=== PATIENT | male | born 1935 | race Caucasian/White ===

== ENCOUNTER 2020-03-01 11:00 | Inpatient (IN) | payer MEDICARE, OTHER ==
[2020-03-01] MEDS ORDERED: PIPERACILLIN/TAZOBACTAM 3.375 GM VIAL IV ONE (11:42)
[2020-03-01] MEDS ORDERED: OXYCODONE-ACETAMINOPHEN 5-325 MG TABLET PO ONE (11:42)
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
[2020-03-01 12:19] LABS: ABSOLUTE MONOCYTES (AUTO) 0.7 10^3/uL (0.1-1.4); ABSOLUTE NEUT (AUTO) 7.7 10^3/uL (1.7-8.2); BASOPHILS % (AUTO) 0.1 % (0-2); EOSINOPHILS % (AUTO) 0.4 % (0-6); HEMATOCRIT 42.2 % (37.9-51.0); HEMOGLOBIN 14.5 g/dL (13.5-17.0); LYMPHOCYTES % (AUTO) 10.8 % (13-45); MEAN CORPUSCULAR HEMOGLOBIN 32.2 pg (27.0-33.4); MEAN CORPUSCULAR HGB CONC 34.3 g/dL (32.0-36.0); MEAN CORPUSCULAR VOLUME 94 fl (80-97); MONOCYTES % (AUTO) 7.4 % (3-13); PLATELET COUNT 171 10^3/uL (150-450); RED CELL DISTRIBUTION WIDTH 12.5 % (11.5-14.0); SEGMENTED NEUTROPHILS % (AUTO) 81.3 % (42-78); TOTAL CELLS COUNTED % (AUTO) 100 %; WHITE BLOOD COUNT 9.4 10^3/uL (4.0-10.5)
[2020-03-01 12:22] LABS: APPEARANCE,URINE CLEAR; BILIRUBIN,URINE NEGATIVE (NEGATIVE); COLOR,URINE YELLOW; GLUCOSE, URINE >=500 mg/dL (NEGATIVE); KETONES,URINE NEGATIVE (NEGATIVE); PROTEIN,URINE 100 mg/dL (NEGATIVE); URINE SPECIFIC GRAVITY 1.033; UROBILINOGEN,URINE NEGATIVE mg/dL (<2.0)
[2020-03-01 12:42] LABS: BLOOD UREA NITROGEN 12 mg/dL (7-20); CARBON DIOXIDE 33 mmol/L (22-30); CHLORIDE 95 mmol/L (98-107); GLUCOSE 353 mg/dL (75-110); POTASSIUM 3.9 mmol/L (3.6-5.0)
[2020-03-01 12:43] LABS: ALBUMIN 3.6 g/dL (3.5-5.0); ALKALINE PHOSPHATASE 79 U/L (38-126); ANION GAP 7 (5-19); ASPARTATE AMINO TRANSFERASE 14 U/L (17-59); BILIRUBIN,DIRECT 0.1 mg/dL (0.0-0.4); BILIRUBIN,TOTAL 0.7 mg/dL (0.2-1.3); C-REACTIVE PROTEIN 88.8 mg/L (<10.0); TOTAL PROTEIN 6.6 g/dL (6.3-8.2)
[2020-03-01 12:44] LABS: URINE AMPHETAMINES SCREEN NEGATIVE; URINE BARBITURATES SCREEN NEGATIVE; URINE BENZODIAZEPINES SCREEN NEGATIVE; URINE COCAINE SCREEN NEGATIVE; URINE MARIJUANA (THC) SCREEN NEGATIVE; URINE METHADONE SCREEN NEGATIVE; URINE PHENCYCLIDINE SCREEN NEGATIVE
[2020-03-01 12:46] LABS: ALCOHOL < 10 mg/dL (NONE DETECTED)
[2020-03-01 13:02] LABS: ERYTHROCYTE SEDIMENTATION RATE 32 mm/hr (0-20)
--- NOTE | 2020-03-01 13:13 | RADIOLOGY REPORT (SQ) ---
EXAM DESCRIPTION: ANKLE LEFT COMPLETE IMAGES COMPLETED DATE/TIME: 03/01/2020 1:04 pm REASON FOR STUDY: ulcer COMPARISON: None. NUMBER OF VIEWS: Three views. TECHNIQUE: AP, lateral, and oblique without weight bearing radiographic images acquired of the left ankle. LIMITATIONS: None. FINDINGS: MINERALIZATION: Normal. BONES: No acute fracture or dislocation. No worrisome bone lesions. No significant osteophytes. JOINTS: No effusions. SOFT TISSUES: Soft tissue ulcer overlying the lateral malleolus. No conventional radiographic eviden ce of osteomyelitis. OTHER: No other significant finding. IMPRESSION: Soft tissue ulcer. No conventional radiographic evidence of osteomyelitis. TECHNICAL DOCUMENTATION: JOB ID: [id number] 2010 [employer]- All Rights Reserved Reading location - IP/workstation name: [email or web address]
--- NOTE | 2020-03-01 13:14 | RADIOLOGY REPORT (SQ) ---
EXAM DESCRIPTION: CHEST 2 VIEWS IMAGES COMPLETED DATE/TIME: 03/01/2020 1:04 pm REASON FOR STUDY: copd COMPARISON: 05/04/2011 EXAM PARAMETERS: NUMBER OF VIEWS: two views TECHNIQUE: Digital Frontal and Lateral radiographic views of the chest acquired. RADIATION DOSE: NA LIMITATIONS: none FINDINGS: LUNGS AND PLEURA: No opacities, masses or pneumothorax. No pleural effusion. MEDIASTINUM AND HILAR STRUCTURES: No masses or contour abnormalities. HEART AND VASCULAR STRUCTURES: Heart normal size. No evidence for failure. BONES: Focal right upper posterior rib deformity is unchanged. HARDWARE: None in the chest. OTHER: No other significant finding. IMPRESSION: NO ACUTE RADIOGRAPHIC FINDING IN THE CHEST. TECHNICAL DOCUMENTATION: JOB ID: [id number] 2010 [employer]- All Rights Reserved Reading location - IP/workstation name: [email or web address]
[2020-03-01] MEDS ORDERED: ACETAMINOPHEN 325 MG TABLET PO PRN (16:17)
[2020-03-01] MEDS ORDERED: PROMETHAZINE HCL 25 MG TABLET PO PRN (16:17)
[2020-03-01] MEDS ORDERED: MAG HYDROX/AL HYDROX/SIMETH SUSP 30 ML UDCUP PO PRN (16:17)
[2020-03-01] MEDS ORDERED: MAGNESIUM HYDROXIDE SUSP 30 ML UDCUP PO PRN (16:17)
[2020-03-01] MEDS ORDERED: DEXTROSE 50%-WATER 25 GM/50 ML DISP.SYRIN IV PRN ×2 (16:30)
[2020-03-01] MEDS ORDERED: DEXTROSE 40% GEL 15 GM TUBE PO PRN ×2 (16:30)
[2020-03-01] MEDS ORDERED: GLUCAGON,HUMAN RECOMB 1 MG INJ IM PRN (16:30)
[2020-03-01] MEDS ORDERED: LORAZEPAM INJ 2 MG/1 ML VIAL IV PRN (17:05)
[2020-03-01] MEDS ORDERED: NICOTINE 21 MG/24 HR PATCH.TD24 TD PRN (17:05)
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
--- NOTE | 2020-03-01 17:12 | ADVANCED CARE ---
- Diagnosis (1) Diabetic ulcer of ankle Diagnosis Current: Yes (2) Cellulitis of left ankle Diagnosis Current: Yes (3) Hyperglycemia due to type 2 diabetes mellitus Diagnosis Current: Yes (4) Hypertension Diagnosis Current: Yes (5) Ankle pain Diagnosis Current: Yes (6) Hyponatremia Diagnosis Current: Yes (7) Tobacco dependence due to cigarettes Diagnosis Current: Yes (8) Alcohol dependence Diagnosis Current: Yes (9) Malnutrition of mild degree Diagnosis Current: Yes (10) Noncompliance Diagnosis Current: Yes Attendance: Discussion was held at bedside with patient Resuscitation Status: Do Not Resuscitate Discussion: We did discuss the CODE STATUS decision. I reassured the patient that every avenue of treatment will be pursue even if he chooses DNR. That decision only comes into play if there were a catastrophic event with cardiac arrest or respiratory failure. He has no relatives at this time. He is restraining from his children. He cannot in fact name a decision maker. Evaluated realistic outcomes. I explained to him that this hospitalization could result in nursing home placement or at least home health. He did mention that he would not want to be a long-term resident of the penitentiary. He will be DO NOT RESUSCITATE at this time. He certainly is free to change his mind. Hopefully he will consider someone to make decisions if he is not able. Care Planning Goals: Consider a decision maker for consider completing the living well during this hospitalization Document(s) Completed: None Time Spent: 20 minutes
[2020-03-01] MEDS: PIPERACILLIN SODIUM/TAZOBACTAM 3.375 GM in NORMAL SALINE 100 ML IV SCH (18:46)
[2020-03-01] MEDS: DOCUSATE SODIUM 100 MG CAPSULE PO SCH (18:48)
[2020-03-01] MEDS ORDERED: LIDOCAINE 1% INJ-PF (10 MG/ML) 30 ML SDV ONE (19:57)
[2020-03-01] MEDS ORDERED: LIDOCAINE 1% INJ-PF (10 MG/ML) 30 ML SDV IM ONE (21:00)
--- NOTE | 2020-03-01 21:29 | PDOC CONSULTATION ---
Consultation Consult Date: 03/01/20 Attending physician:: DONTE HERNANDEZ Provider Consulted: TAYLOR BAIG Consult reason:: left malleolar ulcer History of Present Illness Admission Date/PCP: 03/01/20 15:42 History of Present Illness: JOHANA BOND is a 84 year old male who presents with a large left lateral malleolus ulcer. Patient has not had significant medical care in the last 15 years. Denies fever chills. Consult was made for debridement of the left lateral malleolus ulcer. Past Medical History Cardiac Medical History: Reports: Myocardial Infarction, Hypertension Pulmonary Medical History: Reports: Chronic Obstructive Pulmonary Disease (COPD) Neurological Medical History: Denies: Hemorrhagic CVA, Ischemic CVA Endocrine Medical History: Reports: Diabetes Mellitus Type 2 Denies: Hypothyroidism Renal/ Medical History: Denies: Chronic Kidney Disease, Nephrolithiasis Malignancy Medical History: Reports: Lung Cancer Musculoskeltal Medical History: Reports: Arthritis Psychiatric Medical History: Reports: Alcohol Dependency, Tobacco Dependency Denies: Depression Hematology: Denies: Anemia, Bleeding Tendencies Infectious Medical History: Reports: None Past Surgical History Past Surgical History: Reports: Other - He reports an operation on his throat but does not know what it was Social History Lives with: Alone, Other - He is from his Heaven estranged from his children Smoking Status: Current Every Day Smoker Cigarettes Packs Per Day: 1 Electronic Cigarette use?: No Last Time Smoked: prior to ED visit 03/01/20 Frequency of Alcohol Use: Heavy Hx Recreational Drug Use: No Drugs: None Hx Prescription Drug Abuse: No - Advance Directive Resuscitation Status: Do Not Resuscitate Family History Family History: DM, Malignancy, Other - Kidney failure Parental Family History Reviewed: No Children Family History Reviewed: NA Sibling(s) Family History Reviewed.: NA Medication/Allergy Home Medications: Acetaminophen [Acetaminophen Extra Strength] 500 mg PO DAILYP PRN 03/01/20 Allergies/Adverse Reactions: No Known Allergies Allergy (Unverified 06/21/14 06:12) Review of Systems Constitutional: PRESENT: fatigue, weakness Eyes: ABSENT: as per HPI, visual disturbances, other Ears: ABSENT: as per HPI, hearing changes, other Nose, Mouth, and Throat: ABSENT: as per HPI, headache(s), mouth pain, sore throat, vertigo, other Breasts: ABSENT: as per HPI, other Cardiovascular: ABSENT: as per HPI, chest pain, dyspnea on exertion, edema, orthropnea, palpitations, other Respiratory: ABSENT: as per HPI, cough, dyspnea, hemoptysis, sputum, other Gastrointestinal: ABSENT: as per HPI, abdominal pain, bloating, coffee ground emesis, constipation, diarrhea, dysphagia, heartburn, hematemesis, hematochezia, melena, nausea, vomiting, other Musculoskeletal: ABSENT: as per HPI, back pain, deformity, joint swelling, muscle weakness, other Integumentary: PRESENT: lesions Neurological: PRESENT: lack of coordination, numbness, weakness Psychiatric: ABSENT: as per HPI, anxiety, depression, hallucinations, homidical ideation, suicidal ideation, other Endocrine: ABSENT: as per HPI, cold intolerance, flushing, heat intolerance, menstrual abnormalities, polydipsia, polyphagia, polyuria, other Hematologic/Lymphatic: ABSENT: as per HPI, easy bleeding, easy bruising, lymphadenopathy, other Allergic/Immunologic: ABSENT: as per HPI, seasonal rhinorrhea, other Physical Exam Vital Signs: Temp Pulse Resp BP Pulse Ox 98.0 F 98 16 159/83 H 93 03/01/20 18:14 03/01/20 19:55 03/01/20 19:55 03/01/20 18:14 03/01/20 19:55 Intake & Output 02/29/20 03/01/20 03/02/20 06:59 06:59 06:59 Intake Total 100 Balance 100 Weight 56.9 kg General appearance: PRESENT: cooperative, disheveled Head exam: PRESENT: normocephalic Eye exam: PRESENT: EOMI Ear exam: PRESENT: normal external ear exam Mouth exam: PRESENT: moist Teeth exam: PRESENT: poor dentation Neck exam: PRESENT: full ROM Respiratory exam: PRESENT: clear to auscultation sameer Cardiovascular exam: PRESENT: RRR Pulses: PRESENT: normal femoral pulses Breast: PRESENT: Normal GI/Abdominal exam: PRESENT: soft Rectal exam: PRESENT: deferred Extremities exam: PRESENT: +1 edema - There is 1+ pitting edema in the left lower extremity there is a proximately 4 cm diameter round malleolus ulcer with a necrotic base., other Psychiatric exam: PRESENT: appropriate affect Skin exam: PRESENT: dry Results Laboratory Results: 03/01/20 11:46 03/01/20 11:46 03/01/20 03/01/20 03/01/20 11:46 11:46 11:46 WBC 9.4 RBC 4.50 Hgb 14.5 Hct 42.2 MCV 94 MCH 32.2 MCHC 34.3 RDW 12.5 Plt Count 171 Seg Neutrophils % 81.3 H Sodium 135.2 L Potassium 3.9 Chloride 95 L Carbon Dioxide 33 H Anion Gap 7 BUN 12 Creatinine 0.59 Est GFR ( Amer) > 60 Glucose 353 H Lactic Acid 1.3 Calcium 9.0 Magnesium 1.6 Total Bilirubin 0.7 AST 14 L Alkaline Phosphatase 79 C-Reactive Protein 88.8 H Total Protein 6.6 Albumin 3.6 Urine Color Urine Appearance Urine pH Ur Specific [place] Urine Protein Urine Glucose (UA) Urine Ketones Urine Blood Urine RBC (Auto) 03/01/20 11:46 WBC RBC Hgb Hct MCV MCH MCHC RDW Plt Count Seg Neutrophils % Sodium Potassium Chloride Carbon Dioxide Anion Gap BUN Creatinine Est GFR ( Amer) Glucose Lactic Acid Calcium Magnesium Total Bilirubin AST Alkaline Phosphatase C-Reactive Protein Total Protein Albumin Urine Color YELLOW Urine Appearance CLEAR Urine pH 6.0 Ur Specific [place] 1.033 Urine Protein 100 H Urine Glucose (UA) >=500 H Urine Ketones NEGATIVE Urine Blood NEGATIVE Urine RBC (Auto) 0 Impressions: Chest X-Ray 03/01/20 11:39 IMPRESSION: NO ACUTE RADIOGRAPHIC FINDING IN THE CHEST. Ankle X-Ray 03/01/20 11:41 IMPRESSION: Soft tissue ulcer. No conventional radiographic evidence of osteomyelitis. Assessment & Plan - Plan Summary Plan Summary: Pression lateral malleolus ulcer left leg most most probably pressure induced We will plan on bedside debridement.
--- NOTE | 2020-03-01 21:32 | Operative Report ---
Nonrecallable Operative Report DATE OF SURGERY: 03/01/20 PREOPERATIVE DIAGNOSIS: Left lateral malleolar ulcer POSTOPERATIVE DIAGNOSIS: Left lateral malleolar ulcer OPERATION: Debridement of left lateral malleolar ulcer SURGEON: TAYLOR BAIG ANESTHESIA: Local TISSUE REMOVED OR ALTERED: Necrotic tissue from left lateral malleolus COMPLICATIONS: None ESTIMATED BLOOD LOSS: 5 cc INTRAOPERATIVE FINDINGS: See note PROCEDURE: Procedure note; after appropriate timeout and site verification the procedure commenced. The left lateral foot was prepped and draped with Betadine prep. After appropriate timeout and site verification procedure commenced. Using a 11 blade and sterile scissors the 4 cm ulcer was debrided of the necrotic tissue at its base to clean bleeding tissue. However at the base of the wound there was obvious bone involvement. This was debrided with abrasive debriding using Kerlix gauze. The bone edges bled. The wound was admitted back to fairly normal-appearing granulation tissue underneath the eschar. The patient tolerated the procedure well a sterile dressing was applied. We will begin wet-to-dry dressings.
[2020-03-01] MEDS: ASPIRIN 81 MG TABLET, ENT COATED PO SCH (22:25)
[2020-03-01] MEDS: INSULIN REG, HUMAN 100 UNIT/ML 3 ML VIAL (PYX) SUBCUT SCH (22:25)
[2020-03-01] MEDS: HEPARIN SOD (PORCINE) 5,000 UNIT/ML 1 ML VIAL SUBCUT SCH (22:26)
[2020-03-01] MEDS: OXYCODONE-ACETAMINOPHEN 5-325 MG TABLET PO PRN (22:27)
[2020-03-01] MEDS: ATORVASTATIN CALCIUM 20 MG TABLET PO SCH (22:28)
[2020-03-01] MEDS: FAMOTIDINE 20 MG TABLET PO SCH (22:28)
[2020-03-02] MEDS: PIPERACILLIN SODIUM/TAZOBACTAM 3.375 GM in NORMAL SALINE 100 ML IV SCH ×4 (00:58→17:01)
[2020-03-02] MEDS: HEPARIN SOD (PORCINE) 5,000 UNIT/ML 1 ML VIAL SUBCUT SCH ×3 (06:12→21:22)
[2020-03-02 06:34] LABS: ABSOLUTE LYMPHOCYTES (AUTO) 1.2 10^3/uL (0.5-4.7); ABSOLUTE NEUT (AUTO) 6.9 10^3/uL (1.7-8.2); BASOPHILS % (AUTO) 0.2 % (0-2); EOSINOPHILS % (AUTO) 0.5 % (0-6); LYMPHOCYTES % (AUTO) 13.1 % (13-45); MEAN CORPUSCULAR HEMOGLOBIN 32.3 pg (27.0-33.4); MEAN CORPUSCULAR HGB CONC 35.1 g/dL (32.0-36.0); MEAN CORPUSCULAR VOLUME 92 fl (80-97); MONOCYTES % (AUTO) 10.7 % (3-13); PLATELET COUNT 162 10^3/uL (150-450); RED BLOOD COUNT 4.02 10^6/uL (4.35-5.55); RED CELL DISTRIBUTION WIDTH 12.5 % (11.5-14.0); SEGMENTED NEUTROPHILS % (AUTO) 75.5 % (42-78); TOTAL CELLS COUNTED % (AUTO) 100 %; WHITE BLOOD COUNT 9.1 10^3/uL (4.0-10.5)
[2020-03-02 06:53] LABS: ANION GAP 6 (5-19); BLOOD UREA NITROGEN 17 mg/dL (7-20); CALCIUM 8.4 mg/dL (8.4-10.2); CARBON DIOXIDE 31 mmol/L (22-30); CHLORIDE 98 mmol/L (98-107); GLUCOSE 119 mg/dL (75-110); POTASSIUM 3.4 mmol/L (3.6-5.0)
[2020-03-02 07:01] LABS: PREALBUMIN 7.3 mg/dL (17.6-36.0)
[2020-03-02] MEDS: INSULIN REG, HUMAN 100 UNIT/ML 3 ML VIAL (PYX) SUBCUT SCH ×4 (07:28→22:48)
--- NOTE | 2020-03-02 08:17 | RADIOLOGY REPORT (SQ) ---
EXAM DESCRIPTION: ARTERIAL LOWER EXTREM BILAT IMAGES COMPLETED DATE/TIME: 03/01/2020 5:59 pm REASON FOR STUDY: Large malleolus ulcer with poor circulation COMPARISON: Left ankle films 03/01/2020 TECHNIQUE: Dynamic and static washburn scale and color images acquired of the lower extremity arteries. Additional selected spectral images recorded. ABIs were not recorded. LIMITATIONS: None. FINDINGS: RIGHT LEG: ABIS: Not recorded INFLOW ARTERIES: Normal, no obstruction evident. FEMORAL ARTERIES:Multiphasic waveforms. Normal, no velocity elevation to suggest focal stenosis. Norm al color Doppler evaluation. No aneurysm. POPLITEAL ARTERY:Multiphasic waveforms. Normal, no velocity elevation to suggest focal stenosis. Norm al color Doppler evaluation. No aneurysm. PATENT TIBIOPERONEAL TRUNK AND 3 VESSEL RUNOFF: Proximal posterior tibial artery is occluded. Proxim al peroneal artery is occluded. Anterior tibial artery is patent throughout the calf with monophasic flow to the dorsalis pedis. TBI: Not performed. OTHER: No other significant finding. LEFT LEG: ABIS: Not recorded INFLOW ARTERIES: Normal, no obstruction evident. FEMORAL ARTERIES:Multiphasic waveforms. Normal, no velocity elevation to suggest focal stenosis. Norm al color Doppler evaluation. No aneurysm. POPLITEAL ARTERY:Monophasic waveforms. Normal, no velocity elevation to suggest focal stenosis. Michelle l color Doppler evaluation. No aneurysm. PATENT TIBIOPERONEAL TRUNK AND 3 VESSEL RUNOFF: Occluded posterior tibial artery proximally. Monopha sic flow seen at the ankle distally. Monophasic flow in the peroneal artery, and throughout the ante rior tibial, and dorsalis pedis artery. TBI: Not performed. OTHER: No other significant finding. IMPRESSION: Bilateral infrapopliteal disease COMMENT: [facility] NORMAL: Greater than 1.0 MINIMAL DISEASE: 0.9 to 1.0 CLAUDICATION: 0.5 to 0.9 SEVERE ARTERIAL DISEASE: Less than 0.5 [facility] NORMAL: Greater than 1.0 (1.2 If Heavy Calcifications) NORMAL TO MILD ISCHEMIA: 0.8 to 1.0 MODERATE ISCHEMIA: 0.4 to 0.8 SEVERE ISCHEMIA: Less than 0.4 TECHNICAL DOCUMENTATION: JOB ID: [id number] 2010 [employer]- All Rights Reserved Reading location - IP/workstation name: [id number]
--- NOTE | 2020-03-02 09:53 | PDOC PROGRESS REPORT ---
Subjective Progress Note for:: 03/02/20 Subjective:: Patient sleepy this morning. Still with some short-term recall. Biggest complaint is pain in the left ankle. Reason For Visit: INFECTED LEFT LATERAL MALLEOLUS ULCE, UNCONTROLLED Physical Exam Vital Signs: Temp Pulse Resp BP Pulse Ox 98.2 F 76 16 131/82 H 96 03/02/20 07:57 03/02/20 07:57 03/02/20 07:57 03/02/20 07:57 03/02/20 07:57 Intake & Output 03/01/20 03/02/20 03/03/20 06:59 06:59 06:59 Intake Total 1000 100 Output Total 1025 Balance -25 100 Weight 70 kg General appearance: PRESENT: cooperative, mild distress, thin Head exam: PRESENT: atraumatic, normocephalic Eye exam: PRESENT: conjunctiva pink. ABSENT: scleral icterus Ear exam: PRESENT: normal external ear exam. ABSENT: bleeding, drainage Mouth exam: PRESENT: dry mucosa, tongue midline Teeth exam: PRESENT: poor dentation Respiratory exam: PRESENT: clear to auscultation sameer, symmetrical, unlabored. ABSENT: rales, rhonchi, tachypnea, wheezes Cardiovascular exam: PRESENT: RRR, +S1, +S2. ABSENT: diastolic murmur, irregular rhythm, systolic murmur GI/Abdominal exam: PRESENT: normal bowel sounds, soft, other - Palpable aneurysm noted today. ABSENT: distended, guarding, tenderness Rectal exam: PRESENT: deferred Gentrourinary exam: ABSENT: indwelling catheter Extremities exam: PRESENT: +1 edema - Left leg Neurological exam: PRESENT: alert, awake, oriented to person, oriented to place, oriented to situation. ABSENT: altered Psychiatric exam: PRESENT: flat affect. ABSENT: agitated, anxious Focused psych exam: ABSENT: delusional, paranoid, restlessness Skin exam: PRESENT: dry, warm. ABSENT: rash Results Laboratory Results: 03/02/20 05:37 03/02/20 05:37 03/01/20 03/01/20 03/01/20 11:46 11:46 11:46 WBC 9.4 RBC 4.50 Hgb 14.5 Hct 42.2 MCV 94 MCH 32.2 MCHC 34.3 RDW 12.5 Plt Count 171 Seg Neutrophils % 81.3 H Sodium 135.2 L Potassium 3.9 Chloride 95 L Carbon Dioxide 33 H Anion Gap 7 BUN 12 Creatinine 0.59 Est GFR ( Amer) > 60 Glucose 353 H Lactic Acid 1.3 Calcium 9.0 Magnesium 1.6 Total Bilirubin 0.7 AST 14 L Alkaline Phosphatase 79 C-Reactive Protein 88.8 H Total Protein 6.6 Albumin 3.6 Prealbumin Urine Color Urine Appearance Urine pH Ur Specific [place] Urine Protein Urine Glucose (UA) Urine Ketones Urine Blood Urine RBC (Auto) 03/01/20 03/02/20 03/02/20 11:46 05:37 05:37 WBC 9.1 RBC 4.02 L Hgb 13.0 L Hct 37.0 L MCV 92 MCH 32.3 MCHC 35.1 RDW 12.5 Plt Count 162 Seg Neutrophils % 75.5 Sodium 134.7 L Potassium 3.4 L Chloride 98 Carbon Dioxide 31 H Anion Gap 6 BUN 17 Creatinine 0.47 L Est GFR ( Amer) > 60 Glucose 119 H Lactic Acid Calcium 8.4 Magnesium 1.5 L Total Bilirubin AST Alkaline Phosphatase C-Reactive Protein Total Protein Albumin Prealbumin 7.3 L Urine Color YELLOW Urine Appearance CLEAR Urine pH 6.0 Ur Specific [place] 1.033 Urine Protein 100 H Urine Glucose (UA) >=500 H Urine Ketones NEGATIVE Urine Blood NEGATIVE Urine RBC (Auto) 0 Impressions: Chest X-Ray 03/01/20 11:39 IMPRESSION: NO ACUTE RADIOGRAPHIC FINDING IN THE CHEST. Ankle X-Ray 03/01/20 11:41 IMPRESSION: Soft tissue ulcer. No conventional radiographic evidence of osteomyelitis. Lower Extremity Ultrasound 03/01/20 17:00 IMPRESSION: Bilateral infrapopliteal disease Assessment and Plan - Diagnosis (1) Diabetic ulcer of ankle Is this a current diagnosis for this admission?: Yes Plan: 03/01/2020 Patient on his diabetes was not seen a physician in 15 years per his report. He has a very foul-smelling ulcer on the left lateral malleolus. X-rays were taken and there were no gross changes in the cortex. His sed rate and CRP are elevated. Is it makes a difference in the treatment plan, especially length of treatment with antibiotics, we may need to obtain an MRI. His toes are cold and there could be an arterial component to this and so I have ordered Doppler studies of his arterial circulation in his legs. For now we will do saline wet-to-dry dressings until the patient is evaluated by surgery. 03/02/[address] Barksdale intervention with debridement. Report states that there was granulation tissue under the eschar. We will continue aggressive wound care and consider referral to the wound care center as an outpatient. Arterial Doppler studies of the legs show significant disease below the popliteal artery bilaterally. There is likely an arterial component to the ulcer as well. (2) Cellulitis of left ankle Is this a current diagnosis for this admission?: Yes Plan: 03/01/2020 Day specimen was sent to the microbiology lab. Zosyn was initiated due to its broad-spectrum coverage. We will continue to monitor. The patient's white blood cell count was not elevated and this ulcer has most likely been there for many months. 03/02/2020 The wound culture is growing group B beta-hemolytic strep. This is usually sensitive to penicillin class antibiotics. He did have one blood culture bottle that was positive for coagulase-negative staph. This is likely a contaminant. If there are no other new culture results tomorrow I will change his antibiotic therapy to a penicillin-based agent. (3) Hyperglycemia due to type 2 diabetes mellitus Qualifiers: Diabetes mellitus assisted insulin use: without rodent exterminator use Qualified Code(s): E11.65 - Type 2 diabetes mellitus with hyperglycemia Is this a current diagnosis for this admission?: Yes Plan: 03/02/2020 The patient is not seeing any physicians. He states that he stopped all his medications many years ago. Because of reports in the news about adverse effects of different medications he wants to try and treat things without the use of prescription drugs. His glucose on admission was 353. I have ordered a hemoglobin A1c for the morning. I have started him on metformin as well as sliding scale coverage with meals time and bedtime Accu-Cheks. 03/02/2020 The sugars are responding to metformin and insulin sliding scale. I will try and construct a regimen of oral agents as I do not believe he will be able to manage insulin therapy at home. (4) Hypertension Qualifiers: Hypertension type: essential hypertension Qualified Code(s): I10 - Essential (primary) hypertension Is this a current diagnosis for this admission?: Yes Plan: 03/01/2020 I have started low-dose lisinopril considering his blood pressure with his underlying diabetes. Continue to monitor vital signs. 03/02/2020 Blood pressure is improved. I will give the lisinopril more time before adding additional agents or changing the dose. (5) Ankle pain Qualifiers: Chronicity: chronic Is this a current diagnosis for this admission?: Yes Plan: 03/01/2020 He states that the pain is been there for some time. This is consistent with having the ulcer and infection. He states that he will get an achy shooting pain that resolves within minutes. This is sporadic. Pain has affected his ability to walk. Nonnarcotic and narcotic analgesia has been ordered. 03/02/2020 Still having pain today but he did have surgical debridement. Based on his presentation tomorrow I will initiate physical therapy. (6) Hyponatremia Is this a current diagnosis for this admission?: Yes Plan: 03/01/2020 Serum sodium is just below the lower limit normal. Will monitor at this time. This is clinically insignificant currently. 03/02/2020 Still with mildly decreased serum sodium. We will continue to monitor. (7) Tobacco dependence due to cigarettes Is this a current diagnosis for this admission?: Yes Plan: 03/01/2020 The patient still smokes up to 1 pack of cigarettes daily. A nicotine patch will be made available. 03/02/2020 No evidence of nicotine withdrawal (8) Alcohol dependence Qualifiers: Substance use status: uncomplicated Qualified Code(s): F10.20 - Alcohol dependence, uncomplicated Is this a current diagnosis for this admission?: Yes Plan: 03/01/2020 He has a history of severe alcoholism drinking as much as 1/5 of alcohol a day. Currently he states that he does not drink every day but on some days he will drink up to one half a pint of spirits. His toxicology screen was negative for alcohol at the time of this admission. 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 We will continue to interact with the patient's family introduced a Mini-Mental status exam to see how he performs. (9) Malnutrition of mild degree Is this a current diagnosis for this admission?: Yes Plan: 03/01/2020 It is difficult to assess the timeframe due to his poor memory. He states that before last Tome[place] he was over 250 pounds. His BMI is down to 18 he admits very poor appetite. He exhibits obvious decreased muscle mass and reports weakness and fatigue. I have asked for a dietitian consult 03/02/2020 Please see the registered dietitian note. The patient actually qualifies for moderate degree malnutrition based on the dietitians deeper investigation. Multiple supplements have been added for wound healing and with regard to his alcoholism. In addition protein supplements have been added to his meal trays. Continue daily weights. (10) Noncompliance Is this a current diagnosis for this admission?: Yes Plan: 03/01/2020 Long history of not seeing any physicians. He stopped taking his medications in the past. He asked if there is a way that he could see the doctor and then just keep getting his medications from the drugstore. He also wants to try and treat all of his comorbidities without prescriptions. I told him that this is not going to be possible. 03/02/2020 I had a long discussion with his designated contact who is his cousin Cheryle. She is in [place]. It is too early but we did discuss possibilities of dischar ge planning. The patient would likely benefit from half-way especially with his wound care. He has been a unable to take care of himself at home. His medication regimen will likely be difficult for him to manage especially with his history of noncompliance. We will need to construct a regimen that is straightforward and consisting of oral medications. Whether or not he will take them this is different story. (11) Abdominal aortic aneurysm Qualifiers: Presence of rupture: without rupture Qualified Code(s): I71.4 - Abdominal aortic aneurysm, without rupture Is this a current diagnosis for this admission?: Yes Plan: 03/02/2020 The patient's unruptured infrarenal abdominal aortic aneurysm has grown to 6 x 6 cm. This is up from 5 x 5 cm in 2010. Will control with aspirin, statin and antihypertensive therapy. Ideally imaging studies to monitor would be appropriate however the patient's noncompliant issues will make this difficult. 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 Slightly bigger than in 2010. Treatment plan as above. - Time Time Spent with patient: 35 or more minutes Smoking Cessation Education: 3 to 10 minutes Medications reviewed and adjusted accordingly: Yes Disposition: I did speak with the patient's cousin Cheryle who is listed in the patient's demographics as the next of kin and patient contact. She states that the patient does have a niece that he is fond of but they have not been in touch regularly. He is otherwise estranged from any other family. She was unaware that he was in the hospital. We had a long discussion about his comorbidities as well as his noncompliance. She feels that 1 of the reasons for his noncompliance is transportation. We also discussed the memory loss issue which could be cerebrovascular disease (he does have peripheral artery disease and 3 aneurysms) or changes from chronic alcoholism. She had asked if the next of kin/decision-maker responsibilities could be transferred to the niece. I will discuss this with the patient. I will try and keep her informed of his progress.
[2020-03-02] MEDS: FAMOTIDINE 20 MG TABLET PO SCH ×2 (10:49→21:25)
[2020-03-02] MEDS: LISINOPRIL 5 MG TABLET PO SCH (10:50)
[2020-03-02] MEDS: DOCUSATE SODIUM 100 MG CAPSULE PO SCH ×2 (10:50→17:01)
--- NOTE | 2020-03-02 12:48 | RADIOLOGY REPORT (SQ) ---
EXAM DESCRIPTION: CT ABD/PELVIS WITH IV ONLY IMAGES COMPLETED DATE/TIME: 03/02/2020 11:23 am REASON FOR STUDY: Assess abdominal aortic aneurysm COMPARISON: CT abdomen pelvis 03/27/2010 TECHNIQUE: CT scan of the abdomen and pelvis performed using helical scanning technique with dynamic intravenous contrast injection. No oral contrast. Images reviewed with lung, soft tissue, and bone windows. Reconstructed coronal and sagittal MPR images reviewed. Delayed images for evaluation of the urinary system also acquired. All images stored on PACS. All CT scanners at this facility use dose modulation, iterative reconstruction, and/or weight based d osing when appropriate to reduce radiation dose to as low as reasonably achievable (ALARA). [facility]: Dose Right [facility]: CareDose [facility]: Dose Right [facility]: Teradose 4D [facility]: Viss CONTRAST TYPE AND DOSE: contrast/concentration: Isovue 350.00 mg/ml; Total Contrast Delivered: 79.0 ml; Total Saline Delivered: 65.0 ml RENAL FUNCTION: Creatinine 0.5 RADIATION DOSE: CT Rad equipment meets quality standard of care and radiation dose reduction techniq ues were employed. CTDIvol: 5.5 - 7.1 mGy. DLP: 679 mGy-cm.. LIMITATIONS: None. FINDINGS: Unruptured infrarenal abdominal aortic aneurysm is present measuring 6.2 x 6.1 cm in great est diameter (was 5 x 5 cm size on 03/27/2010). There is a rind of increased density in the mural thr ombus with questionable contrast enhancement. Aortic lumen within the aneurysm is 2.6 cm diameter. Patent origins of the celiac artery, superior mesenteric artery, duplicated right renal artery, singl e left renal artery. There is enhancement of the inferior mesenteric artery likely from collateral f low. 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 Unruptured 2 cm proximal left common iliac artery aneurysm (was 1.7 cm diameter 03/27/2010). LOWER CHEST: Calcified aortic valve. No nodules or infiltrates. LIVER: Normal size. No masses. No dilated ducts. SPLEEN: Normal size. No focal lesions. PANCREAS: No masses. No significant calcifications. No adjacent inflammation or peripancreatic fluid collections. Pancreatic duct not dilated. GALLBLADDER: Gallstones. No inflammatory changes to suggest cholecystitis. ADRENAL GLANDS: No significant masses or asymmetry. RIGHT KIDNEY AND URETER: No solid masses. 1 cm right midpole renal cortical cyst. No significant ca lcifications. No hydronephrosis or hydroureter. LEFT KIDNEY AND URETER: No solid masses. 4 cm left midpole renal cortical cyst. No significant calc ifications. No hydronephrosis or hydroureter. AORTA AND VESSELS: No aneurysm. No dissection. Renal arteries, SMA, celiac without stenosis. RETROPERITONEUM: No retroperitoneal adenopathy, hemorrhage or masses. BOWEL AND PERITONEAL CAVITY: No masses or inflammatory changes. No free fluid or peritoneal masses. Diffuse colon diverticuli without CT signs of acute diverticulitis APPENDIX: Normal. PELVIS: No mass. No free fluid. Normal bladder. ABDOMINAL WALL: No masses. No hernias. BONES: No significant or acute findings. OTHER: No other significant finding. IMPRESSION: Unruptured 6.2 x 6.1 cm infrarenal abdominal aortic aneurysm with questionable enhanceme nt of mural thrombus. TECHNICAL DOCUMENTATION: JOB ID: [id number] Quality ID # [id number]: Final reports with documentation of one or more dose reduction techniques (e.g., Au tomated exposure control, adjustment of the mA and/or kV according to patient size, use of iterative reconstruction technique) 2010 [employer]- All Rights Reserved Reading location - IP/workstation name: [id number]
[2020-03-02] MEDS: NORMAL SALINE 1000 ML 1,000 ML IV PRN (13:44)
[2020-03-02] MEDS ORDERED: MAGNESIUM SULFATE/D5W 1 GM/100 ML RTUPB IV ONE (18:00)
[2020-03-02] MEDS: MAGNESIUM OXIDE 400 MG TABLET PO SCH (18:03)
[2020-03-02] MEDS: ZINC SULFATE 220 MG CAPSULE PO SCH (18:03)
[2020-03-02] MEDS: THIAMINE HCL 100 MG TABLET PO SCH (18:03)
[2020-03-02] MEDS: OXYCODONE-ACETAMINOPHEN 5-325 MG TABLET PO PRN (21:22)
[2020-03-02] MEDS: ASPIRIN 81 MG TABLET, ENT COATED PO SCH (21:22)
[2020-03-02] MEDS: ATORVASTATIN CALCIUM 20 MG TABLET PO SCH (21:24)
[2020-03-03] MEDS: PIPERACILLIN SODIUM/TAZOBACTAM 3.375 GM in NORMAL SALINE 100 ML IV SCH ×4 (00:30→17:11)
[2020-03-03] MEDS ORDERED: CEFAZOLIN 1 GM/D5W RTU 1 GM/50 ML RTUPB IV ONE ×2 (03:00→20:00)
[2020-03-03] MEDS: HEPARIN SOD (PORCINE) 5,000 UNIT/ML 1 ML VIAL SUBCUT SCH ×3 (05:48→21:43)
[2020-03-03] MEDS: OXYCODONE-ACETAMINOPHEN 5-325 MG TABLET PO PRN (05:48)
[2020-03-03] MEDS: NORMAL SALINE 1000 ML 1,000 ML IV PRN ×2 (05:49→12:14)
[2020-03-03 06:17] LABS: ABSOLUTE EOSINOPHILS # (AUTO) 0.1 10^3/uL (0.0-0.6); ABSOLUTE MONOCYTES (AUTO) 0.8 10^3/uL (0.1-1.4); ABSOLUTE NEUT (AUTO) 5.7 10^3/uL (1.7-8.2); BASOPHILS % (AUTO) 0.4 % (0-2); HEMATOCRIT 36.7 % (37.9-51.0); HEMOGLOBIN 12.8 g/dL (13.5-17.0); LYMPHOCYTES % (AUTO) 13.2 % (13-45); MEAN CORPUSCULAR HEMOGLOBIN 32.2 pg (27.0-33.4); MEAN CORPUSCULAR VOLUME 92 fl (80-97); MONOCYTES % (AUTO) 10.5 % (3-13); PLATELET COUNT 155 10^3/uL (150-450); RED BLOOD COUNT 3.98 10^6/uL (4.35-5.55); RED CELL DISTRIBUTION WIDTH 12.4 % (11.5-14.0); SEGMENTED NEUTROPHILS % (AUTO) 74.9 % (42-78); TOTAL CELLS COUNTED % (AUTO) 100 %; WHITE BLOOD COUNT 7.6 10^3/uL (4.0-10.5)
[2020-03-03 06:32] LABS: ANION GAP 6 (5-19); BLOOD UREA NITROGEN 12 mg/dL (7-20); CARBON DIOXIDE 29 mmol/L (22-30); CHLORIDE 100 mmol/L (98-107); GLUCOSE 130 mg/dL (75-110); PHOSPHORUS 2.7 mg/dL (2.5-4.5); POTASSIUM 3.1 mmol/L (3.6-5.0)
[2020-03-03] MEDS: INSULIN REG, HUMAN 100 UNIT/ML 3 ML VIAL (PYX) SUBCUT SCH ×4 (07:49→21:50)
[2020-03-03] MEDS: MULTIVITAMINS W-IRON TABLET, CHEWABLE PO SCH (09:38)
[2020-03-03] MEDS: FOLIC ACID 1 MG TABLET PO SCH (09:38)
[2020-03-03] MEDS: LISINOPRIL 5 MG TABLET PO SCH (09:38)
[2020-03-03] MEDS: FAMOTIDINE 20 MG TABLET PO SCH ×2 (09:38→21:43)
[2020-03-03] MEDS: MAGNESIUM OXIDE 400 MG TABLET PO SCH ×2 (09:38→17:11)
[2020-03-03] MEDS: DOCUSATE SODIUM 100 MG CAPSULE PO SCH ×2 (09:38→17:11)
--- NOTE | 2020-03-03 14:04 | PDOC PROGRESS REPORT ---
Subjective Progress Note for:: 03/03/20 Subjective:: Patient is resting comfortably in bed. His only complaint is that the pain in his ankles seems to be more proximal. Reason For Visit: INFECTED LEFT LATERAL MALLEOLUS ULCE, UNCONTROLLED Physical Exam Vital Signs: Temp Pulse Resp BP Pulse Ox 97.8 F 80 15 127/54 H 91 L 03/03/20 08:00 03/03/20 09:35 03/03/20 09:35 03/03/20 08:00 03/03/20 09:35 Intake & Output 03/02/20 03/03/20 03/04/20 06:59 06:59 06:59 Intake Total 1000 2490 802 Output Total 1025 500 Balance -1989 80 Weight 70 kg 68.9 kg General appearance: PRESENT: no acute distress, cooperative, thin, well- developed Head exam: PRESENT: atraumatic, normocephalic Mouth exam: PRESENT: moist, tongue midline Respiratory exam: PRESENT: clear to auscultation sameer, symmetrical, unlabored. ABSENT: prolonged expiratory phas, rales, rhonchi, tachypnea, wheezes Cardiovascular exam: PRESENT: RRR, +S1, +S2. ABSENT: diastolic murmur, irregular rhythm, systolic murmur GI/Abdominal exam: PRESENT: normal bowel sounds, soft. ABSENT: distended, guarding, tenderness Rectal exam: PRESENT: deferred Gentrourinary exam: ABSENT: indwelling catheter Extremities exam: ABSENT: pedal edema Neurological exam: PRESENT: alert, awake, oriented to person, oriented to place, oriented to situation, CN II-XII grossly intact. ABSENT: altered Psychiatric exam: PRESENT: appropriate affect. ABSENT: agitated, anxious Results Laboratory Results: 03/03/20 05:32 03/03/20 05:32 03/03/20 03/03/20 05:32 05:32 WBC 7.6 RBC 3.98 L Hgb 12.8 L Hct 36.7 L MCV 92 MCH 32.2 MCHC 35.0 RDW 12.4 Plt Count 155 Seg Neutrophils % 74.9 Sodium 134.7 L Potassium 3.1 L Chloride 100 Carbon Dioxide 29 Anion Gap 6 BUN 12 Creatinine 0.50 L Est GFR ( Amer) > 60 Glucose 130 H Calcium 8.0 L Phosphorus 2.7 Magnesium 1.6 03/01/20 11:46 Blood Blood Culture (PCR) - Final Staphylococcus Species Impressions: Chest X-Ray 03/01/20 11:39 IMPRESSION: NO ACUTE RADIOGRAPHIC FINDING IN THE CHEST. Ankle X-Ray 03/01/20 11:41 IMPRESSION: Soft tissue ulcer. No conventional radiographic evidence of osteomyelitis. Lower Extremity Ultrasound 03/01/20 17:00 IMPRESSION: Bilateral infrapopliteal disease Abdomen/Pelvis CT 03/02/20 00:00 IMPRESSION: Unruptured 6.2 x 6.1 cm infrarenal abdominal aortic aneurysm with questionable enhancement of mural thrombus. Assessment and Plan - Diagnosis (1) Diabetic ulcer of ankle Is this a current diagnosis for this admission?: Yes Plan: 03/01/2020 Patient on his diabetes was not seen a physician in 15 years per his report. He has a very foul-smelling ulcer on the left lateral malleolus. X-rays were taken and there were no gross changes in the cortex. His sed rate and CRP are elevated. Is it makes a difference in the treatment plan, especially length of treatment with antibiotics, we may need to obtain an MRI. His toes are cold and there could be an arterial component to this and so I have ordered Doppler studies of his arterial circulation in his legs. For now we will do saline wet-to-dry dressings until the patient is evaluated by surgery. 03/02/[address] Barksdale intervention with debridement. Report states that there was granulation tissue under the eschar. We will continue aggressive wound care and consider referral to the wound care center as an outpatient. Arterial Doppler studies of the legs show significant disease below the popliteal artery bilaterally. There is likely an arterial component to the ulcer as well. 03/03/2020 Continue current treatment plan. We will arrange for outpatient treatment at the wound care center. (2) Cellulitis of left ankle Is this a current diagnosis for this admission?: Yes Plan: 03/01/2020 Day specimen was sent to the microbiology lab. Zosyn was initiated due to its broad-spectrum coverage. We will continue to monitor. The patient's white blood cell count was not elevated and this ulcer has most likely been there for many months. 03/02/2020 The wound culture is growing group B beta-hemolytic strep. This is usually sensitive to penicillin class antibiotics. He did have one blood culture bottle that was positive for coagulase-negative staph. This is likely a contaminant. If there are no other new culture results tomorrow I will change his antibiotic therapy to a penicillin-based agent. 03/03/2020 DC Stephanie. Start Ancef (3) Hyperglycemia due to type 2 diabetes mellitus Qualifiers: Diabetes mellitus half-way insulin use: without predatory animal exterminator use Qualified C ode(s): E11.65 - Type 2 diabetes mellitus with hyperglycemia Is this a current diagnosis for this admission?: Yes Plan: 03/02/2020 The patient is not seeing any physicians. He states that he stopped all his medications many years ago. Because of reports in the news about adverse effects of different medications he wants to try and treat things without the use of prescription drugs. His glucose on admission was 353. I have ordered a hemoglobin A1c for the morning. I have started him on metformin as well as sliding scale coverage with meals time and bedtime Accu-Cheks. 03/02/2020 The sugars are responding to metformin and insulin sliding scale. I will try and construct a regimen of oral agents as I do not believe he will be able to manage insulin therapy at home. 03/03/2020 Continue current treatment plan (4) Hypertension Qualifiers: Hypertension type: essential hypertension Qualified Code(s): I10 - Essential (primary) hypertension Is this a current diagnosis for this admission?: Yes Plan: 03/01/2020 I have started low-dose lisinopril considering his blood pressure with his underlying diabetes. Continue to monitor vital signs. 03/02/2020 Blood pressure is improved. I will give the lisinopril more time before adding additional agents or changing the dose. 03/03/2020 No changes today. Continue to monitor. (5) Ankle pain Qualifiers: Chronicity: chronic Is this a current diagnosis for this admission?: Yes Plan: 03/01/2020 He states that the pain is been there for some time. This is consistent with having the ulcer and infection. He states that he will get an achy shooting pain that resolves within minutes. This is sporadic. Pain has affected his ability to walk. Nonnarcotic and narcotic analgesia has been ordered. 03/02/2020 Still having pain today but he did have surgical debridement. Based on his presentation tomorrow I will initiate physical therapy. 03/03/2020 Still present. I have ordered physical therapy for tomorrow. (6) Hyponatremia Is this a current diagnosis for this admission?: Yes Plan: 03/01/2020 Serum sodium is just below the lower limit normal. Will monitor at this time. This is clinically insignificant currently. 03/02/2020 Still with mildly decreased serum sodium. We will continue to monitor. 03/03/2020 Likely related to alcoholism as well as recent hyperglycemia. Sodium is stable. No change in plans. (7) Tobacco dependence due to cigarettes Is this a current diagnosis for this admission?: Yes Plan: 03/01/2020 The patient still smokes up to 1 pack of cigarettes daily. A nicotine patch will be made available. 03/02/2020 No evidence of nicotine withdrawal (8) Alcohol dependence Qualifiers: Substance use status: uncomplicated Qualified Code(s): F10.20 - Alcohol dependence, uncomplicated Is this a current diagnosis for this admission?: Yes Plan: 03/01/2020 He has a history of severe alcoholism drinking as much as 1/5 of alcohol a day. Currently he states that he does not drink every day but on some days he will drink up to one half a pint of spirits. His toxicology screen was negative for alcohol at the time of this admission. 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 We will continue to interact with the patient's family introduced a Mini-Mental status exam to see how he performs. 03/03/2020 Continue current regimen. No evidence of withdrawal at this time (9) Malnutrition of mild degree Is this a current diagnosis for this admission?: Yes Plan: 03/01/2020 It is difficult to assess the timeframe due to his poor memory. He states that before last Tomeka he was over 250 pounds. His BMI is down to 18 he admits very poor appetite. He exhibits obvious decreased muscle mass and reports weakness and fatigue. I have asked for a dietitian consult 03/02/2020 Please see the registered dietitian note. The patient actually qualifies for moderate degree malnutrition based on the dietitians deeper investigation. Multiple supplements have been added for wound healing and with regard to his alcoholism. In addition protein supplements have been added to his meal trays. Continue daily weights. 03/03/2020 Continue new regimen (10) Noncompliance Is this a current diagnosis for this admission?: Yes Plan: 03/01/2020 Long history of not seeing any physicians. He stopped taking his medications in the past. He asked if there is a way that he could see the doctor and then just keep getting his medications from the drugstore. He also wants to try and treat all of his comorbidities without prescriptions. I told him that this is not going to be possible. 03/02/2020 I had a long discussion with his designated contact who is his cousin Cheryle. She is in [place]. It is too early but we did discuss possibilities of discharge planning. The patient would likely benefit from [facility] especially with his wound care. He has been a unable to take care of himself at home. His medication regimen will likely be difficult for him to manage e specially with his history of noncompliance. We will need to construct a regimen that is straightforward and consisting of oral medications. Whether or not he will take them this is different story. (11) Abdominal aortic aneurysm Qualifiers: Presence of rupture: without rupture Qualified Code(s): I71.4 - Abdominal aortic aneurysm, without rupture Is this a current diagnosis for this admission?: Yes Plan: 03/02/2020 The patient's unruptured infrarenal abdominal aortic aneurysm has grown to 6 x 6 cm. This is up from 5 x 5 cm in 2010. Will control with aspirin, statin and antihypertensive therapy. Ideally imaging studies to monitor would be appropriate however the patient's noncompliant issues will make this difficult. 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 Slightly bigger than in 2010. Treatment plan as above. - Time Time Spent with patient: 15-24 minutes Medications reviewed and adjusted accordingly: Yes
[2020-03-03] MEDS: POTASSI CL 20 MEQ/50 ML RIDER 20 MEQ/50 ML RTUPB IV SCH ×2 (14:42→18:25)
[2020-03-03] MEDS: ZINC SULFATE 220 MG CAPSULE PO SCH (17:11)
[2020-03-03] MEDS: THIAMINE HCL 100 MG TABLET PO SCH (17:11)
[2020-03-03] MEDS ORDERED: CEFAZOLIN 1 GM/D5W RTU 1 GM/50 ML RTUPB IV SCH (21:00)
[2020-03-03] MEDS: ASPIRIN 81 MG TABLET, ENT COATED PO SCH (21:43)
[2020-03-03] MEDS: ATORVASTATIN CALCIUM 20 MG TABLET PO SCH (21:43)
[2020-03-03] MEDS: CEFAZOLIN 1 GM/D5W RTU 1 GM/50 ML RTUPB IV SCH (23:27)
[2020-03-04] MEDS: IPRATROPIUM/ALBUTEROL 0.5-2.5 MG/3 ML AMPUL NEB PRN ×2 (01:54→22:58)
[2020-03-04] MEDS ORDERED: MORPHINE SULFATE 10 MG/ML INJ IV ONE (02:00)
[2020-03-04] MEDS ORDERED: METOPROLOL TARTRATE PF/INJ 5 MG/5 ML SDV IV ONE (02:30)
[2020-03-04 02:42] LABS: ARTERIAL BLOOD BASE EXCESS -1.4 mmol/L; ARTERIAL BLOOD H2CO3 1.62 mmol/L (1.05-1.35); ARTERIAL BLOOD HCO3 25.9 mmol/L (20-24); ARTERIAL BLOOD O2 SATURATION 95.5 % (94-98); ARTERIAL BLOOD PCO2 53.8 mmHg (35-45); ARTERIAL BLOOD PO2 86.3 mmHg (80-100); ARTERIAL BLOOD TOTAL CO2 27.5 mmol/L (23-27)
[2020-03-04 02:43] LABS: ARTERIAL BLOOD FIO2 32%
--- NOTE | 2020-03-04 03:15 | Progress Note ---
Provider Note Provider Note: Critical Care Note: 03/04/2020 Critical Care Start: 01:58 Critical care issue: Chest Pain, dyspnea, hypertension, tachycardia, hypoxia I was called by the patient's nurse due to his development of acute chest pain with associated acute dyspnea. On evaluation he was discovered to have hypertension, tachycardia and hypoxia. An stat EKG was obtained showing sinus tachycardia and LVH with strain. He was given morphine sulfate 4mg IV X 1 with marked improvement in his symptoms and in his evaluation. He subsequently was given metoprolol 5 mg IV X1 for additional blood pressure reduction and heart rate control. His improvement continued on further observations. Critical Care End: 03:14 Total critical care time: 26 minutes
[2020-03-04] MEDS ORDERED: MORPHINE SULFATE 10 MG/ML INJ IV PRN ×3 (03:18)
[2020-03-04] MEDS ORDERED: METOPROLOL TARTRATE PF/INJ 5 MG/5 ML SDV IV PRN (03:20)
[2020-03-04 03:49] LABS: ABSOLUTE RETICS # 0.039 10^6/uL (0.028-0.122); HEMATOCRIT 38.7 % (37.9-51.0); HEMOGLOBIN 13.4 g/dL (13.5-17.0); MEAN CORPUSCULAR HEMOGLOBIN 32.2 pg (27.0-33.4); MEAN CORPUSCULAR HGB CONC 34.5 g/dL (32.0-36.0); MEAN CORPUSCULAR VOLUME 94 fl (80-97); PLATELET COUNT 179 10^3/uL (150-450); RED BLOOD COUNT 4.14 10^6/uL (4.35-5.55); RED CELL DISTRIBUTION WIDTH 12.8 % (11.5-14.0); RETICULOCYTE COUNT (AUTO) 0.94 % (0.66-2.85); WHITE BLOOD COUNT 9.3 10^3/uL (4.0-10.5)
[2020-03-04 04:07] LABS: ABSOLUTE LYMPHOCYTES# (MANUAL) 0.9 10^3/uL (0.5-4.7); ABSOLUTE MONOCYTES # (MANUAL) 0.4 10^3/uL (0.1-1.4); BASOPHILS % (MANUAL) 0 % (0-2); EOSINOPHILS % (MANUAL) 0 % (0-6); LYMPHOCYTES % (MANUAL) 10 % (13-45); MONOCYTES % (MANUAL) 4 % (3-13); SEGMENTED NEUTROPHILS % (MAN) 86 % (42-78); TOTAL CELLS COUNTED 100
[2020-03-04 04:08] LABS: OVALOCYTES SLIGHT; PLATELET COMMENT ADEQUATE; POIKILOCYTOSIS SLIGHT; SCHISTOCYTES SLIGHT; TOXIC GRANULATION SLIGHT
[2020-03-04 04:17] LABS: ANION GAP 9 (5-19); BLOOD UREA NITROGEN 16 mg/dL (7-20); CALCIUM 8.5 mg/dL (8.4-10.2); CARBON DIOXIDE 29 mmol/L (22-30); CHLORIDE 98 mmol/L (98-107); GLUCOSE 300 mg/dL (75-110)
[2020-03-04 04:28] LABS: CREATINE KINASE MB 1.74 ng/mL (<4.55); TROPONIN I 0.055 ng/mL
[2020-03-04 04:39] LABS: POTASSIUM 4.5 mmol/L (3.6-5.0)
[2020-03-04] MEDS: HEPARIN SOD (PORCINE) 5,000 UNIT/ML 1 ML VIAL SUBCUT SCH ×2 (05:51→14:00)
[2020-03-04] MEDS: CEFAZOLIN 1 GM/D5W RTU 1 GM/50 ML RTUPB IV SCH ×4 (05:51→23:44)
--- NOTE | 2020-03-04 07:05 | EKG REPORT ---
SEVERITY:- ABNORMAL ECG - SINUS TACHYCARDIA LEFT AXIS DEVIATION PROBABLE ANTEROSEPTAL INFARCT, OLD REPOL ABNRM SUGGESTS ISCHEMIA, DIFFUSE LEADS LVH : Confirmed by: John Ruiz 04-Mar-2020 07:04:13
[2020-03-04] MEDS: INSULIN REG, HUMAN 100 UNIT/ML 3 ML VIAL (PYX) SUBCUT SCH ×4 (08:20→21:55)
[2020-03-04] MEDS: OXYCODONE-ACETAMINOPHEN 5-325 MG TABLET PO PRN (08:24)
[2020-03-04] MEDS: POTASSIUM CHLORIDE 10 MEQ TABLET.ER PO SCH (10:11)
[2020-03-04] MEDS: MULTIVITAMINS W-IRON TABLET, CHEWABLE PO SCH (10:11)
[2020-03-04] MEDS: FOLIC ACID 1 MG TABLET PO SCH (10:11)
[2020-03-04] MEDS: MAGNESIUM OXIDE 400 MG TABLET PO SCH ×2 (10:12→17:48)
[2020-03-04] MEDS: METFORMIN HCL 500 MG TABLET PO SCH ×2 (10:12→16:47)
[2020-03-04] MEDS: LISINOPRIL 5 MG TABLET PO SCH (10:12)
[2020-03-04] MEDS: DOCUSATE SODIUM 100 MG CAPSULE PO SCH ×2 (10:12→17:48)
[2020-03-04] MEDS: FAMOTIDINE 20 MG TABLET PO SCH ×2 (10:12→21:55)
--- NOTE | 2020-03-04 11:23 | PDOC PROGRESS REPORT ---
Subjective Progress Note for:: 03/04/20 Subjective:: Patient is actually up ambulating with physical therapy. Still complaining of left ankle pain. He did have an episode of chest pain last night/early this morning. EKG and serial troponins ordered. He reports being pain-free currently. Reason For Visit: INFECTED LEFT LATERAL MALLEOLUS ULCE, UNCONTROLLED Physical Exam Vital Signs: Temp Pulse Resp BP Pulse Ox 98.2 F 86 17 147/76 H 98 03/04/20 07:43 03/04/20 07:43 03/04/20 07:43 03/04/20 07:43 03/04/20 07:43 Intake & Output 03/03/20 03/04/20 03/05/20 06:59 06:59 06:59 Intake Total 2490 2372 50 Output Total 500 Balance 1989 2372 50 Weight 68.9 kg 70.1 kg General appearance: PRESENT: cooperative, mild distress, thin Head exam: PRESENT: atraumatic, normocephalic Eye exam: PRESENT: conjunctiva pale. ABSENT: scleral icterus Ear exam: PRESENT: normal external ear exam. ABSENT: bleeding, drainage Respiratory exam: PRESENT: clear to auscultation sameer, symmetrical, unlabored. ABSENT: rales, rhonchi, tachypnea, wheezes Cardiovascular exam: PRESENT: RRR, +S1, +S2. ABSENT: diastolic murmur, irregular rhythm, systolic murmur GI/Abdominal exam: PRESENT: normal bowel sounds, soft, other - Pulsatile mass. ABSENT: distended, guarding, tenderness Rectal exam: PRESENT: deferred Extremities exam: PRESENT: pedal edema - Especially left foot Musculoskeletal exam: PRESENT: ambulatory, tenderness - Left ankle Neurological exam: PRESENT: alert, awake, oriented to person, oriented to place, oriented to situation Psychiatric exam: PRESENT: flat affect. ABSENT: agitated, anxious Focused psych exam: ABSENT: delusional, paranoid, restlessness Skin exam: PRESENT: dry, pallor, warm, other - Dressing on left ankle. ABSENT: rash Results Laboratory Results: 03/04/20 03:35 03/04/20 03:35 03/04/20 03/04/20 03/04/20 02:08 03:35 03:35 WBC 9.3 RBC 4.14 L Hgb 13.4 L Hct 38.7 MCV 94 MCH 32.2 MCHC 34.5 RDW 12.8 Plt Count 179 Seg Neutrophils % Not Reportable Retic Count (auto) 0.94 Carbonic Acid 1.62 H HCO3/H2CO3 Ratio 15:1 ABG pH 7.30 L ABG pCO2 53.8 H ABG pO2 86.3 ABG HCO3 25.9 H ABG O2 Saturation 95.5 ABG Base Excess -1.4 FiO2 32% Sodium 135.9 L Potassium 4.5 D Chloride 98 Carbon Dioxide 29 Anion Gap 9 BUN 16 Creatinine 0.70 Est GFR ( Amer) > 60 Glucose 300 H Calcium 8.5 Magnesium 1.6 Iron 29.0 L TIBC 210 L % Saturation 14 Transferrin Ferritin 204.00 Vitamin B12 482.0 Folate 14.50 03/04/20 03:35 WBC RBC Hgb Hct MCV MCH MCHC RDW Plt Count Seg Neutrophils % Retic Count (auto) Carbonic Acid HCO3/H2CO3 Ratio ABG pH ABG pCO2 ABG pO2 ABG HCO3 ABG O2 Saturation ABG Base Excess FiO2 Sodium Potassium Chloride Carbon Dioxide Anion Gap BUN Creatinine Est GFR ( Amer) Glucose Calcium Magnesium Iron TIBC % Saturation Transferrin 141.26 L Ferritin Vitamin B12 Folate 03/01/20 11:46 Blood Blood Culture (PCR) - Final Staphylococcus Species 03/01/20 11:46 Blood Blood Culture - Final Staphylococcus Hominis 03/01/20 11:46 Ankle - Diabetic Ulcer Gram Stain - Final 03/04/20 03/04/20 03:35 03:35 Creatine Kinase 32 L CK-MB (CK-2) 1.74 Troponin I 0.055 Impressions: Chest X-Ray 03/01/20 11:39 IMPRESSION: NO ACUTE RADIOGRAPHIC FINDING IN THE CHEST. Ankle X-Ray 03/01/20 11:41 IMPRESSION: Soft tissue ulcer. No conventional radiographic evidence of osteomyelitis. Lower Extremity Ultrasound 03/01/20 17:00 IMPRESSION: Bilateral infrapopliteal disease Abdomen/Pelvis CT 03/02/20 00:00 IMPRESSION: Unruptured 6.2 x 6.1 cm infrarenal abdominal aortic aneurysm with questionable enhancement of mural thrombus. Assessment and Plan - Diagnosis (1) NSTEMI (non-ST elevated myocardial infarction) Is this a current diagnosis for this admission?: Yes Plan: 03/04/2020 Patient had chest pain earlier this morning. The bunch maker obtain an EKG and ordered serial labs. His first troponin was positive. Cardiology is seen the patient. His troponin peaked at 0.156 and is now trending downward at 0.931. No further troponins will be ordered. Will be having an echocardiogram as part of the evaluation by cardiology. He has known diffuse severe systemic atherosclerosis and would be extremely poor candidate for any surgical intervention. He will be placed on therapeutic Lovenox in addition to his other medications. (2) Diabetic ulcer of ankle Is this a current diagnosis for this admission?: Yes Plan: 03/01/2020 Patient on his diabetes was not seen a physician in 15 years per his report. He has a very foul-smelling ulcer on the left lateral malleolus. X-rays were taken and there were no gross changes in the cortex. His sed rate and CRP are elevated. Is it makes a difference in the treatment plan, especially length of treatment with antibiotics, we may need to obtain an MRI. His toes are cold and there could be an arterial component to this and so I have ordered Doppler studies of his arterial circulation in his legs. For now we will do saline wet-to-dry dressings until the patient is evaluated by surgery. 03/02/[address] Barksdale intervention with debridement. Report states that there was granulation tissue under the eschar. We will continue aggressive wound care and consider referral to the wound care center as an outpatient. Arterial Doppler studies of the legs show significant disease below the popliteal artery bilaterally. There is likely an arterial component to the ulcer as well. 03/03/2020 Continue current treatment plan. We will arrange for outpatient treatment at the wound care center. 03/04/2020 Continue antibiotics and dressing changes (3) Cellulitis of left ankle Is this a current diagnosis for this admission?: Yes Plan: 03/01/2020 Day specimen was sent to the microbiology lab. Zosyn was initiated due to its broad-spectrum coverage. We will continue to monitor. The patient's white blood cell count was not elevated and this ulcer has most likely been there for many months. 03/02/2020 The wound culture is growing group B beta-hemolytic strep. This is usually sensitive to penicillin class antibiotics. He did have one blood culture bottle that was positive for coagulase-negative staph. This is likely a contaminant. If there are no other new culture results tomorrow I will change his antibiotic therapy to a penicillin-based agent. 03/03/2020 DC Zosyn. 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 He states that he stopped all his medications many years ago. Because of reports in the news about adverse effects of different medications he wants to try and treat things without the use of prescription drugs. His glucose on admission was 353. I have ordered a hemoglobin A1c for the morning. I have started him on metformin as well as sliding scale coverage with meals time and bedtime Accu-Cheks. 03/02/2020 The sugars are responding to metformin and insulin sliding scale. I will try and construct a regimen of oral agents as I do not believe he will be able to manage insulin therapy at home. 03/03/2020 Continue current treatment plan 03/04/2020 Was trying to construct a treatment plan for his diabetes that would involve only oral medications. That is very difficult and therefore I am starting him on Lantus as well as his sliding scale. I have started him on metformin as well. If possible I would like to work him back to oral medications only. (5) Hypertension Qualifiers: Hypertension type: essential hypertension Qualified Code(s): I10 - Essential (primary) hypertension Is this a current diagnosis for this admission?: Yes Plan: 03/01/2020 I have started low-dose lisinopril considering his blood pressure with his underlying diabetes. Continue to monitor vital signs. 03/02/2020 Blood pressure is improved. I will give the lisinopril more time before adding additional agents or changing the dose. 03/03/2020 No changes today. Continue to monitor. 03/04/2020 Excellent blood pressure control continue current regimen (6) Ankle pain Qualifiers: Chronicity: chronic Is this a current diagnosis for this admission?: Yes Plan: 03/01/2020 He states that the pain is been there for some time. This is consistent with having the ulcer and infection. He states that he will get an achy shooting pain that resolves within minutes. This is sporadic. Pain has affected his ability to walk. Nonnarcotic and narcotic analgesia has been ordered. 03/02/2020 Still having pain today but he did have surgical debridement. Based on his presentation tomorrow I will initiate physical therapy. 03/03/2020 Still present. I have ordered physical therapy for tomorrow. 03/04/2020 PRN medications available. Patient is now working with physical therapy. Movement may help some of the discomfort. (7) Hyponatremia Is this a current diagnosis for this admission?: Yes Plan: 03/01/2020 Serum sodium is just below the lower limit normal. Will monitor at this time. This is clinically insignificant currently. 03/02/2020 Still with mildly decreased serum sodium. We will continue to monitor. 03/03/2020 Likely related to alcoholism as well as recent hyperglycemia. Sodium is stable. No change in plans. (8) Tobacco dependence due to cigarettes Is this a current diagnosis for this admission?: Yes Plan: 03/01/2020 The patient still smokes up to 1 pack of cigarettes daily. A nicotine patch will be made available. 03/02/2020 No evidence of nicotine withdrawal (9) Alcohol dependence Qualifiers: Substance use status: uncomplicated Qualified Code(s): F10.20 - Alcohol dependence, uncomplicated Is this a current diagnosis for this admission?: Yes Plan: 03/01/2020 He has a history of severe alcoholism drinking as much as 1/5 of alcohol a day. Currently he states that he does not drink every day but on some days he will drink up to one half a pint of spirits. His toxicology screen was negative for alcohol at the time of this admission. 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 We will continue to interact with the patient's family introduced a Mini-Mental status exam to see how he performs. 03/03/2020 Continue current regimen. No evidence of withdrawal at this time 03/04/2020 Evidently patient is a little anxious. This settled with benzodiazepines. (10) Malnutrition of mild degree Is this a current diagnosis for this admission?: Yes Plan: 03/01/2020 It is difficult to assess the timeframe due to his poor memory. He states that before last [place] he was over 250 pounds. His BMI is down to 18 he admits very poor appetite. He exhibits obvious decreased muscle mass and reports weakness and fatigue. I have asked for a dietitian consult 03/02/2020 Please see the registered dietitian note. The patient actually qualifies for moderate degree malnutrition based on the dietitians deeper investigation. Multiple supplements have been added for wound healing and with regard to his alcoholism. In addition protein supplements have been added to his meal trays. Continue daily weights. 03/03/2020 Continue new regimen (11) Noncompliance Is this a current diagnosis for this admission?: Yes Plan: 03/01/2020 Long history of not seeing any physicians. He stopped taking his medications in the past. He asked if there is a way that he could see the doctor and then just keep getting his medications from the drugstore. He also wants to try and treat all of his comorbidities without prescriptions. I told him that this is not going to be possible. 03/02/2020 I had a long discussion with his designated contact who is his cousin Cheryle. She is in [place]. It is too early but we did discuss possibilities of discharge planning. The patient would likely benefit from penitentiary especially with his wound care. He has been a unable to take care of himself at home. His medication regimen will likely be difficult for him to manage especially with his history of noncompliance. We will need to construct a regimen that is straightforward and consisting of oral medications. Whether or not he will take them this is different story. (12) Abdominal aortic aneurysm Qualifiers: Presence of rupture: without rupture Qualified Code(s): I71.4 - Abdominal aortic aneurysm, without rupture Is this a current diagnosis for this admission?: Yes Plan: 03/02/2020 The patient's unruptured infrarenal abdominal aortic aneurysm has grown to 6 x 6 cm. This is up from 5 x 5 cm in 2010. Will control with aspirin, statin and antihypertensive therapy. Ideally imaging studies to monitor would be appropriate however the patient's noncompliant issues will make this difficult. 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 Slightly bigger than in 2010. Treatment plan as above.
[2020-03-04 12:57] LABS: CREATINE KINASE MB 2.4 ng/mL (<4.55)
[2020-03-04 13:03] LABS: TROPONIN I 0.156 ng/mL
[2020-03-04] MEDS ORDERED: NITROGLYCERIN 0.4 MG/TAB 25 TAB/BOTTLE SL PRN (13:27)
[2020-03-04] MEDS ORDERED: ATORVASTATIN CALCIUM 80 MG TABLET PO ONE (14:00)
[2020-03-04 15:19] LABS: CREATINE KINASE MB 2.48 ng/mL (<4.55)
[2020-03-04 15:26] LABS: TROPONIN I 0.131 ng/mL
[2020-03-04] MEDS: NORMAL SALINE 1000 ML 1,000 ML IV PRN (17:05)
[2020-03-04] MEDS: ZINC SULFATE 220 MG CAPSULE PO SCH (17:47)
[2020-03-04] MEDS: THIAMINE HCL 100 MG TABLET PO SCH (17:48)
[2020-03-04] MEDS ORDERED: LORAZEPAM INJ 2 MG/1 ML VIAL IV PRN (18:40)
--- NOTE | 2020-03-04 20:32 | PDOC CONSULTATION ---
Consultation Consult Date: 03/04/20 Attending physician:: DONTE HERNANDEZ Provider Consulted: MORGAN OLSON Consult reason:: Chest pain History of Present Illness Admission Date/PCP: 03/01/20 15:42 History of Present Illness: JOHANA BOND is a 84 year old male with history of alcoholism, tobacco abuse of 1 to 2 packs/day for over 30 years, hypertension, AAA, diabetes, hyperlipidemia who has not been evaluated by a medical provider in 15 years or more and who is consulted to our service for further evaluation of chest pain. He was admitted to the hospital because of a large and infected ulcer on the left lateral malleolus which was debrided by surgery, the patient was begun on antibiotics. The patient tells me that he has been having episodes of chest pain several months. He describes it as a tightness across his chest, associated with shortness of breath, lasting anywhere from 15 to 20 minutes, with spontaneous resolution, recurs at random, without known triggers and usually happens when he is at rest. Of note, the patient is sedentary for the most part. He denied associated palpitations, diaphoresis, syncope, presyncope, dizziness or lightheadedness. His last episode of chest tightness occurred early this morning at around 0300 and has not recurred. His first troponin was indeterminate but his second troponin is mildly elevated. Physical exam on 03/04/2020: GENERAL: Pleasant and conversational. Oriented x3 with normal mood. Not in a cute distress. Disheveled. HEENT: Normocephalic, atraumatic. Pupils equal. Sclerae anicteric. Oropharynx moist. NECK: No JVD. No carotid bruits. LUNGS: Clear to auscultation bilaterally. Normal respiratory effort without the use of accessory muscles or intercostal retractions. CARDIOVASCULAR: Regular rate and rhythm, normal S1 and S2 without murmurs, rubs, or gallops. PMI not displaced. EXTREMITIES: No edema, no cyanosis, no clubbing. Difficult to palpate pulses. MUSCULOSKELETAL: No chest tenderness to palpation. NEUROLOGIC: Nonfocal. No gross sensory or motor deficits bilateral upper or lower extremities. Past Medical History Cardiac Medical History: Reports: Myocardial Infarction, Hypertension Pulmonary Medical History: Reports: Chronic Obstructive Pulmonary Disease (COPD) Neurological Medical History: Denies: Hemorrhagic CVA, Ischemic CVA Endocrine Medical History: Reports: Diabetes Mellitus Type 2 Denies: Hypothyroidism Renal/ Medical History: Denies: Chronic Kidney Disease, Nephrolithiasis Malignancy Medical History: Reports: Lung Cancer Musculoskeltal Medical History: Reports: Arthritis Psychiatric Medical History: Reports: Alcohol Dependency, Tobacco Dependency Denies: Depression Hematology: Denies: Anemia, Bleeding Tendencies Infectious Medical History: Reports: None Past Surgical History Past Surgical History: Reports: Other - He reports an operation on his throat but does not know what it was Social History Lives with: Alone, Other - He is from his [place] estranged from his children Smoking Status: Current Every Day Smoker Cigarettes Packs Per Day: 1 Electronic Cigarette use?: No Last Time Smoked: prior to ED visit 03/01/20 Frequency of Alcohol Use: Heavy Hx Recreational Drug Use: No Drugs: None Hx Prescription Drug Abuse: No - Advance Directive Resuscitation Status: Do Not Resuscitate Family History Family History: DM, Malignancy, Other - Kidney failure Parental Family History Reviewed: Yes Children Family History Reviewed: Yes Sibling(s) Family History Reviewed.: Yes Medication/Allergy Home Medications: Acetaminophen [Acetaminophen Extra Strength] 500 mg PO DAILYP PRN 03/01/20 Allergies/Adverse Reactions: No Known Allergies Allergy (Unverified 06/21/14 06:12) Physical Exam Vital Signs: Temp Pulse Resp BP Pulse Ox 98.2 F 86 17 147/76 H 98 03/04/20 07:43 03/04/20 07:43 03/04/20 07:43 03/04/20 07:43 03/04/20 07:43 Intake & Output 03/03/20 03/04/20 03/05/20 06:59 06:59 06:59 Intake Total 2490 2372 100 Output Total 500 Balance 1989 2372 100 Weight 68.9 kg 70.1 kg Results Laboratory Results: 03/04/20 03:35 03/04/20 03:35 03/04/20 03/04/20 03/04/20 02:08 03:35 03:35 WBC 9.3 RBC 4.14 L Hgb 13.4 L Hct 38.7 MCV 94 MCH 32.2 MCHC 34.5 RDW 12.8 Plt Count 179 Seg Neutrophils % Not Reportable Retic Count (auto) 0.94 Carbonic Acid 1.62 H HCO3/H2CO3 Ratio 15:1 ABG pH 7.30 L ABG pCO2 53.8 H ABG pO2 86.3 ABG HCO3 25.9 H ABG O2 Saturation 95.5 ABG Base Excess -1.4 FiO2 32% Sodium 135.9 L Potassium 4.5 D Chloride 98 Carbon Dioxide 29 Anion Gap 9 BUN 16 Creatinine 0.70 Est GFR ( Amer) > 60 Glucose 300 H Calcium 8.5 Magnesium 1.6 Iron 29.0 L TIBC 210 L % Saturation 14 Transferrin Ferritin 204.00 Vitamin B12 482.0 Folate 14.50 03/04/20 03:35 WBC RBC Hgb Hct MCV MCH MCHC RDW Plt Count Seg Neutrophils % Retic Count (auto) Carbonic Acid HCO3/H2CO3 Ratio ABG pH ABG pCO2 ABG pO2 ABG HCO3 ABG O2 Saturation ABG Base Excess FiO2 Sodium Potassium Chloride Carbon Dioxide Anion Gap BUN Creatinine Est GFR ( Amer) Glucose Calcium Magnesium Iron TIBC % Saturation Transferrin 141.26 L Ferritin Vitamin B12 Folate 03/01/20 11:46 Ankle - Diabetic Ulcer Gram Stain - Final 03/01/20 11:46 Ankle - Diabetic Ulcer Wound Culture - Final Enterococcus Faecalis(Group D) Group B Beta Streptococcus Anaerococcus (Peptostrep) Sp. Prevotella Species 03/01/20 11:46 Blood Blood Culture (PCR) - Final Staphylococcus Species 03/01/20 11:46 Blood Blood Culture - Final Staphylococcus Hominis 03/04/20 03/04/20 03/04/20 03:35 03:35 10:50 Creatine Kinase 32 L 32 L CK-MB (CK-2) 1.74 Troponin I 0.055 03/04/20 10:50 Creatine Kinase CK-MB (CK-2) 2.40 Troponin I 0.156 Impressions: Chest X-Ray 03/01/20 11:39 IMPRESSION: NO ACUTE RADIOGRAPHIC FINDING IN THE CHEST. Ankle X-Ray 03/01/20 11:41 IMPRESSION: Soft tissue ulcer. No conventional radiographic evidence of osteomyelitis. Lower Extremity Ultrasound 03/01/20 17:00 IMPRESSION: Bilateral infrapopliteal disease Abdomen/Pelvis CT 03/02/20 00:00 IMPRESSION: Unruptured 6.2 x 6.1 cm infrarenal abdominal aortic aneurysm with questionable enhancement of mural thrombus. 03/04/20 03:35 03/04/20 03:35 MCV 94 fl (80-97) 03/04/20 03:35 MCH 32.2 pg (27.0-33.4) 03/04/20 03:35 MCHC 34.5 g/dL (32.0-36.0) 03/04/20 03:35 RDW 12.8 % (11.5-14.0) 03/04/20 03:35 Seg Neutrophils % Not Reportable 03/04/20 03:35 Retic Count (auto) 0.94 % (0.66-2.85) 03/04/20 03:35 Carbonic Acid 1.62 mmol/L (1.05-1.35) H 03/04/20 02:08 HCO3/H2CO3 Ratio 15:1 03/04/20 02:08 ABG pH 7.30 (7.35-7.45) L 03/04/20 02:08 ABG pCO2 53.8 mmHg (35-45) H 03/04/20 02:08 ABG pO2 86.3 mmHg (80-100) 03/04/20 02:08 ABG HCO3 25.9 mmol/L (20-24) H 03/04/20 02:08 ABG O2 Saturation 95.5 % (94-98) 03/04/20 02:08 ABG Base Excess -1.4 mmol/L 03/04/20 02:08 FiO2 32% 03/04/20 02:08 Chloride 98 mmol/L (98-107) 03/04/20 03:35 Carbon Dioxide 29 mmol/L (22-30) 03/04/20 03:35 Anion Gap 9 (5-19) 03/04/20 03:35 Est GFR ( Amer) > 60 (>60) 03/04/20 03:35 Glucose 300 mg/dL (75-110) H 03/04/20 03:35 Lactic Acid 1.3 mmol/L (0.7-2.1) 03/01/20 11:46 Calcium 8.5 mg/dL (8.4-10.2) 03/04/20 03:35 Phosphorus 2.7 mg/dL (2.5-4.5) 03/03/20 05:32 Magnesium 1.6 mg/dL (1.6-2.3) 03/04/20 03:35 Iron 29.0 ug/dL (49-181) L 03/04/20 03:35 TIBC 210 ug/dL (250-450) L 03/04/20 03:35 % Saturation 14 % 03/04/20 03:35 Transferrin 141.26 mg/dL (206.00-381.00) L 03/04/20 03:35 Ferritin 204.00 ng/mL (17.9-464.0) 03/04/20 03:35 Total Bilirubin 0.7 mg/dL (0.2-1.3) 03/01/20 11:46 AST 14 U/L (17-59) L 03/01/20 11:46 Alkaline Phosphatase 79 U/L (38-126) 03/01/20 11:46 C-Reactive Protein 88.8 mg/L (<10.0) H 03/01/20 11:46 Total Protein 6.6 g/dL (6.3-8.2) 03/01/20 11:46 Albumin 3.6 g/dL (3.5-5.0) 03/01/20 11:46 Prealbumin 7.3 mg/dL (17.6-36.0) L 03/02/20 05:37 Vitamin B12 482.0 pg/mL (239-931) 03/04/20 03:35 Folate 14.50 ng/mL (>2.76) 03/04/20 03:35 Urine Color YELLOW 03/01/20 11:46 Urine Appearance CLEAR 03/01/20 11:46 Urine pH 6.0 (5.0-9.0) 03/01/20 11:46 Ur Specific [place] 1.033 03/01/20 11:46 Urine Protein 100 mg/dL (NEGATIVE) H 03/01/20 11:46 Urine Glucose (UA) >=500 mg/dL (NEGATIVE) H 03/01/20 11:46 Urine Ketones NEGATIVE mg/dL (NEGATIVE) 03/01/20 11:46 Urine Blood NEGATIVE (NEGATIVE) 03/01/20 11:46 Urine RBC (Auto) 0 /HPF 03/01/20 11:46 03/01/20 11:46 Ankle - Diabetic Ulcer Gram Stain - Final 03/01/20 11:46 Ankle - Diabetic Ulcer Wound Culture - Final Enterococcus Faecalis(Group D) Group B Beta Streptococcus Anaerococcus (Peptostrep) Sp. Prevotella Species 03/01/20 11:46 Blood Blood Culture (PCR) - Final Staphylococcus Species 03/01/20 11:46 Blood Blood Culture - Final Staphylococcus Hominis 03/04/20 03/04/20 03/04/20 03:35 03:35 10:50 Creatine Kinase 32 L 32 L CK-MB (CK-2) 1.74 Troponin I 0.055 03/04/20 10:50 Creatine Kinase CK-MB (CK-2) 2.40 Troponin I 0.156 Current Medication List Generic Name Dose Route Start Last Admin Trade Name Freq PRN Reason Stop Dose Admin Acetaminophen 325 mg 03/01/20 16:17 Tylenol 325 Mg Tablet PO 03/31/20 16:16 Q4HP PRN FOR PAIN OR TEMP Al Hydrox/Mg Hydrox/Simethicone 30 ml 03/01/20 16:17 Maalox Plus Susp 30 Udcup PO 03/31/20 16:16 Q6HP PRN HEARTBURN Albuterol/Ipratropium 3 ml 03/01/20 16:17 03/04/20 01:54 Duoneb 3 Ml Ampul NEB 03/31/20 16:16 3 ml RTQ4HP PRN Administration SHORTNESS OF BREATH Aspirin 81 mg 03/01/20 22:00 03/03/20 21:43 Ecotrin 81 Mg Ec Tablet PO 03/31/20 21:59 81 mg QHS TEA Administration Atorvastatin Calcium 20 mg 03/01/20 22:00 03/03/20 21:43 Lipitor 20 Mg Tablet PO 03/31/20 21:59 20 mg QHS TEA Administration Dextrose 12.5 gm 03/01/20 16:30 Dextrose Inj 50% Syringe (25 Gm/50 Ml) IV 03/31/20 16:29 PRN PRN FOR BG 50-69 IN ALERT PATIENT Protocol Dextrose 25 gm 03/01/20 16:30 Dextrose Inj 50% Syringe (25 Gm/50 Ml) IV 03/31/20 16:29 PRN PRN PER PROTOCOL Protocol Docusate Sodium 100 mg 03/01/20 18:00 03/04/20 10:12 Colace 100 Mg Capsule PO 03/31/20 17:59 100 mg BID TEA Administration Famotidine 20 mg 03/01/20 22:00 03/04/20 10:12 Pepcid 20 Mg Tablet PO 03/31/20 21:59 20 mg Q12 TEA Administration Folic Acid 1 mg 03/03/20 10:00 03/04/20 10:11 Folvite 1 Mg Tablet PO 04/02/20 09:59 1 mg DAILY TEA Administration Glucagon 1 mg 03/01/20 16:30 Glucagen Inj 1 Mg Vial IM 03/31/20 16:29 PRN PRN Evaluate for BG < 70 Protocol Glucose 15 gm 03/01/20 16:30 Glutose 40% Gel 15 Gm Tube PO 03/31/20 16:29 PRN PRN FOR BG 50-69 IN ALERT PATIENT Protocol Glucose 30 gm 03/01/20 16:30 Glutose 40% Gel 15 Gm Tube PO 03/31/20 16:29 PRN PRN FOR BG < 50 IN ALERT PATIENT Protocol Heparin Sodium (Porcine) 5,000 unit 03/01/20 22:00 03/04/20 05:51 Heparin Inj 5,000 Units/Ml 1 Ml Vial SUBCUT 03/31/20 21:59 5,000 unit Q8 TEA Administration Sodium Chloride 1,000 mls @ 125 mls/hr 03/01/20 16:17 03/03/20 12:14 Nacl 0.9% 1000 Ml Iv Soln IV 03/31/20 16:16 125 mls/hr CONTINUOUS PRN Administration THIS MED IS NOT "PRN" Cefazolin Sodium/Dextrose 1 gm in 50 mls @ 100 mls/hr 03/04/20 00:00 03/04/20 12:19 Ancef Rtu 1 Gm/D5w 50 Ml Premix Bag IV 03/11/20 00:00 Infused Q6 TEA Infusion Insulin Human Regular 0 - 12 unit 03/01/20 22:00 03/04/20 11:48 Humulin R (Pyxis) Insulin 100 Unit/Ml 3ml SUBCUT 03/31/20 21:59 8 unit ACHS TEA Administration Protocol Lisinopril 5 mg 03/02/20 10:00 03/04/20 10:12 Prinivil 5 Mg Tablet PO 04/01/20 09:59 5 mg DAILY TEA Administration Lorazepam 1 mg 03/01/20 17:05 03/02/20 03:09 Ativan Inj 2 Mg/1 Ml Vial IV 03/08/20 17:04 1 mg Q4HP PRN Administration ANXIETY/AGITATION Magnesium Hydroxide 30 ml 03/01/20 16:17 Milk Of Magnesia 30 Ml Udcup PO 03/31/20 16:16 HSP PRN FOR CONSTIPATION Magnesium Oxide 400 mg 03/02/20 18:00 03/04/20 10:12 Mag-Ox 400 Mg Tablet PO 04/01/20 17:59 400 mg BID TEA Administration Metformin HCl 500 mg 03/04/20 09:00 03/04/20 10:12 Glucophage 500 Mg Tablet PO 04/03/20 08:59 500 mg BIDACBS TEA Administration Metoprolol Tartrate 5 mg 03/04/20 03:20 Lopressor Inj/Pf 5 Mg/5 Ml Sdv IV 04/03/20 03:19 Q4HP PRN Give For Sbp > 160 / Dbp > 100 Morphine Sulfate 2 mg 03/04/20 03:18 Morphine 10 Mg/Ml Inj IV 03/11/20 03:17 Q2HP PRN FOR PAIN SCALE 1-2 Morphine Sulfate 3 mg 03/04/20 03:18 Morphine 10 Mg/Ml Inj IV 03/11/20 03:17 Q2HP PRN FOR PAIN SCALE 3-4 Morphine Sulfate 4 mg 03/04/20 03:18 Morphine 10 Mg/Ml Inj IV 03/11/20 03:17 Q2HP PRN PAIN SCALE OF 5 Multivitamins/Iron 2 tab 03/03/20 10:00 03/04/20 10:11 Flintstones Chewable Multivit W/Fe Tab PO 04/02/20 09:59 2 tab DAILY TEA Administration Nicotine 1 each 03/01/20 17:05 Nicoderm 21 Mg/24 Hr Transderm Patch TD 03/31/20 17:04 DAILYP PRN WITHDRAWAL SYMPTOMS Oxycodone/Acetaminophen 1 tab 03/01/20 16:17 03/04/20 08:24 Percocet 5-325 Mg Tablet PO 03/08/20 16:16 1 tab Q6HP PRN Administration FOR PAIN SCALE 3-5 Potassium Chloride 20 meq 03/04/20 10:00 03/04/20 10:11 Klor-Con 10 Meq Tablet Er PO 04/03/20 09:59 20 meq DAILY TEA Administration Promethazine HCl 12.5 mg 03/01/20 16:17 Phenergan 25 Mg Tablet PO 03/31/20 16:16 Q4HP PRN FOR NAUSEA/VOMITING Sodium Chloride 2.5 ml 03/01/20 22:00 03/04/20 05:45 Saline Flush 2.5 Ml Monoject Prefil Syrin IV 03/31/20 21:59 Not Given Q8 TEA Thiamine HCl 100 mg 03/02/20 18:00 03/03/20 17:11 Thiamine 100 Mg Tablet PO 04/01/20 17:59 100 mg QPM TEA Administration Zinc Sulfate 220 mg 03/02/20 18:00 03/03/20 17:11 Zinc-220 Capsule PO 04/01/20 17:59 220 mg QPM TEA Administration Discontinued Medications Generic Name Dose Route Start Last Admin Trade Name Tacoq PRN Reason Stop Dose Admin Piperacillin Sod/Tazobactam 100 mls @ 200 mls/hr 03/01/20 18:00 03/03/20 18:28 Sod 3.375 gm/ Sodium Chloride IV 03/08/20 17:59 Infused Q6 TEA Infusion Magnesium Sulfate/Dextrose 1 gm in 100 mls @ 100 mls/hr 03/02/20 18:00 03/02/20 19:25 Magnesium Sulfate Rtu-D5w 1 Gm/100 Ml Premix IV 03/02/20 18:59 Infused NOW ONE Infusion Potassium Chloride/Water 20 meq in 50 mls @ 25 mls/hr 03/03/20 15:00 03/03/20 18:25 Potassium Chloride Mike 20 Meq/50 Ml IV 03/03/20 18:59 25 mls/hr Q2H TEA 25 mls/hr Administration Cefazolin Sodium/Dextrose 1 gm in 50 mls @ 100 mls/hr 03/03/20 21:00 03/04/20 08:36 Ancef Rtu 1 Gm/D5w 50 Ml Premix Bag IV 03/10/20 20:59 Infused Q6A TEA Infusion Cefazolin Sodium/Dextrose 1 gm in 50 mls @ 100 mls/hr 03/03/20 20:00 03/03/20 23:22 Ancef Rtu 1 Gm/D5w 50 Ml Premix Bag IV 03/03/20 20:29 Not Given NOW ONE Lidocaine HCl Confirm 03/01/20 19:57 03/01/20 22:27 Xylocaine 1% Inj-Pf (10 Mg/Ml) 30 Ml Sdv Administered 03/01/20 19:58 Not Given Dose 30 ml .ROUTE .STK-MED ONE Lidocaine HCl 30 ml 03/01/20 21:00 03/01/20 19:45 Xylocaine 1% Inj-Pf (10 Mg/Ml) 30 Ml Sdv IM 03/01/20 21:01 30 ml NOW ONE Administration Metoprolol Tartrate 5 mg 03/04/20 02:30 03/04/20 02:24 Lopressor Inj/Pf 5 Mg/5 Ml Sdv IV 03/04/20 02:31 5 mg NOW ONE Administration Morphine Sulfate 4 mg 03/04/20 02:00 03/04/20 01:47 Morphine 10 Mg/Ml Inj IV 03/04/20 02:01 4 mg NOW ONE Administration Oxycodone/Acetaminophen 1 tab 03/01/20 11:42 03/01/20 12:37 Percocet 5-325 Mg Tablet PO 03/01/20 11:43 1 tab NOW ONE Administration Piperacillin Sod/Tazobactam Sod 3.375 gm 03/01/20 11:42 03/01/20 12:00 Zosyn Inj 3.375 Gm Vial IV 03/01/20 11:43 3.375 gm IVBAG (ED) ONE Administration Assessment & Plan - Diagnosis (1) NSTEMI (non-ST elevated myocardial infarction) Plan: 84-year-old male with multiple cardiac risk factors and symptoms very suggestive of unstable angina who now has a mildly positive troponin consistent with a non- STEMI. Unfortunately the patient is being treated with antibiotics for a large, infected ulcer which precludes invasive assessment. Luckily enough he has remained asymptomatic since approximately 0300 today. His blood pressure is stable and he has remained asymptomatic so far during the day today. At this point we have no choice but to treat the patient medically until his infected ulcer is treated and there is no evidence of infection. So far, there is no class I indication for urgent LHC but we will keep a close eye on the patient so that if he develops hemodynamic or electrical instability he will be transferred for LHC. Recommendations: -Continue with baby aspirin and lisinopril. -Add Toprol 25 mg daily. -Start Imdur 30 mg, 0.5 tablet daily. -Sublingual nitroglycerin as needed. -Continuous cardiac telemetry to assess for electrical instability. -Increase atorvastatin to 80 mg daily. -Echocardiogram today. -Full anticoagulation with heparin infusion or Lovenox 1 mg/kg twice daily. -Continue to trend cardiac enzymes. (2) Hypertension Qualifiers: Hypertension type: essential hypertension Qualified Code(s): I10 - Essential (primary) hypertension Plan: His blood pressure is slightly above goal. Recommendations: -Uptitrate lisinopril to achieve goal blood pressure 130/80 or below. (3) AAA (abdominal aortic aneurysm) without rupture Plan: The patient has a large AAA, 6.2 cm x 6.1 cm infrarenal aneurysm with questionable mural thrombus. He meets criteria for intervention therefore he should be evaluated by vascular surgery. Recommendations: -Vascular surgery consult by primary team. (4) Hyperlipidemia associated with type 2 diabetes mellitus Plan: The patient should be on high intensity statin therapy. Recommendations: -Increase Lipitor to 80 mg daily. -Fasting LFTs and lipid panel with direct LDL. -Repeat fasting LFTs and lipid panel in 6 weeks. (5) Tobacco dependence due to cigarettes Plan: I discussed with the patient the importance of quitting smoking however he is now ready to quit yet.
[2020-03-04 21:12] LABS: CREATINE KINASE MB 2.18 ng/mL (<4.55); TROPONIN I 0.098 ng/mL
[2020-03-04] MEDS: ENOXAPARIN SODIUM INJ 80 MG/0.8 ML DISP.SYRIN SUBCUT SCH (21:55)
[2020-03-04] MEDS: ASPIRIN 81 MG TABLET, ENT COATED PO SCH (21:55)
[2020-03-04] MEDS ORDERED: INSULIN GLARGINE,HUM.REC.ANLOG 1,000 UNIT/10 ML VIAL SUBCUT SCH (22:00)
[2020-03-04 23:14] LABS: APPEARANCE,URINE CLEAR; BILIRUBIN,URINE NEGATIVE (NEGATIVE); COLOR,URINE YELLOW; GLUCOSE, URINE >=500 mg/dL (NEGATIVE); KETONES,URINE NEGATIVE (NEGATIVE); LEUKOCYTE ESTERASE,URINE NEGATIVE (NEGATIVE); NITRITE,URINE NEGATIVE (NEGATIVE); PROTEIN,URINE 30 mg/dL (NEGATIVE); URINE SPECIFIC GRAVITY 1.021; UROBILINOGEN,URINE NEGATIVE mg/dL (<2.0)
[2020-03-05 02:28] LABS: TROPONIN I 0.129 ng/mL
[2020-03-05] MEDS: NORMAL SALINE 1000 ML 1,000 ML IV PRN (04:05)
[2020-03-05] MEDS: CEFAZOLIN 1 GM/D5W RTU 1 GM/50 ML RTUPB IV SCH ×2 (05:21→11:40)
[2020-03-05] MEDS: OXYCODONE-ACETAMINOPHEN 5-325 MG TABLET PO PRN (05:37)
[2020-03-05 06:59] LABS: ABSOLUTE EOSINOPHILS # (AUTO) 0.1 10^3/uL (0.0-0.6); ABSOLUTE LYMPHOCYTES (AUTO) 1.5 10^3/uL (0.5-4.7); ABSOLUTE MONOCYTES (AUTO) 0.7 10^3/uL (0.1-1.4); ABSOLUTE NEUT (AUTO) 4.3 10^3/uL (1.7-8.2); BASOPHILS % (AUTO) 0.2 % (0-2); EOSINOPHILS % (AUTO) 1.3 % (0-6); HEMATOCRIT 33.8 % (37.9-51.0); HEMOGLOBIN 11.8 g/dL (13.5-17.0); LYMPHOCYTES % (AUTO) 22.2 % (13-45); MEAN CORPUSCULAR HEMOGLOBIN 32.2 pg (27.0-33.4); MEAN CORPUSCULAR HGB CONC 34.8 g/dL (32.0-36.0); MEAN CORPUSCULAR VOLUME 93 fl (80-97); MONOCYTES % (AUTO) 10.8 % (3-13); PLATELET COUNT 151 10^3/uL (150-450); RED BLOOD COUNT 3.66 10^6/uL (4.35-5.55); RED CELL DISTRIBUTION WIDTH 12.8 % (11.5-14.0); SEGMENTED NEUTROPHILS % (AUTO) 65.5 % (42-78); TOTAL CELLS COUNTED % (AUTO) 100 %; WHITE BLOOD COUNT 6.6 10^3/uL (4.0-10.5)
[2020-03-05 07:21] LABS: BLOOD UREA NITROGEN 16 mg/dL (7-20); CALCIUM 8.2 mg/dL (8.4-10.2); GLUCOSE 265 mg/dL (75-110)
[2020-03-05] MEDS: INSULIN REG, HUMAN 100 UNIT/ML 3 ML VIAL (PYX) SUBCUT SCH ×3 (07:25→16:16)
[2020-03-05 07:27] LABS: CARBON DIOXIDE 35 mmol/L (22-30); CHLORIDE 97 mmol/L (98-107)
[2020-03-05 07:29] LABS: ANION GAP 3 (5-19)
[2020-03-05] MEDS: METFORMIN HCL 500 MG TABLET PO SCH ×2 (08:05→15:53)
--- NOTE | 2020-03-05 08:07 | XCELERA REPORT ---
[address] [address] Transthoracic Echocardiogram Report Name: JOHANA BOND Age: 84 yrs Gender: Male : 1935 Patient Status: Inpatient Patient Location: [address] [place], [place] [id number] Study Date: 03/04/2020 06:21 PM Height: 68 in Weight: 154 lb BSA: 1.8 m2 Procedure: A complete two-dimensional transthoracic echocardiogram was performed (2D, M-mode, spectral and color flow Doppler). The study was technically adequate with some images being suboptimal in quality. Reason For Study: chest pain, elevated troponin Ordering Physician: DONTE HERNANDEZ Performed By: Gilda Carmona Interpretation Summary The left ventricle is grossly normal size. Left ventricular systolic function is severely reduced. The Ejection Fraction estimate is 30-35%. Doppler measurements suggest normal left ventricular diastolic function. There is moderate global hypokinesis of the left ventricle. There is no thrombus. Trace MR, trace TR. Mildly dilated root at 4.1 cm. No prior studies for comparison. MMode/2D Measurements & Calculations RVDd: 2.9 cm LVIDd: 4.9 cm FS: 14.0 % Ao root diam: 4.1 cm IVSd: 1.1 cm LVIDs: 4.2 cm EDV(Teich): Ao root area: 112.1 ml LVPWd: 1.0 cm 13.0 cm2 ESV(Teich): LA dimension: 3.4 cm 78.6 ml EF(Teich): 29.8 % LVLd ap4: 7.2 cm SV(MOD-sp4): EDV(MOD-sp4): 15.0 ml 46.0 ml LVLs ap4: 7.4 cm ESV(MOD-sp4): 31.0 ml EF(MOD-sp4): 32.6 % Doppler Measurements & Calculations MV E max raine: MV P1/2t max raine: Ao V2 max: LV V1 max P.0 cm/sec 99.5 cm/sec 109.5 cm/sec 2.1 mmHg MV A max raine: MV P1/2t: 71.5 msec Ao max PG: LV V1 max: 77.1 cm/sec 4.8 mmHg 73.0 cm/sec MVA(P1/2t): 3.1 cm2 MV E/A: 1.2 MV dec slope: 407.6 cm/sec2 MV dec time: 0.22 sec PA V2 max: MV P1/2t-pr_phl: 67.5 cm/sec 71.5 msec PA max P.8 mmHg Left Ventricle The left ventricle is grossly normal size. Left ventricular systolic function is severely reduced. The Ejection Fraction estimate is 30-35%. Doppler measurements suggest normal left ventricular diastolic function. There is moderate global hypokinesis of the left ventricle. There is no thrombus. Right Ventricle The right ventricle is normal in size, thickness and function. The right ventricular systolic function is normal. Atria The right atrium is normal in size. The left atrial size is normal. The interatrial septum is intact with no evidence for an atrial septal defect. Mitral Valve There is mild to moderate mitral leaflet calcification. There is no evidence of mitral valve prolapse. There is no mitral valve stenosis. There is a trace amount of mitral regurgitation. Aortic Valve The aortic valve is moderately calcified. There is no aortic valve stenosis. No aortic regurgitation is present. Tricuspid Valve The tricuspid valve is not well visualized, but is grossly normal. There is no tricuspid valve prolapse. There is no tricuspid stenosis. There is a trace amount of tricuspid regurgitation. Pulmonic Valve The pulmonic valve is not well seen, but is grossly normal. There is no vegetation on the pulmonic valve. There is no pulmonic valvular stenosis. There is no pulmonic valvular regurgitation. Great Vessels The aortic root is mildly dilated. Effusions There is no pericardial effusion. : DONTE HERNANDEZ Antonio
--- NOTE | 2020-03-05 08:13 | EKG REPORT ---
SEVERITY:- ABNORMAL ECG - SINUS RHYTHM LEFT AXIS DEVIATION ANTERIOR INFARCT, AGE INDETERMINATE BORDERLINE T ABNORMALITIES, INFERIOR LEADS BORDERLINE PROLONGED QT INTERVAL : Confirmed by: Merari Streeter MD 05-Mar-2020 08:12:40
[2020-03-05] MEDS: FOLIC ACID 1 MG TABLET PO SCH (09:16)
[2020-03-05] MEDS: MAGNESIUM OXIDE 400 MG TABLET PO SCH (09:16)
[2020-03-05] MEDS: MULTIVITAMINS W-IRON TABLET, CHEWABLE PO SCH (09:17)
[2020-03-05] MEDS: LISINOPRIL 5 MG TABLET PO SCH (09:17)
[2020-03-05] MEDS: ENOXAPARIN SODIUM INJ 80 MG/0.8 ML DISP.SYRIN SUBCUT SCH (09:17)
[2020-03-05] MEDS: POTASSIUM CHLORIDE 10 MEQ TABLET.ER PO SCH (09:17)
[2020-03-05] MEDS: FAMOTIDINE 20 MG TABLET PO SCH (09:17)
[2020-03-05] MEDS: DOCUSATE SODIUM 100 MG CAPSULE PO SCH (09:17)
[2020-03-05] MEDS ORDERED: FUROSEMIDE INJ/PF 40 MG/4 ML SDV IV SCH (10:00)
--- NOTE | 2020-03-05 10:28 | PDOC PROGRESS REPORT ---
Subjective Progress Note for:: 03/05/20 Subjective:: JOHANA BOND is a 84 year old male with history of alcoholism, tobacco abuse of 1 to 2 packs/day for over 30 years, hypertension, AAA, diabetes, hyperlipidemia who has not been evaluated by a medical provider in 15 years or more and who is consulted to our service for further evaluation of chest pain. He was admitted to the hospital because of a large and infected ulcer on the left lateral malleolus which was debrided by surgery, the patient was begun on antibiotics. The patient tells me that he has been having episodes of chest pain several months. He describes it as a tightness across his chest, associated with shortness of breath, lasting anywhere from 15 to 20 minutes, with spontaneous resolution, recurs at random, without known triggers and usually happens when he is at rest. Of note, the patient is sedentary for the most part. He denied associated palpitations, diaphoresis, syncope, presyncope, dizziness or lightheadedness. His last episode of chest tightness occurred early this morning at around 0300 and has not recurred. His first troponin was indeterminate but his second troponin is mildly elevated. 03/05/2020: The patient had an uneventful night. He does complain of shortness of breath and dyspnea on exertion this morning but denies recurrence of chest pain. Of note, his fluid balance is +7.4 L. His telemetry shows normal sinus rhythm with PVCs along with artifact. Physical exam on 03/05/2020: GENERAL: Pleasant and conversational. Oriented x3 with normal mood. Not in acute distress however he is noted to be mildly short of breath. Disheveled. HEENT: Normocephalic, atraumatic. Pupils equal. Sclerae anicteric. Oropharynx moist. NECK: No JVD. LUNGS: Faint crackles at both bases. Normal respiratory effort without the use of accessory muscles or intercostal retractions. CARDIOVASCULAR: Regular rate and rhythm, normal S1 and S2 without murmurs, rubs, or gallops. PMI not displaced. EXTREMITIES: No edema, no cyanosis, no clubbing. Difficult to palpate pulses. MUSCULOSKELETAL: No chest tenderness to palpation. NEUROLOGIC: Nonfocal. No gross sensory or motor deficits bilateral upper or lower extremities. Reason For Visit: INFECTED LEFT LATERAL MALLEOLUS ULCE, UNCONTROLLED Physical Exam Vital Signs: Temp Pulse Resp BP Pulse Ox 98.0 F 82 16 112/82 100 03/04/20 23:54 03/05/20 02:00 03/04/20 23:54 03/04/20 23:54 03/05/20 04:28 Intake & Output 03/04/20 03/05/20 03/06/20 06:59 06:59 06:59 Intake Total 3372 2486 Output Total 450 Balance 3372 2036 Weight 70.1 kg 70 kg Results Laboratory Results: 03/05/20 06:36 03/05/20 06:36 03/04/20 03/05/20 03/05/20 22:50 06:36 06:36 WBC 6.6 RBC 3.66 L Hgb 11.8 L Hct 33.8 L MCV 93 MCH 32.2 MCHC 34.8 RDW 12.8 Plt Count 151 Seg Neutrophils % 65.5 Sodium 135.1 L Potassium 4.0 Chloride 97 L Carbon Dioxide 35 H Anion Gap 3 L BUN 16 Creatinine 0.68 Est GFR ( Amer) > 60 Glucose 265 H Calcium 8.2 L Magnesium 1.5 L Urine Color YELLOW Urine Appearance CLEAR Urine pH 6.0 Ur Specific Gifford 1.021 Urine Protein 30 H Urine Glucose (UA) >=500 H Urine Ketones NEGATIVE Urine Blood NEGATIVE Urine Nitrite NEGATIVE Ur Leukocyte Esterase NEGATIVE Urine WBC (Auto) 0 03/01/20 11:46 Ankle - Diabetic Ulcer Gram Stain - Final 03/01/20 11:46 Ankle - Diabetic Ulcer Wound Culture - Final Enterococcus Faecalis(Group D) Group B Beta Streptococcus Anaerococcus (Peptostrep) Sp. Prevotella Species 03/01/20 11:46 Blood Blood Culture (PCR) - Final Staphylococcus Species 03/01/20 11:46 Blood Blood Culture - Final Staphylococcus Hominis 03/04/20 03/04/20 03/04/20 03:35 03:35 10:50 Creatine Kinase 32 L 32 L CK-MB (CK-2) 1.74 Troponin I 0.055 03/04/20 03/04/20 03/04/20 10:50 14:35 14:35 Creatine Kinase 30 L CK-MB (CK-2) 2.40 2.48 Troponin I 0.156 0.131 03/04/20 03/04/20 03/05/20 20:09 20:09 01:46 Creatine Kinase 32 L 30 L CK-MB (CK-2) 2.18 Troponin I 0.098 03/05/20 01:46 Creatine Kinase CK-MB (CK-2) 2.00 Troponin I 0.129 Impressions: Chest X-Ray 03/01/20 11:39 IMPRESSION: NO ACUTE RADIOGRAPHIC FINDING IN THE CHEST. Ankle X-Ray 03/01/20 11:41 IMPRESSION: Soft tissue ulcer. No conventional radiographic evidence of osteomyelitis. Lower Extremity Ultrasound 03/01/20 17:00 IMPRESSION: Bilateral infrapopliteal disease Abdomen/Pelvis CT 03/02/20 00:00 IMPRESSION: Unruptured 6.2 x 6.1 cm infrarenal abdominal aortic aneurysm with questionable enhancement of mural thrombus. 03/05/20 06:36 03/05/20 06:36 MCV 93 fl (80-97) 03/05/20 06:36 MCH 32.2 pg (27.0-33.4) 03/05/20 06:36 MCHC 34.8 g/dL (32.0-36.0) 03/05/20 06:36 RDW 12.8 % (11.5-14.0) 03/05/20 06:36 Seg Neutrophils % 65.5 % (42-78) 03/05/20 06:36 Retic Count (auto) 0.94 % (0.66-2.85) 03/04/20 03:35 Carbonic Acid 1.62 mmol/L (1.05-1.35) H 03/04/20 02:08 HCO3/H2CO3 Ratio 15:1 03/04/20 02:08 ABG pH 7.30 (7.35-7.45) L 03/04/20 02:08 ABG pCO2 53.8 mmHg (35-45) H 03/04/20 02:08 ABG pO2 86.3 mmHg (80-100) 03/04/20 02:08 ABG HCO3 25.9 mmol/L (20-24) H 03/04/20 02:08 ABG O2 Saturation 95.5 % (94-98) 03/04/20 02:08 ABG Base Excess -1.4 mmol/L 03/04/20 02:08 FiO2 32% 03/04/20 02:08 Chloride 97 mmol/L (98-107) L 03/05/20 06:36 Carbon Dioxide 35 mmol/L (22-30) H 03/05/20 06:36 Anion Gap 3 (5-19) L 03/05/20 06:36 Est GFR ( Amer) > 60 (>60) 03/05/20 06:36 Glucose 265 mg/dL (75-110) H 03/05/20 06:36 Lactic Acid 1.3 mmol/L (0.7-2.1) 03/01/20 11:46 Calcium 8.2 mg/dL (8.4-10.2) L 03/05/20 06:36 Phosphorus 2.7 mg/dL (2.5-4.5) 03/03/20 05:32 Magnesium 1.5 mg/dL (1.6-2.3) L 03/05/20 06:36 Iron 29.0 ug/dL (49-181) L 03/04/20 03:35 TIBC 210 ug/dL (250-450) L 03/04/20 03:35 % Saturation 14 % 03/04/20 03:35 Transferrin 141.26 mg/dL (206.00-381.00) L 03/04/20 03:35 Ferritin 204.00 ng/mL (17.9-464.0) 03/04/20 03:35 Total Bilirubin 0.7 mg/dL (0.2-1.3) 03/01/20 11:46 AST 14 U/L (17-59) L 03/01/20 11:46 Alkaline Phosphatase 79 U/L (38-126) 03/01/20 11:46 C-Reactive Protein 88.8 mg/L (<10.0) H 03/01/20 11:46 Total Protein 6.6 g/dL (6.3-8.2) 03/01/20 11:46 Albumin 3.6 g/dL (3.5-5.0) 03/01/20 11:46 Prealbumin 7.3 mg/dL (17.6-36.0) L 03/02/20 05:37 Vitamin B12 482.0 pg/mL (239-931) 03/04/20 03:35 Folate 14.50 ng/mL (>2.76) 03/04/20 03:35 Urine Color YELLOW 03/04/20 22:50 Urine Appearance CLEAR 03/04/20 22:50 Urine pH 6.0 (5.0-9.0) 03/04/20 22:50 Ur Specific Gifford 1.021 03/04/20 22:50 Urine Protein 30 mg/dL (NEGATIVE) H 03/04/20 22:50 Urine Glucose (UA) >=500 mg/dL (NEGATIVE) H 03/04/20 22:50 Urine Ketones NEGATIVE mg/dL (NEGATIVE) 03/04/20 22:50 Urine Blood NEGATIVE (NEGATIVE) 03/04/20 22:50 Urine Nitrite NEGATIVE (NEGATIVE) 03/04/20 22:50 Ur Leukocyte Esterase NEGATIVE (NEGATIVE) 03/04/20 22:50 Urine WBC (Auto) 0 /HPF 03/04/20 22:50 Urine RBC (Auto) 0 /HPF 03/01/20 11:46 03/01/20 11:46 Ankle - Diabetic Ulcer Gram Stain - Final 03/01/20 11:46 Ankle - Diabetic Ulcer Wound Culture - Final Enterococcus Faecalis(Group D) Group B Beta Streptococcus Anaerococcus (Peptostrep) Sp. Prevotella Species 03/01/20 11:46 Blood Blood Culture (PCR) - Final Staphylococcus Species 03/01/20 11:46 Blood Blood Culture - Final Staphylococcus Hominis 03/04/20 03/04/20 03/04/20 03:35 03:35 10:50 Creatine Kinase 32 L 32 L CK-MB (CK-2) 1.74 Troponin I 0.055 03/04/20 03/04/20 03/04/20 10:50 14:35 14:35 Creatine Kinase 30 L CK-MB (CK-2) 2.40 2.48 Troponin I 0.156 0.131 03/04/20 03/04/20 03/05/20 20:09 20:09 01:46 Creatine Kinase 32 L 30 L CK-MB (CK-2) 2.18 Troponin I 0.098 03/05/20 01:46 Creatine Kinase CK-MB (CK-2) 2.00 Troponin I 0.129 Current Medication List Generic Name Dose Route Start Last Admin Trade Name Freq PRN Reason Stop Dose Admin Acetaminophen 325 mg 03/01/20 16:17 Tylenol 325 Mg Tablet PO 03/31/20 16:16 Q4HP PRN FOR PAIN OR TEMP Al Hydrox/Mg Hydrox/Simethicone 30 ml 03/01/20 16:17 Maalox Plus Susp 30 Udcup PO 03/31/20 16:16 Q6HP PRN HEARTBURN Albuterol/Ipratropium 3 ml 03/01/20 16:17 03/04/20 22:58 Duoneb 3 Ml Ampul NEB 03/31/20 16:16 3 ml RTQ4HP PRN Administration SHORTNESS OF BREATH Aspirin 81 mg 03/01/20 22:00 03/04/20 21:55 Ecotrin 81 Mg Ec Tablet PO 03/31/20 21:59 81 mg QHS TEA Administration Atorvastatin Calcium 80 mg 03/05/20 22:00 Lipitor 80 Mg Tablet PO 04/04/20 21:59 QHS TEA Dextrose 12.5 gm 03/01/20 16:30 Dextrose Inj 50% Syringe (25 Gm/50 Ml) IV 03/31/20 16:29 PRN PRN FOR BG 50-69 IN ALERT PATIENT Protocol Dextrose 25 gm 03/01/20 16:30 Dextrose Inj 50% Syringe (25 Gm/50 Ml) IV 03/31/20 16:29 PRN PRN PER PROTOCOL Protocol Docusate Sodium 100 mg 03/01/20 18:00 03/04/20 17:48 Colace 100 Mg Capsule PO 03/31/20 17:59 100 mg BID TEA Administration Enoxaparin Sodium 70 mg 03/04/20 22:00 03/04/20 21:55 Lovenox Inj 80 Mg/0.8 Ml Disp.Syrin SUBCUT 04/03/20 21:59 70 mg Q12 TEA Administration Famotidine 20 mg 03/01/20 22:00 03/04/20 21:55 Pepcid 20 Mg Tablet PO 03/31/20 21:59 20 mg Q12 TEA Administration Folic Acid 1 mg 03/03/20 10:00 03/04/20 10:11 Folvite 1 Mg Tablet PO 04/02/20 09:59 1 mg DAILY TEA Administration Glucagon 1 mg 03/01/20 16:30 Glucagen Inj 1 Mg Vial IM 03/31/20 16:29 PRN PRN Evaluate for BG < 70 Protocol Glucose 15 gm 03/01/20 16:30 Glutose 40% Gel 15 Gm Tube PO 03/31/20 16:29 PRN PRN FOR BG 50-69 IN ALERT PATIENT Protocol Glucose 30 gm 03/01/20 16:30 Glutose 40% Gel 15 Gm Tube PO 03/31/20 16:29 PRN PRN FOR BG < 50 IN ALERT PATIENT Protocol Sodium Chloride 1,000 mls @ 125 mls/hr 03/01/20 16:17 03/05/20 04:05 Nacl 0.9% 1000 Ml Iv Soln IV 03/31/20 16:16 125 mls/hr CONTINUOUS PRN Administration THIS MED IS NOT "PRN" Cefazolin Sodium/Dextrose 1 gm in 50 mls @ 100 mls/hr 03/04/20 00:00 03/05/20 05:51 Ancef Rtu 1 Gm/D5w 50 Ml Premix Bag IV 03/11/20 00:00 Infused Q6 TEA Infusion Insulin Glargine 6 unit 03/04/20 22:00 03/04/20 21:56 Lantus Insulin 100 Unit/1 Ml 10 Ml SUBCUT 04/03/20 21:59 6 unit QHS TEA Administration Insulin Human Regular 0 - 12 unit 03/01/20 22:00 03/05/20 07:25 Humulin R (Pyxis) Insulin 100 Unit/Ml 3ml SUBCUT 03/31/20 21:59 6 unit ACHS TEA Administration Protocol Lisinopril 5 mg 03/02/20 10:00 03/04/20 10:12 Prinivil 5 Mg Tablet PO 04/01/20 09:59 5 mg DAILY TEA Administration Lorazepam 2 mg 03/04/20 18:40 Ativan Inj 2 Mg/1 Ml Vial IV 03/08/20 17:04 Q4HP PRN ANXIETY/AGITATION Magnesium Hydroxide 30 ml 03/01/20 16:17 Milk Of Magnesia 30 Ml Udcup PO 03/31/20 16:16 HSP PRN FOR CONSTIPATION Magnesium Oxide 400 mg 03/02/20 18:00 03/04/20 17:48 Mag-Ox 400 Mg Tablet PO 04/01/20 17:59 400 mg BID TEA Administration Metformin HCl 500 mg 03/04/20 09:00 03/05/20 08:05 Glucophage 500 Mg Tablet PO 04/03/20 08:59 500 mg BIDACBS TEA Administration Metoprolol Tartrate 5 mg 03/04/20 03:20 Lopressor Inj/Pf 5 Mg/5 Ml Sdv IV 04/03/20 03:19 Q4HP PRN Give For Sbp > 160 / Dbp > 100 Morphine Sulfate 2 mg 03/04/20 03:18 Morphine 10 Mg/Ml Inj IV 03/11/20 03:17 Q2HP PRN FOR PAIN SCALE 1-2 Morphine Sulfate 3 mg 03/04/20 03:18 Morphine 10 Mg/Ml Inj IV 03/11/20 03:17 Q2HP PRN FOR PAIN SCALE 3-4 Morphine Sulfate 4 mg 03/04/20 03:18 03/05/20 06:54 Morphine 10 Mg/Ml Inj IV 03/11/20 03:17 4 mg Q2HP PRN Administration PAIN SCALE OF 5 Multivitamins/Iron 2 tab 03/03/20 10:00 03/04/20 10:11 Flintstones Chewable Multivit W/Fe Tab PO 04/02/20 09:59 2 tab DAILY TEA Administration Nicotine 1 each 03/01/20 17:05 Nicoderm 21 Mg/24 Hr Transderm Patch TD 03/31/20 17:04 DAILYP PRN WITHDRAWAL SYMPTOMS Nitroglycerin 1 tab 03/04/20 13:27 Nitrostat 0.4 Mg (1/150 Gr) Tabs 25/Bottle SL 04/03/20 13:26 Q5MP PRN FOR CHEST PAIN Oxycodone/Acetaminophen 1 tab 03/01/20 16:17 03/05/20 05:37 Percocet 5-325 Mg Tablet PO 03/08/20 16:16 1 tab Q6HP PRN Administration FOR PAIN SCALE 3-5 Potassium Chloride 20 meq 03/04/20 10:00 03/04/20 10:11 Klor-Con 10 Meq Tablet Er PO 04/03/20 09:59 20 meq DAILY TEA Administration Promethazine HCl 12.5 mg 03/01/20 16:17 Phenergan 25 Mg Tablet PO 03/31/20 16:16 Q4HP PRN FOR NAUSEA/VOMITING Sodium Chloride 2.5 ml 03/01/20 22:00 03/05/20 05:21 Saline Flush 2.5 Ml Monoject Prefil Syrin IV 03/31/20 21:59 Not Given Q8 TEA Thiamine HCl 100 mg 03/02/20 18:00 03/04/20 17:48 Thiamine 100 Mg Tablet PO 04/01/20 17:59 100 mg QPM TEA Administration Zinc Sulfate 220 mg 05/16/20 18:00 03/04/20 17:47 Zinc-220 Capsule PO 04/01/20 17:59 220 mg QPM TEA Administration Discontinued Medications Generic Name Dose Route Start Last Admin Trade Name Heidy PRN Reason Stop Dose Admin Atorvastatin Calcium 20 mg 03/01/20 22:00 03/03/20 21:43 Lipitor 20 Mg Tablet PO 03/31/20 21:59 20 mg QHS TEA Administration Atorvastatin Calcium 80 mg 03/04/20 14:00 03/04/20 14:07 Lipitor 80 Mg Tablet PO 03/04/20 14:01 80 mg NOW ONE Administration Heparin Sodium (Porcine) 5,000 unit 03/01/20 22:00 03/04/20 14:00 Heparin Inj 5,000 Units/Ml 1 Ml Vial SUBCUT 03/31/20 21:59 5,000 unit Q8 TEA Administration Piperacillin Sod/Tazobactam 100 mls @ 200 mls/hr 03/01/20 18:00 03/03/20 18:28 Sod 3.375 gm/ Sodium Chloride IV 03/08/20 17:59 Infused Q6 TEA Infusion Magnesium Sulfate/Dextrose 1 gm in 100 mls @ 100 mls/hr 03/02/20 18:00 03/02/20 19:25 Magnesium Sulfate Rtu-D5w 1 Gm/100 Ml Premix IV 03/02/20 18:59 Infused NOW ONE Infusion Potassium Chloride/Water 20 meq in 50 mls @ 25 mls/hr 03/03/20 15:00 03/03/20 18:25 Potassium Chloride Mike 20 Meq/50 Ml IV 03/03/20 18:59 25 mls/hr Q2H TEA 25 mls/hr Administration Cefazolin Sodium/Dextrose 1 gm in 50 mls @ 100 mls/hr 03/03/20 21:00 03/04/20 08:36 Ancef Rtu 1 Gm/D5w 50 Ml Premix Bag IV 03/10/20 20:59 Infused Q6A TEA Infusion Cefazolin Sodium/Dextrose 1 gm in 50 mls @ 100 mls/hr 03/03/20 20:00 03/03/20 23:22 Ancef Rtu 1 Gm/D5w 50 Ml Premix Bag IV 03/03/20 20:29 Not Given NOW ONE Lidocaine HCl Confirm 03/01/20 19:57 03/01/20 22:27 Xylocaine 1% Inj-Pf (10 Mg/Ml) 30 Ml Sdv Administered 03/01/20 19:58 Not Given Dose 30 ml .ROUTE .STK-MED ONE Lidocaine HCl 30 ml 03/01/20 21:00 03/01/20 19:45 Xylocaine 1% Inj-Pf (10 Mg/Ml) 30 Ml Sdv IM 03/01/20 21:01 30 ml NOW ONE Administration Lorazepam 1 mg 03/01/20 17:05 03/02/20 03:09 Ativan Inj 2 Mg/1 Ml Vial IV 03/08/20 17:04 1 mg Q4HP PRN Administration ANXIETY/AGITATION Metoprolol Tartrate 5 mg 03/04/20 02:30 03/04/20 02:24 Lopressor Inj/Pf 5 Mg/5 Ml Sdv IV 03/04/20 02:31 5 mg NOW ONE Administration Morphine Sulfate 4 mg 03/04/20 02:00 03/04/20 01:47 Morphine 10 Mg/Ml Inj IV 03/04/20 02:01 4 mg NOW ONE Administration Oxycodone/Acetaminophen 1 tab 03/01/20 11:42 03/01/20 12:37 Percocet 5-325 Mg Tablet PO 03/01/20 11:43 1 tab NOW ONE Administration Piperacillin Sod/Tazobactam Sod 3.375 gm 03/01/20 11:42 03/01/20 12:00 Zosyn Inj 3.375 Gm Vial IV 03/01/20 11:43 3.375 gm IVBAG (ED) ONE Administration Assessment & Plan - Diagnosis (1) NSTEMI (non-ST elevated myocardial infarction) Is this a current diagnosis for this admission?: Yes Plan: The patient is electrically stable however he is fluid overloaded. His echocardiogram yesterday demonstrated an ejection fraction between 30 and 35%. Unfortunately he did not receive his Toprol or isosorbide as recommended yesterday. As of today he is at least 7.37 L positive in his fluid balance with evidence of heart failure. Given his mildly elevated troponins, cardiomyopathy and cardiac risk factors as well as chest pain we will transfer the patient to [facility] for C. I discussed the case with Dr. Griffith in the catheterization lab given that the patient has what appears to be a pressure ulcer. Dr. Griffith graciously agreed to evaluate the patient and eventually proceed with LHC. The risks, benefits and alternatives to LHC were discussed with the patient. His questions were answered and he verbalized his desire to proceed. Recommendations: -Continue with baby aspirin and lisinopril. -Furosemide 40 mg IV twice daily, first dose now. -Replace electrolytes as needed. -Add Toprol 25 mg daily. -Start Imdur 30 mg, 0.5 tablet daily. -Sublingual nitroglycerin as needed. -Continuous cardiac telemetry. -Continue with atorvastatin to 80 mg daily. -Continue with full anticoagulation with heparin infusion or Lovenox 1 mg/kg twice daily. -Transfer to [facility]. (2) Hypertension Qualifiers: Hypertension type: essential hypertension Qualified Code(s): I10 - Essential (primary) hypertension Is this a current diagnosis for this admission?: Yes Plan: His blood pressure is essentially at goal. Recommendations: -Continue with current medical management. (3) AAA (abdominal aortic aneurysm) without rupture Plan: The patient has a large AAA, 6.2 cm x 6.1 cm infrarenal aneurysm with questionable mural thrombus. I discussed the patient yesterday with Dr. Broussard, vascular surgeon at [facility], who graciously agreed to see the patient when we transfer him. Recommendations: -Vascular surgery consult with Dr. Broussard at [facility]. (4) Hyperlipidemia associated with type 2 diabetes mellitus Plan: The patient should be on high intensity statin therapy. Recommendations: -Increase Lipitor to 80 mg daily. -Fasting LFTs and lipid panel with direct LDL. -Repeat fasting LFTs and lipid panel in 6 weeks. (5) Tobacco dependence due to cigarettes Is this a current diagnosis for this admission?: Yes Plan: I discussed with the patient the importance of quitting smoking however he is now ready to quit yet. (6) Heart failure with reduced ejection fraction Plan: Likely secondary to ischemic cardiomyopathy. He is fluid overloaded with a positive fluid balance of 7.37 L. Please see above for recommendations.
[2020-03-05] MEDS ORDERED: HEPARIN SODIUM,PORCINE/D5W 25,000 UNIT/250 ML RTUINJ IV PRN (12:36)
--- NOTE | 2020-03-05 13:18 | PDOC TRANSFER SUMMARY ---
General Admission Date/PCP: 03/01/20 15:42 Admission Date: 03/05/20 Accepting Facility: [facility] Resuscitation Status: Do Not Resuscitate - Transfer Diagnosis (1) NSTEMI (non-ST elevated myocardial infarction) Is this a current diagnosis for this admission?: Yes (2) Diabetic ulcer of ankle Is this a current diagnosis for this admission?: Yes (3) Cellulitis of left ankle Is this a current diagnosis for this admission?: Yes (4) Hyperglycemia due to type 2 diabetes mellitus Is this a current diagnosis for this admission?: Yes (5) Hypertension Is this a current diagnosis for this admission?: Yes (6) Ankle pain Is this a current diagnosis for this admission?: Yes (7) Hyponatremia Is this a current diagnosis for this admission?: Yes (8) Tobacco dependence due to cigarettes Is this a current diagnosis for this admission?: Yes (9) Alcohol dependence Is this a current diagnosis for this admission?: Yes (10) Malnutrition of mild degree Is this a current diagnosis for this admission?: Yes (11) Noncompliance Is this a current diagnosis for this admission?: Yes (12) Abdominal aortic aneurysm Is this a current diagnosis for this admission?: Yes (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 The estimated ejection fraction is only 30 to 35% with normal diastolic function. Moderate global hypokinesis of the left ventricle. - Transfer Medications Home Medications: Acetaminophen [Acetaminophen Extra Strength] 500 mg PO DAILYP PRN 03/01/20 Transfer Medications: Current Medications Acetaminophen (Tylenol 325 Mg Tablet) 325 mg PO Q4HP PRN PRN Reason: FOR PAIN OR TEMP Stop: 03/31/20 16:16 Al Hydrox/Mg Hydrox/Simethicone (Maalox Plus Susp 30 Udcup) 30 ml PO Q6HP PRN PRN Reason: HEARTBURN Stop: 03/31/20 16:16 Albuterol/Ipratropium (Duoneb 3 Ml Ampul) 3 ml NEB RTQ4HP PRN PRN Reason: SHORTNESS OF BREATH Stop: 03/31/20 16:16 Last Admin: 03/04/20 22:58 Dose: 3 ml Documented by: Aspirin (Ecotrin 81 Mg Ec Tablet) 81 mg PO QHS TEA Stop: 03/31/20 21:59 Last Admin: 03/04/20 21:55 Dose: 81 mg Documented by: Atorvastatin Calcium (Lipitor 80 Mg Tablet) 80 mg PO QHS [facility] Stop: 04/04/20 21:59 Dextrose (Dextrose Inj 50% Syringe (25 Gm/50 Ml)) 12.5 gm IV PRN PRN; Protocol PRN Reason: FOR BG 50-69 IN ALERT PATIENT Stop: 03/31/20 16:29 Dextrose (Dextrose Inj 50% Syringe (25 Gm/50 Ml)) 25 gm IV PRN PRN; Protocol PRN Reason: PER PROTOCOL Stop: 03/31/20 16:29 Docusate Sodium (Colace 100 Mg Capsule) 100 mg PO BID [facility] Stop: 03/31/20 17:59 Last Admin: 03/05/20 09:17 Dose: 100 mg Documented by: Famotidine (Pepcid 20 Mg Tablet) 20 mg PO Q12 TEA Stop: 03/31/20 21:59 Last Admin: 03/05/20 09:17 Dose: 20 mg Documented by: Folic Acid (Folvite 1 Mg Tablet) 1 mg PO DAILY [facility] Stop: 04/02/20 09:59 Last Admin: 03/05/20 09:16 Dose: 1 mg Documented by: Furosemide (Lasix Inj/Pf 40 Mg/4 Ml Sdv) 40 mg IV Q12 [facility] Stop: 04/04/20 09:59 Last Admin: 03/05/20 10:01 Dose: 40 mg Documented by: Glucagon (Glucagen Inj 1 Mg Vial) 1 mg IM PRN PRN; Protocol PRN Reason: Evaluate for BG < 70 Stop: 03/31/20 16:29 Glucose (Glutose 40% Gel 15 Gm Tube) 15 gm PO PRN PRN; Protocol PRN Reason: FOR BG 50-69 IN ALERT PATIENT Stop: 03/31/20 16:29 Glucose (Glutose 40% Gel 15 Gm Tube) 30 gm PO PRN PRN; Protocol PRN Reason: FOR BG < 50 IN ALERT PATIENT Stop: 03/31/20 16:29 Heparin Sodium (Porcine) (Heparin Inj 1,000 Unit/Ml 10 Ml Vial) 0 - 12,000 unit IV .BOLUS PER PROTOCOL PRN; Protocol PRN Reason: RESPOND TO aPTT VALUE Stop: 04/04/20 15:36 Sodium Chloride (Nacl 0.9% 1000 Ml Iv Soln) 1,000 mls @ 125 mls/hr IV CONTINUOUS PRN PRN Reason: THIS MED IS NOT "PRN" Stop: 03/31/20 16:16 Last Admin: 03/05/20 04:05 Dose: 125 mls/hr Documented by: Cefazolin Sodium/Dextrose (Ancef Rtu 1 Gm/D5w 50 Ml Premix Bag) 1 gm in 50 mls @ 100 mls/hr IV Q6 [facility] Stop: 03/11/20 00:00 Last Infusion: 03/05/20 12:10 Dose: Infused Documented by: Heparin Sodium/Dextrose (Heparin Rtu 25,000 Unit/250 Ml D5w Premix) 25,000 unit in 250 mls @ 0 mls/hr IV CONTINUOUS PRN; Protocol PRN Reason: THIS MED IS NOT "PRN" Stop: 04/04/20 12:35 Magnesium Sulfate/Dextrose (Magnesium Sulfate Rtu-D5w 1 Gm/100 Ml Premix) 1 gm in 100 mls @ 100 mls/hr IV NOW ONE Stop: 03/05/20 14:29 Insulin Glargine (Lantus Insulin 100 Unit/1 Ml 10 Ml) 6 unit SUBCUT QHS [facility] Stop: 04/03/20 21:59 Last Admin: 03/04/20 21:56 Dose: 6 unit Documented by: Insulin Human Regular (Humulin R (Pyxis) Insulin 100 Unit/Ml 3ml) 0 - 12 unit SUBCUT ACHS [facility]; Protocol Stop: 03/31/20 21:59 Last Admin: 03/05/20 11:40 Dose: 8 unit Documented by: Lisinopril (Prinivil 5 Mg Tablet) 5 mg PO DAILY [facility] Stop: 04/01/20 09:59 Last Admin: 03/05/20 09:17 Dose: 5 mg Documented by: Lorazepam (Ativan Inj 2 Mg/1 Ml Vial) 2 mg IV Q4HP PRN PRN Reason: ANXIETY/AGITATION Stop: 03/08/20 17:04 Magnesium Hydroxide (Milk Of Magnesia 30 Ml Udcup) 30 ml PO HSP PRN PRN Reason: FOR CONSTIPATION Stop: 03/31/20 16:16 Magnesium Oxide (Mag-Ox 400 Mg Tablet) 400 mg PO BID [facility] Stop: 04/01/20 17:59 Last Admin: 03/05/20 09:16 Dose: 400 mg Documented by: Metformin HCl (Glucophage 500 Mg Tablet) 500 mg PO BIDACBS [facility] Stop: 04/03/20 08:59 Last Admin: 03/05/20 08:05 Dose: 500 mg Documented by: Metoprolol Tartrate (Lopressor Inj/Pf 5 Mg/5 Ml Sdv) 5 mg IV Q4HP PRN PRN Reason: Give For Sbp > 160 / Dbp > 100 Stop: 04/03/20 03:19 Morphine Sulfate (Morphine 10 Mg/Ml Inj) 2 mg IV Q2HP PRN PRN Reason: FOR PAIN SCALE 1-2 Stop: 03/11/20 03:17 Morphine Sulfate (Morphine 10 Mg/Ml Inj) 3 mg IV Q2HP PRN PRN Reason: FOR PAIN SCALE 3-4 Stop: 03/11/20 03:17 Morphine Sulfate (Morphine 10 Mg/Ml Inj) 4 mg IV Q2HP PRN PRN Reason: PAIN SCALE OF 5 Stop: 03/11/20 03:17 Last Admin: 03/05/20 06:54 Dose: 4 mg Documented by: Multivitamins/Iron (Flintstones Chewable Multivit W/Fe Tab) 2 tab PO DAILY [facility] Stop: 04/02/20 09:59 Last Admin: 03/05/20 09:17 Dose: 2 tab Documented by: Nicotine (Nicoderm 21 Mg/24 Hr Transderm Patch) 1 each TD DAILYP PRN PRN Reason: WITHDRAWAL SYMPTOMS Stop: 03/31/20 17:04 Nitroglycerin (Nitrostat 0.4 Mg (1/150 Gr) Tabs 25/Bottle) 1 tab SL Q5MP PRN PRN Reason: FOR CHEST PAIN Stop: 04/03/20 13:26 Oxycodone/Acetaminophen (Percocet 5-325 Mg Tablet) 1 tab PO Q6HP PRN PRN Reason: FOR PAIN SCALE 3-5 Stop: 03/08/20 16:16 Last Admin: 03/05/20 05:37 Dose: 1 tab Documented by: Potassium Chloride (Klor-Con 10 Meq Tablet Er) 20 meq PO DAILY TEA Stop: 04/03/20 09:59 Last Admin: 03/05/20 09:17 Dose: 20 meq Documented by: Promethazine HCl (Phenergan 25 Mg Tablet) 12.5 mg PO Q4HP PRN PRN Reason: FOR NAUSEA/VOMITING Stop: 03/31/20 16:16 Sodium Chloride (Saline Flush 2.5 Ml Monoject Prefil Syrin) 2.5 ml IV Q8 [facility] Stop: 03/31/20 21:59 Last Admin: 03/05/20 05:21 Dose: Not Given Documented by: Thiamine HCl (Thiamine 100 Mg Tablet) 100 mg PO QPM [facility] Stop: 04/01/20 17:59 Last Admin: 03/04/20 17:48 Dose: 100 mg Documented by: Zinc Sulfate (Zinc-220 Capsule) 220 mg PO QPM [facility] Stop: 04/01/20 17:59 Last Admin: 03/04/20 17:47 Dose: 220 mg Documented by: - Allergies Allergies/Adverse Reactions: No Known Allergies Allergy (Unverified 06/21/14 06:12) - Diet/Activity Discharge Diet: Cardiac, Diabetic Discharge Activity: Balance Activity w/Rest Hospital Course Hospital Course: - Diagnosis (1) NSTEMI (non-ST elevated myocardial infarction) Is this a current diagnosis for this admission?: Yes Plan: 03/04/2020 Patient had chest pain earlier this morning. The chief medical director obtain an EKG and ordered serial labs. His first troponin was positive. Cardiology is seen the patient. His troponin peaked at 0.156 and is now trending downward at 0.931. No further troponins will be ordered. Will be having an echocardiogram as part of the evaluation by cardiology. He has known diffuse severe systemic atherosclerosis and would be extremely poor candidate for any surgical intervention. He will be placed on therapeutic Lovenox in addition to his other medications. 03/05/2020 Per discussion with the oxide furnace tender Dr. Dougherty, who spoke with the boiler room operator at [facility] Dr. Arciniega, the patient will be transferred to [facility] for further evaluation and treatment. He is currently pain-free at this time. (2) Diabetic ulcer of ankle Is this a current diagnosis for this admission?: Yes Plan: 03/01/2020 Patient on his diabetes was not seen a physician in 15 years per his report. He has a very foul-smelling ulcer on the left lateral malleolus. X-rays were taken and there were no gross changes in the cortex. His sed rate and CRP are elevated. Is it makes a difference in the treatment plan, especially length of treatment with antibiotics, we may need to obtain an MRI. His toes are cold and there could be an arterial component to this and so I have ordered Doppler studies of his arterial circulation in his legs. For now we will do saline wet-to-dry dressings until the patient is evaluated by surgery. 03/02/[address] Barksdale intervention with debridement. Report states that there was granulation tissue under the eschar. We will continue aggressive wound care and consider referral to the wound care center as an outpatient. Arterial Doppler studies of the legs show significant disease below the popliteal artery bilaterally. There is likely an arterial component to the ulcer as well. 03/03/2020 Continue current treatment plan. We will arrange for outpatient treatment at the wound care center. 03/04/2020 Continue antibiotics and dressing changes 03/05/2020 Continue antibiotics and wound care (3) Cellulitis of left ankle Is this a current diagnosis for this admission?: Yes Plan: 03/01/2020 Day specimen was sent to the microbiology lab. Zosyn was initiated due to its broad-spectrum coverage. We will continue to monitor. The patient's white blood cell count was not elevated and this ulcer has most likely been there for many months. 03/02/2020 The wound culture is growing group B beta-hemolytic strep. This is usually sensitive to penicillin class antibiotics. He did have one blood culture bottle that was positive for coagulase-negative staph. This is likely a contaminant. If there are no other new culture results tomorrow I will change his antibiotic therapy to a penicillin-based agent. 03/03/2020 DC Zosyn. 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 He states that he stopped all his medications many years ago. Because of reports in the news about adverse effects of different medications he wants to try and treat things without the use of prescription drugs. His glucose on admission was 353. I have ordered a hemoglobin A1c for the morning. I have started him on metformin as well as sliding scale coverage with meals time and bedtime Accu-Cheks. 03/02/2020 The sugars are responding to metformin and insulin sliding scale. I will try and construct a regimen of oral agents as I do not believe he will be able to manage insulin therapy at home. 03/03/2020 Continue current treatment plan 03/04/2020 Was trying to construct a treatment plan for his diabetes that would involve only oral medications. That is very difficult and therefore I am starting him on Lantus as well as his sliding scale. I have started him on metformin as well. If possible I would like to work him back to oral medications only. 03/05/2020 The low-dose Lantus is not enough. We will begin to increase the Lantus. A slow increase is planned to avoid hypoglycemia. (5) Hypertension Qualifiers: Hypertension type: essential hypertension Qualified Code(s): I10 - Essential (primary) hypertension Is this a current diagnosis for this admission?: Yes Plan: 03/01/2020 I have started low-dose lisinopril considering his blood pressure with his underlying diabetes. Continue to monitor vital signs. 03/02/2020 Blood pressure is improved. I will give the lisinopril more time before adding additional agents or changing the dose. 03/03/2020 No changes today. Continue to monitor. 03/04/2020 Excellent blood pressure control continue current regimen 03/05/2020 As above (6) Ankle pain Qualifiers: Chronicity: chronic Is this a current diagnosis for this admission?: Yes Plan: 03/01/2020 He states that the pain is been there for some time. This is consistent with having the ulcer and infection. He states that he will get an achy shooting pain that resolves within minutes. This is sporadic. Pain has affected his ability to walk. Nonnarcotic and narcotic analgesia has been ordered. 03/02/2020 Still having pain today but he did have surgical debridement. Based on his presentation tomorrow I will initiate physical therapy. 03/03/2020 Still present. I have ordered physical therapy for tomorrow. 03/04/2020 PRN medications available. Patient is now working with physical therapy. Movement may help some of the discomfort. 03/05/2020 Continue as needed analgesia. (7) Hyponatremia Is this a current diagnosis for this admission?: Yes Plan: 03/01/2020 Serum sodium is just below the lower limit normal. Will monitor at this time. This is clinically insignificant currently. 03/02/2020 Still with mildly decreased serum sodium. We will continue to monitor. 03/03/2020 Likely related to alcoholism as well as recent hyperglycemia. Sodium is stable. No change in plans. (8) Tobacco dependence due to cigarettes Is this a current diagnosis for this admission?: Yes Plan: 03/01/2020 The patient still smokes up to 1 pack of cigarettes daily. A nicotine patch will be made available. 03/02/2020 No evidence of nicotine withdrawal (9) Alcohol dependence Qualifiers: Substance use status: uncomplicated Qualified Code(s): F10.20 - Alcohol dependence, uncomplicated Is this a current diagnosis for this admission?: Yes Plan: 03/01/2020 He has a history of severe alcoholism drinking as much as 1/5 of alcohol a day. Currently he states that he does not drink every day but on some days he will drink up to one half a pint of spirits. His toxicology screen was negative for alcohol at the time of this admission. 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 We will continue to interact with the patient's family introduced a Mini-Mental status exam to see how he performs. 03/03/2020 Continue current regimen. No evidence of withdrawal at this time 03/04/2020 Evidently patient is a little anxious. This settled with benzodiazepines. 03/05/2020 No evidence of any withdrawal today. (10) Malnutrition of mild degree Is this a current diagnosis for this admission?: Yes Plan: 03/01/2020 It is difficult to assess the timeframe due to his poor memory. He states that before last [place] he was over 250 pounds. His BMI is down to 18 he admits very poor appetite. He exhibits obvious decreased muscle mass and reports weakness and fatigue. I have asked for a dietitian consult 03/02/2020 Please see the registered dietitian note. The patient actually qualifies for moderate degree malnutrition based on the dietitians deeper investigation. Multiple supplements have been added for wound healing and with regard to his alcoholism. In addition protein supplements have been added to his meal trays. Continue daily weights. 03/03/2020 Continue new regimen (11) Noncompliance Is this a current diagnosis for this admission?: Yes Plan: 03/01/2020 Long history of not seeing any physicians. He stopped taking his medications in the past. He asked if there is a way that he could see the doctor and then just keep getting his medications from the drugstore. He also wants to try and treat all of his comorbidities without prescriptions. I told him that this is not going to be possible. 03/02/2020 I had a long discussion with his designated contact who is his cousin Cheryle. She is in [place]. It is too early but we did discuss possibilities of discharge planning. The patient would likely benefit from jail especially with his wound care. He has been a unable to take care of himself at home. His medication regimen will likely be difficult for him to manage especially with his history of noncompliance. We will need to construct a regimen that is straightforward and consisting of oral medications. Whether or not he will take them this is different story. (12) Abdominal aortic aneurysm Qualifiers: Presence of rupture: without rupture Qualified Code(s): I71.4 - Abdominal aortic aneurysm, without rupture Is this a current diagnosis for this admission?: Yes Plan: 03/02/2020 The patient's unruptured infrarenal abdominal aortic aneurysm has grown to 6 x 6 cm. This is up from 5 x 5 cm in 2010. Will control with aspirin, statin and antihypertensive therapy. Ideally imaging studies to monitor would be appropriate however the patient's noncompliant issues will make this difficult. 03/04/[address] Dougherty who spoke to the vascular surgeon at [facility] will be transferring the patient. 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 Slightly bigger than in 2009. Treatment plan as above. 03/05/2020 As noted above the patient is being transferred to [facility] for further evaluation and management (14) Peripheral arterial disease Doppler studies were performed. Bilateral infrapopliteal disease was noted. Today the patient's distal portion of the left foot is slightly dusky and cool but not cold to the touch. The patient was on therapeutic Lovenox therapy for his NSTEMI. I have changed this to continuous heparin infusion. Physical Exam Vital Signs: Temp Pulse Resp BP Pulse Ox 98.0 F 82 16 112/82 100 03/04/20 23:54 03/05/20 02:00 03/04/20 23:54 03/04/20 23:54 03/05/20 04:28 Intake & Output 03/04/20 03/05/20 03/06/20 06:59 06:59 06:59 Intake Total 3372 2486 50 Output Total 450 Balance 3372 6 50 Weight 70.1 kg 70 kg General appearance: PRESENT: no acute distress, cooperative, thin Head exam: PRESENT: atraumatic, normocephalic Eye exam: PRESENT: conjunctiva pink. ABSENT: scleral icterus Ear exam: PRESENT: normal external ear exam. ABSENT: bleeding, drainage Mouth exam: PRESENT: moist, tongue midline Respiratory exam: PRESENT: clear to auscultation sameer, symmetrical, unlabored. ABSENT: rales, rhonchi, tachypnea, wheezes Cardiovascular exam: PRESENT: RRR, +S1, +S2. ABSENT: diastolic murmur, irregular rhythm, systolic murmur GI/Abdominal exam: PRESENT: normal bowel sounds, soft, other - Pulsatile mass. ABSENT: distended, tenderness Rectal exam: PRESENT: deferred Gentrourinary exam: ABSENT: indwelling catheter Extremities exam: PRESENT: pedal edema - Left foot, other - The left foot is dusky. It is slightly cooler than the skin temperature on the leg. It is slig htly edematous. The patient is not having any acute pain in the foot. His left ankle is bandaged from the ulcer. He states that he has discomfort in the ankle area more so than the foot. Difficult to palpate a dorsalis pedis pulse due to the edema and peripheral arterial disease Musculoskeletal exam: PRESENT: ambulatory - Currently working with physical therapy Neurological exam: PRESENT: alert, awake, oriented to person, oriented to place, oriented to situation, CN II-XII grossly intact Psychiatric exam: PRESENT: flat affect. ABSENT: agitated, anxious Focused psych exam: ABSENT: delusional, paranoid, restlessness Skin exam: PRESENT: cyanosis - Dusky discoloration distal left foot as noted above Results Laboratory Results: 03/05/20 06:36 03/05/20 06:36 03/04/20 03/05/20 03/05/20 22:50 06:36 06:36 WBC 6.6 RBC 3.66 L Hgb 11.8 L Hct 33.8 L MCV 93 MCH 32.2 MCHC 34.8 RDW 12.8 Plt Count 151 Seg Neutrophils % 65.5 Sodium 135.1 L Potassium 4.0 Chloride 97 L Carbon Dioxide 35 H Anion Gap 3 L BUN 16 Creatinine 0.68 Est GFR ( Amer) > 60 Glucose 265 H Calcium 8.2 L Magnesium 1.5 L Urine Color YELLOW Urine Appearance CLEAR Urine pH 6.0 Ur Specific [place] 1.021 Urine Protein 30 H Urine Glucose (UA) >=500 H Urine Ketones NEGATIVE Urine Blood NEGATIVE Urine Nitrite NEGATIVE Ur Leukocyte Esterase NEGATIVE Urine WBC (Auto) 0 03/01/20 11:46 Ankle - Diabetic Ulcer Gram Stain - Final 03/01/20 11:46 Ankle - Diabetic Ulcer Wound Culture - Final Enterococcus Faecalis(Group D) Group B Beta Streptococcus Anaerococcus (Peptostrep) Sp. Prevotella Species 03/01/20 11:46 Blood Blood Culture (PCR) - Final Staphylococcus Species 03/01/20 11:46 Blood Blood Culture - Final Staphylococcus Hominis 03/04/20 03/04/20 03/04/20 03:35 03:35 10:50 Creatine Kinase 32 L 32 L CK-MB (CK-2) 1.74 Troponin I 0.055 03/04/20 03/04/20 03/04/20 10:50 14:35 14:35 Creatine Kinase 30 L CK-MB (CK-2) 2.40 2.48 Troponin I 0.156 0.131 03/04/20 03/04/20 03/05/20 20:09 20:09 01:46 Creatine Kinase 32 L 30 L CK-MB (CK-2) 2.18 Troponin I 0.098 03/05/20 01:46 Creatine Kinase CK-MB (CK-2) 2.00 Troponin I 0.129 Impressions: Chest X-Ray 03/01/20 11:39 IMPRESSION: NO ACUTE RADIOGRAPHIC FINDING IN THE CHEST. Ankle X-Ray 03/01/20 11:41 IMPRESSION: Soft tissue ulcer. No conventional radiographic evidence of osteomyelitis. Lower Extremity Ultrasound 03/01/20 17:00 IMPRESSION: Bilateral infrapopliteal disease Abdomen/Pelvis CT 03/02/20 00:00 IMPRESSION: Unruptured 6.2 x 6.1 cm infrarenal abdominal aortic aneurysm with questionable enhancement of mural thrombus. Plan Discharge Plan: The patient had a non-ST elevation myocardial infarction yesterday. He is currently stable. In light of his reduced ejection fraction by echocardiogram (30 to 35%) he will need cardiac catheterization. He does have significant atherosclerosis with: Peripheral arterial disease-significant infrapopliteal disease bilaterally h owever the ulcer on the lateral left malleolus is most likely arterial in the distal foot is slightly mottled and cool but not cold. Abdominal aortic aneurysm-this is up to 6 cm at this time. Bilateral iliac artery aneurysms-these are slightly larger than in the past as well. (3 cm on the right, 2 cm on the left) Dr. Dougherty spoke to the vascular surgeon at [facility] (Dr. Broussard) as well as the boiler room operator Dr. Arciniega. They would like the patient transferred to [facility] on the hospitalist service for further evaluation and treatment. The reasons for transfer were explained to the patient by Dr. Dougherty as well as myself. He understands the need to evaluate these issues at a higher level of care to avoid loss of limb and life. Time Spent: Greater than 30 Minutes
[2020-03-05 13:30] VITALS: BP 123/60
[2020-03-05] MEDS ORDERED: MAGNESIUM SULFATE/D5W 1 GM/100 ML RTUPB IV ONE (13:30)
[2020-03-05 13:48] LABS: INTERNATIONAL RATION (INR) 1.19; PROTHROMBIN TIME 15.2 SEC (11.4-15.4)
[2020-03-05 13:49] LABS: PARTIAL THROMBOPLASTIN TIME 39.3 SEC (23.5-35.8)
[2020-03-05] MEDS ORDERED: HEPARIN SOD (PORCINE) 1,000 UNIT/ML 10 ML VIAL IV PRN (15:37)
[2020-03-05] MEDS ORDERED: ATORVASTATIN CALCIUM 80 MG TABLET PO SCH (22:00)
== END 2020-03-05 16:30 | disposition short-term general hospital (02) | DRG 637 ==
LOC: ER 11:00 → EH 15:42 → 4S 18:03
PROVIDERS: ADMIT Hospitalist; ATTEND Hospitalist
DX: E11.622 Type 2 diabetes mellitus with other skin ulcer (principal); I21.4 Non-ST elevation (NSTEMI) myocardial infarction; L97.329 Non-pressure chronic ulcer of left ankle with unspecified severity; L03.116 Cellulitis of left lower limb; E87.1 Hypo-osmolality and hyponatremia; E44.1 Mild protein-calorie malnutrition; Z68.1 Body mass index [BMI] 19.9 or less, adult; I43 Cardiomyopathy in diseases classified elsewhere; E11.51 Type 2 diabetes mellitus with diabetic peripheral angiopathy without gangrene; E11.65 Type 2 diabetes mellitus with hyperglycemia; M19.90 Unspecified osteoarthritis, unspecified site; F10.20 Alcohol dependence, uncomplicated; F17.210 Nicotine dependence, cigarettes, uncomplicated; T50.916A Underdosing of multiple unspecified drugs, medicaments and biological substances, initial encounter; Z91.128 Patient's intentional underdosing of medication regimen for other reason; B95.4 Other streptococcus as the cause of diseases classified elsewhere; I71.4 Abdominal aortic aneurysm, without rupture; I70.90 Unspecified atherosclerosis; I72.3 Aneurysm of iliac artery; I11.0 Hypertensive heart disease with heart failure; I50.9 Heart failure, unspecified; Z66 Do not resuscitate; R46.0 Very low level of personal hygiene; I25.2 Old myocardial infarction; B95.2 Enterococcus as the cause of diseases classified elsewhere; B95.1 Streptococcus, group B, as the cause of diseases classified elsewhere; Z85.118 Personal history of other malignant neoplasm of bronchus and lung
CPT/HCPCS: 36415; 36600; 71046; 74177; 80048; 80053; 80307; 81001; 82550; 82553; 82607; 82728; 82746; 82803; 82962; 83036; 83540; 83550; 83605; 83735; 84100; 84134; 84466; 84484; 85025; 85045; 85610; 85652; 85730; 86140; 87040; 87070; 87075; 87077; 87150; 87186; 87205; 93005; 93010; 93306; 93925; 94660; 96365; 99285; J0690; J1644; J1650; J1815; J1940; J2060; J2270; J2543; J3475; J3480; J3490; J7030; J7050; J7620

== ENCOUNTER 2020-03-25 21:35 | Inpatient (IN) | payer MEDICARE, OTHER ==
[2020-03-25] MEDS ORDERED: NITROGLYCERIN/D5W 50 MG/250 ML RTUINJ IV ONE (21:44)
[2020-03-25] MEDS ORDERED: METHYLPREDNISOLONE INJ 125 MG/2 ML SDV IV ONE (21:50)
--- NOTE | 2020-03-25 21:53 | ER Document Report ---
ED General - General Chief Complaint: Respiratory Distress Stated Complaint: RESPIRATORY DISTRESS Time Seen by Provider: 03/25/20 21:43 Mode of Arrival: Medic Information source: Emergency Med Personnel Cannot obtain history due to: Altered mental status Notes: 84-year-old male brought in by EMS from [facility] for shortness of breath. Patient was only transferred there within the past several days after discharge from [facility]. Patient has a history of both COPD and CHF per EMS, he is currently in the custodial facility partially because osteomyelitis of the left ankle. When EMS arrived patient was quite short of breath, hypoxic, oxygen saturation was in the 70s or below. Patient was given albuterol breathing treatment as well as 1 squirt of sublingual nitroglycerin via EMS and placed on BiPAP. He responded relatively well to this. EMS states that initially he had almost completely absent breath sounds. No other history was given by [facility], unknown if he has had a fever or how long the shortness of breath has been going on. - Related Data Allergies/Adverse Reactions: No Known Allergies Allergy (Unverified 06/21/14 06:12) Past Medical History - General Information source: Emergency Med Personnel Cannot obtain history due to: Altered mental status - Social History Smoking Status: Former Smoker Family History: DM, Malignancy, Other - Kidney failure - Past Medical History Cardiac Medical History: Reports: Hx Heart Attack, Hx Hypertension Pulmonary Medical History: Reports: Hx COPD Endocrine Medical History: Reports: Hx Diabetes Mellitus Type 2. Denies: Hx Hypothyroidism Renal/ Medical History: Reports: Hx Kidney Stones Malignancy Medical History: Reports Hx Lung Cancer Musculoskeletal Medical History: Reports Hx Arthritis Psychiatric Medical History: Denies: Hx Depression Past Surgical History: Reports: Hx Thyroid Surgery, Other - He reports an o peration on his throat but does not know what it was - Immunizations Hx Diphtheria, Pertussis, Tetanus Vaccination: Yes Review of Systems - Review of Systems -: Yes ROS unobtainable due to patient's medical condition Physical Exam - Vital signs Vitals: Resp Pulse Ox 38 H 97 03/25/20 21:35 03/25/20 21:35 Interpretation: Hypertensive, Hypoxic - Notes Notes: GENERAL: On EMS stretcher, on CPAP, appears acutely short of breath, does not answer questions, occasionally grunts, does not attempt to talk. Eyes are closed HEAD: Normocephalic, atraumatic EYES: Pupils equal, round and reactive to light. ENT: Oral mucosa dry, tongue midline. NECK: trachea midline. LUNGS: Rhonchi in the left lower lobe, wheezing and rales that were reported by EMS have now cleared, patient is quite tachypneic, still appears short of breath, on CPAP from EMS. HEART: Regular rate and rhythm, no murmurs, gallops, rubs. ABDOMEN: Soft, appears mildly tender to palpation periumbilically, no guarding, no rigidity, no rebounding, nondistended, bowel sounds present in all 4 quadrants. EXTREMITIES: Left ankle has an ulcer consistent with his history of infected decubitus ulcer, it is oozing a small amount of bright red blood, no edema, no cyanosis, both feet are warm however I cannot palpate pulses on either foot. This is unchanged from prior records in the computer. Patient has known severe PAD and PVD. NEUROLOGICAL: Eyes are closed, appears to be in pain when being moved and will open eyes to pain, does not follow commands, does not fight exam. No facial droop. SKIN: Decubitus ulcer to the left lateral malleolus, small amount of bright red blood. Betadine across the left foot. Course - Re-evaluation Re-evalutation: 03/26/20 00:24 CBC does show leukocytosis, hemoglobin is low at 10.4, INR is somewhat prolonged at 1.23, arterial blood gas shows respiratory acidosis with some metabolic compensation, appears to be acute on chronic, pH 7.25, PCO2 is 85.1, oxygenating appropriately with a PO2 of 202.2, chemistries show slight low sodium which is likely pseudohyponatremia with a sodium of 134.44 but a glucose of 416. Lactic acid is normal, cardiac enzymes are negative, urinalysis shows glucose but no signs of infection. Chest x-ray shows mild interstitial edema but radiology feels this is more chronic than acute. EKG is not ischemic. On arrival patient was in quite a bit of respiratory distress and had marked hypertension. Patient received albuterol and nitroglycerin from EMS, received Solu-Medrol here, patient was transitioned from CPAP to BiPAP at 15/5 and 70% FiO2, patient was actually quite rapidly able to be transitioned down to 50% FiO2. I did initially wish to start a nitro drip as the report from EMS sounded like the patient may have been going into flash pulmonary edema, the patient's blood pressure lowered very quickly on its own and the patient did not end up requiring the nitroglycerin drip. Patient in fact became somewhat hypotensive after being put on the BiPAP. Patient was given a 250 mL bolus of normal saline, and his BiPAP was changed from 15/5 down to 14/5, with this the patient's blood pressure has normalized, currently it is 136/60. Patient is much more alert, he is talking and states that he thought he was going to , s tates he feels much better now. Denies any pain. Of note patient is a DNR. Discussed case with Dr. Goldman, he agrees to accept the patient to his service on the [facility]. Asks that I do order a CT angiogram of the chest on this patient. No evidence of sepsis at this time. No indication for additional antibiotics in addition to his osteomyelitis of the left lateral malleolus that has been underg oing treatment for at least the past month. - Vital Signs Vital signs: Temp Pulse Resp BP Pulse Ox 98.0 F 19 133/75 H 100 03/25/20 21:36 03/26/20 02:01 03/26/20 02:01 03/26/20 00:44 - Laboratory Result Diagrams: 03/25/20 21:45 03/25/20 21:45 Laboratory results interpreted by me: 03/25/20 03/25/20 03/25/20 21:45 21:45 21:45 WBC 17.9 H RBC 3.34 L Hgb 10.4 L Hct 31.7 L Absolute Neuts (auto) 12.8 H PT 15.5 H Carbonic Acid ABG pH ABG pCO2 ABG pO2 ABG HCO3 ABG Total CO2 ABG O2 Saturation Sodium 134.4 L Chloride 94 L Carbon Dioxide 34 H BUN 21 H Glucose 416 H* Alkaline Phosphatase 182 H Creatine Kinase 39 L NT-Pro-B Natriuret Pep Albumin 3.4 L Urine Protein Urine Glucose (UA) Urine Blood Urine Urobilinogen 03/25/20 03/25/20 03/25/20 21:45 21:45 22:25 WBC RBC Hgb Hct Absolute Neuts (auto) PT Carbonic Acid 2.56 H ABG pH 7.25 L ABG pCO2 85.1 H* ABG pO2 202.2 H ABG HCO3 36.8 H ABG Total CO2 39.4 H ABG O2 Saturation 99.1 H Sodium Chloride Carbon Dioxide BUN Glucose Alkaline Phosphatase Creatine Kinase NT-Pro-B Natriuret Pep 2270 H Albumin Urine Protein 100 H Urine Glucose (UA) >=500 H Urine Blood SMALL H Urine Urobilinogen 2.0 H - EKG Interpretation by Me Additional EKG results interpreted by me: 03/25/20 22:08 EKG shows sinus tachycardia at a rate of 103, slight left axis deviation, stroke interventricular conduction delay, borderline prolonged QT interval, T wave inversions in 1, aVL, V5 and V6, no ST segment elevations, there are ST segment depressions noted in V3 through V6 per my interpretation. Critical Care Note - Critical Care Note Total time excluding time spent on procedures (mins): 40 Discharge - Discharge Clinical Impression: Diabetic ulcer of ankle, Acute and chronic respiratory failure with hypercapnia, Heart failure with reduced ejection fraction Hyperglycemia due to type 2 diabetes mellitus Qualifiers: Diabetes mellitus retirement insulin use: with technician terminal and repeater use Qualified Code(s): E11.65 - Type 2 diabetes mellitus with hyperglycemia Condition: Fair Disposition: ADMITTED INPATIENT Admitting Provider: Jones (Hospitalist) Unit Admitted: [facility]
[2020-03-25] MEDS ORDERED: FUROSEMIDE INJ/PF 40 MG/4 ML SDV IV ONE (22:00)
[2020-03-25] MEDS ORDERED: NITROGLYCERIN/D5W 50 MG/250 ML RTUINJ IV PRN (22:04)
[2020-03-25 22:16] LABS: ABSOLUTE BASOPHILS # (AUTO) 0.1 10^3/uL (0.0-0.2); ABSOLUTE EOSINOPHILS # (AUTO) 0.2 10^3/uL (0.0-0.6); ABSOLUTE LYMPHOCYTES (AUTO) 3.6 10^3/uL (0.5-4.7); ABSOLUTE MONOCYTES (AUTO) 1.2 10^3/uL (0.1-1.4); ABSOLUTE NEUT (AUTO) 12.8 10^3/uL (1.7-8.2); BASOPHILS % (AUTO) 0.5 % (0-2); EOSINOPHILS % (AUTO) 1.1 % (0-6); HEMATOCRIT 31.7 % (37.9-51.0); HEMOGLOBIN 10.4 g/dL (13.5-17.0); LYMPHOCYTES % (AUTO) 20.2 % (13-45); MEAN CORPUSCULAR HEMOGLOBIN 31.1 pg (27.0-33.4); MEAN CORPUSCULAR HGB CONC 32.8 g/dL (32.0-36.0); MEAN CORPUSCULAR VOLUME 95 fl (80-97); MONOCYTES % (AUTO) 6.6 % (3-13); PLATELET COUNT 412 10^3/uL (150-450); RED BLOOD COUNT 3.34 10^6/uL (4.35-5.55); RED CELL DISTRIBUTION WIDTH 12.8 % (11.5-14.0); SEGMENTED NEUTROPHILS % (AUTO) 71.6 % (42-78); TOTAL CELLS COUNTED % (AUTO) 100 %; WHITE BLOOD COUNT 17.9 10^3/uL (4.0-10.5)
[2020-03-25 22:23] LABS: ARTERIAL BLOOD BASE EXCESS 6.5 mmol/L; ARTERIAL BLOOD H2CO3 2.56 mmol/L (1.05-1.35); ARTERIAL BLOOD HCO3 36.8 mmol/L (20-24); ARTERIAL BLOOD O2 SATURATION 99.1 % (94-98); ARTERIAL BLOOD PH 7.25 (7.35-7.45); ARTERIAL BLOOD PO2 202.2 mmHg (80-100); ARTERIAL BLOOD TOTAL CO2 39.4 mmol/L (23-27)
[2020-03-25 22:24] LABS: ARTERIAL BLOOD FIO2 60
[2020-03-25 22:25] LABS: INTERNATIONAL RATION (INR) 1.23; PROTHROMBIN TIME 15.5 SEC (11.4-15.4)
[2020-03-25 22:27] LABS: ARTERIAL BLOOD PCO2 85.1 mmHg (35-45)
[2020-03-25 22:35] LABS: ALBUMIN 3.4 g/dL (3.5-5.0); ALKALINE PHOSPHATASE 182 U/L (38-126); ANION GAP 6 (5-19); ASPARTATE AMINO TRANSFERASE 37 U/L (17-59); BILIRUBIN,DIRECT 0.2 mg/dL (0.0-0.4); BILIRUBIN,TOTAL 0.6 mg/dL (0.2-1.3); BLOOD UREA NITROGEN 21 mg/dL (7-20); CALCIUM 8.7 mg/dL (8.4-10.2); CARBON DIOXIDE 34 mmol/L (22-30); CHLORIDE 94 mmol/L (98-107); CREATINE KINASE 39 U/L (55-170); TOTAL PROTEIN 6.6 g/dL (6.3-8.2)
--- NOTE | 2020-03-25 22:45 | RADIOLOGY REPORT (SQ) ---
CHEST 1 VIEW on 03/25/2020 at 10:12 PM CLINICAL INDICATION: Shortness of breath, COPD COMPARISON: 03/20/2020 FINDINGS: Right-sided PICC line tip is in the SVC. Vascular calcification is noted in the aorta. Heart is within normal limits for size. Mild increased interstitial changes are likely all chronic in nature although cannot exclude minimal edema. Hilar and mediastinal contours are within normal limits. Chronic rib deformity of the right fifth rib is again noted. No acute bony abnormality is noted. IMPRESSION: No significant change in the appearance of the chest.
[2020-03-25 22:47] LABS: CREATINE KINASE MB 0.65 ng/mL (<4.55)
[2020-03-25 22:49] LABS: APPEARANCE,URINE CLEAR; BILIRUBIN,URINE NEGATIVE (NEGATIVE); COLOR,URINE YELLOW; GLUCOSE, URINE >=500 mg/dL (NEGATIVE); KETONES,URINE NEGATIVE (NEGATIVE); PROTEIN,URINE 100 mg/dL (NEGATIVE); URINE SPECIFIC GRAVITY 1.017
[2020-03-25 22:57] LABS: TROPONIN I < 0.012 ng/mL
[2020-03-25] MEDS ORDERED: NORMAL SALINE 1000 ML 250 ML IV ONE (23:06)
[2020-03-25 23:08] LABS: GLUCOSE 416 mg/dL (75-110)
[2020-03-26] MEDS ORDERED: MAG HYDROX/AL HYDROX/SIMETH SUSP 30 ML UDCUP PO PRN (00:22)
[2020-03-26] MEDS ORDERED: MAGNESIUM HYDROXIDE SUSP 30 ML UDCUP PO PRN (00:22)
[2020-03-26] MEDS ORDERED: LACTULOSE SYRUP 20 GM/30 ML UDCUP PO ONE (00:22)
[2020-03-26] MEDS ORDERED: NITROGLYCERIN 5 MG (0.2 MG/HR) PATCH.TD24 TD ONE (00:45)
[2020-03-26] MEDS ORDERED: INSULIN REG, HUMAN 100 UNIT/ML 3 ML VIAL (PYX) IV ONE (01:18)
[2020-03-26 04:47] LABS: ARTERIAL BLOOD BASE EXCESS 10.1 mmol/L; ARTERIAL BLOOD HCO3 36.5 mmol/L (20-24); ARTERIAL BLOOD O2 SATURATION 96.8 % (94-98); ARTERIAL BLOOD PCO2 59.9 mmHg (35-45); ARTERIAL BLOOD PO2 91.9 mmHg (80-100); ARTERIAL BLOOD TOTAL CO2 38.4 mmol/L (23-27)
[2020-03-26] MEDS ORDERED: HEPARIN SOD (PORCINE) 5,000 UNIT/ML 1 ML VIAL ONE (04:47)
[2020-03-26 04:48] LABS: ARTERIAL BLOOD FIO2 50%
[2020-03-26] MEDS ORDERED: IPRATROPIUM/ALBUTEROL 0.5-2.5 MG/3 ML AMPUL NEB PRN (04:55)
--- NOTE | 2020-03-26 04:55 | PDOC H&P ---
History of Present Illness Admission Date/PCP: 03/26/20 00:33 BRIANNA LEE MD Patient complains of: Shortness of breath History of Present Illness: JOHANA BOND is a 84 year old male who is a resident of [facility] with a history of COPD, congestive heart failure, coronary artery disease, insulin- dependent diabetes, osteomyelitis of left malleolus and profound physical deconditioning. Assisted living because EMS for respiratory distress and altered mental status. Via EMS he receives nitroglycerin, 100% oxygen, and brought to the emergency room for evaluation where he is found to have confusion and respiratory distress with pulse oximetry in the 70s., Hypercapnic respiratory failure with a PCO2 of 85, hyperglycemia and leukocytosis. He started on BiPAP, his mental status improved and referred to the hospitalist for admission. Patient is unable to provide any history though briefly arousable on BiPAP denying pain. He has ecchymosis to the left thigh and purulent drainage to the left lateral malleolus. CODE STATUS is verified by portable DNR document Past Medical History Cardiac Medical History: Reports: Congestive Heart Failure, Myocardial Infarction, Hypertension Pulmonary Medical History: Reports: Chronic Obstructive Pulmonary Disease (COPD) Endocrine Medical History: Reports: Diabetes Mellitus Type 2 Denies: Hypothyroidism Malignancy Medical History: Reports: Lung Cancer Musculoskeltal Medical History: Reports: Arthritis Psychiatric Medical History: Denies: Depression Hematology: Denies: Anemia, Bleeding Tendencies Infectious Medical History: Reports: Other Past Surgical History Past Surgical History: Reports: Other - He reports an operation on his throat but does not know what it was Social History Information Source: Emergency Med Personnel, [facility] Records Lives with: [facility] Smoking Status: Former Smoker Frequency of Alcohol Use: Heavy Hx Recreational Drug Use: No Drugs: None Hx Prescription Drug Abuse: No - Advance Directive Resuscitation Status: Do Not Resuscitate Family History Family History: DM, Malignancy, Other - Kidney failure Parental Family History Reviewed: No - Unobtainable Children Family History Reviewed: No - Unobtainable Sibling(s) Family History Reviewed.: No - Unobtainable Medication/Allergy Home Medications: Acetaminophen [Acetaminophen Extra Strength] 500 mg PO DAILYP PRN 03/01/20 Allergies/Adverse Reactions: No Known Allergies Allergy (Unverified 06/21/14 06:12) Review of Systems ROS unobtainable: Due to mental status Physical Exam Vital Signs: Temp Pulse Resp BP Pulse Ox 98.0 F 17 130/57 H 77 L 03/25/20 21:36 03/26/20 03:20 03/26/20 03:21 03/26/20 03:21 Intake & Output 03/24/20 03/25/20 03/26/20 11:59 11:59 11:59 Intake Total 253 Balance 253 Weight 77.9 kg General appearance: PRESENT: severe distress, well-developed. ABSENT: cooperative Head exam: PRESENT: atraumatic, normocephalic Eye exam: PRESENT: conjunctiva pink, EOMI, PERRLA. ABSENT: scleral icterus Ear exam: PRESENT: normal external ear exam Mouth exam: PRESENT: moist, tongue midline Neck exam: ABSENT: carotid bruit, JVD, lymphadenopathy, thyromegaly Respiratory exam: PRESENT: accessory muscle use, crackles, decreased breath sounds, prolonged expiratory phas, rales, tachypnea Cardiovascular exam: PRESENT: RRR. ABSENT: diastolic murmur, rubs, systolic murmur Pulses: PRESENT: normal dorsalis pedis pul Vascular exam: PRESENT: normal capillary refill GI/Abdominal exam: PRESENT: normal bowel sounds, soft. ABSENT: distended, guarding, mass, organolmegaly, rebound, tenderness Rectal exam: PRESENT: deferred Gentrourinary exam: PRESENT: ecchymosis - 8 x 8 cm left suprapubic area of ecchymosis. ABSENT: lesions, scrotal swelling, urethral discharge Extremities exam: PRESENT: tenderness - Left lateral malleolus 4 x 4 centimeter ulcer with purulent drainage Left lateral thigh with 2+ edema and 16 x 20 area of ecchymosis.. ABSENT: joint swelling, +1 edema Neurological exam: PRESENT: alert, CN II-XII grossly intact Psychiatric exam: PRESENT: unusual affect Skin exam: PRESENT: erythema - Left lateral malleolus 4 x 4 centimeter ulcer with purulent drainage Left lateral thigh with 2+ edema and 16 x 20 area of ecchymosis., other - Left lateral malleolus 4 x 4 centimeter ulcer with purulent drainage Left lateral thigh with 2+ edema and 16 x 20 area of ecchymosis.. ABSENT: intact Results Laboratory Results: 03/25/20 21:45 03/25/20 21:45 03/25/20 03/25/20 03/25/20 21:45 21:45 21:45 WBC 17.9 H RBC 3.34 L Hgb 10.4 L Hct 31.7 L MCV 95 MCH 31.1 MCHC 32.8 RDW 12.8 Plt Count 412 Seg Neutrophils % 71.6 Carbonic Acid HCO3/H2CO3 Ratio ABG pH ABG pCO2 ABG pO2 ABG HCO3 ABG O2 Saturation ABG Base Excess FiO2 Sodium 134.4 L Potassium 5.0 Chloride 94 L Carbon Dioxide 34 H Anion Gap 6 BUN 21 H Creatinine 0.88 Est GFR ( Amer) > 60 Glucose 416 H* Lactic Acid 1.1 Calcium 8.7 Total Bilirubin 0.6 AST 37 Alkaline Phosphatase 182 H Total Protein 6.6 Albumin 3.4 L Urine Color Urine Appearance Urine pH Ur Specific Leslie Urine Protein Urine Glucose (UA) Urine Ketones Urine Blood Urine RBC (Auto) 03/25/20 03/25/20 21:45 22:25 WBC RBC Hgb Hct MCV MCH MCHC RDW Plt Count Seg Neutrophils % Carbonic Acid 2.56 H HCO3/H2CO3 Ratio 14:1 ABG pH 7.25 L ABG pCO2 85.1 H* ABG pO2 202.2 H ABG HCO3 36.8 H ABG O2 Saturation 99.1 H ABG Base Excess 6.5 FiO2 60 Sodium Potassium Chloride Carbon Dioxide Anion Gap BUN Creatinine Est GFR ( Amer) Glucose Lactic Acid Calcium Total Bilirubin AST Alkaline Phosphatase Total Protein Albumin Urine Color YELLOW Urine Appearance CLEAR Urine pH 6.0 Ur Specific Leslie 1.017 Urine Protein 100 H Urine Glucose (UA) >=500 H Urine Ketones NEGATIVE Urine Blood SMALL H Urine RBC (Auto) 9 03/25/20 03/25/20 03/25/20 21:45 21:45 21:45 Creatine Kinase 39 L CK-MB (CK-2) 0.65 Troponin I < 0.012 NT-Pro-B Natriuret Pep 2270 H 03/26/20 01:04 Creatine Kinase CK-MB (CK-2) Troponin I 0.028 NT-Pro-B Natriuret Pep Impressions: Chest X-Ray 03/25/20 21:48 IMPRESSION: No significant change in the appearance of the chest. Assessment and Plan - Diagnosis (1) Acute and chronic respiratory failure with hypercapnia Is this a current diagnosis for this admission?: Yes Plan: Avoid medications reducing respiratory drive, BiPAP, follow-up ABG (2) Heart failure with reduced ejection fraction Is this a current diagnosis for this admission?: Yes Plan: Appears somewhat decompensated, IV Lasix initiated, trial Coreg once better compensated, follow-up transfer summary medication reconciliation. (3) Hyperlipidemia associated with type 2 diabetes mellitus Is this a current diagnosis for this admission?: Yes Plan: 8 units regular insulin IV x1 followed by Humalog every 6 hours as needed, follow-up transfer summary medication reconciliation (4) Hypertension Qualifiers: Hypertension type: essential hypertension Qualified Code(s): I10 - Essential (primary) hypertension Is this a current diagnosis for this admission?: Yes Plan: Trial Coreg, nitro patch and Lasix. (5) Osteomyelitis of ankle Is this a current diagnosis for this admission?: Yes Plan: Follow-up transfer summary from [facility] and surgical eval for possible debridement
[2020-03-26] MEDS ORDERED: CARVEDILOL 3.125 MG TABLET PO ONE (05:00)
--- NOTE | 2020-03-26 05:06 | RADIOLOGY REPORT (SQ) ---
CLINICAL HISTORY: sudden hypoxia, right sided PICC, bed bound,EVAL PE CREAT 0.88 COMPARISON: None. TECHNIQUE: CT CHEST ANGIOGRAPHY WITHOUT THEN WITH IV CONTRAST on 03/26/2020 12:21 AM CDT. MIPS reconstructions were generated. This exam was performed according to our departmental dose-optimization program, which includes automated exposure control, adjustment of the mA and/or kV according to patient size and/or use of iterative reconstruction technique. MIP images were generated. FINDINGS: Thoracic aorta is normal in course and caliber without aneurysm or dissection. Pulmonary arteries are adequately opacified without acute or chronic filling defects. The heart is normal in size. There is no pericardial effusion. Intrathoracic lymph nodes are not enlarged. There are moderate bilateral pleural effusions. Central airways are patent. There is bibasilar atelectasis. Right upper lobectomy was performed. There are no acute abnormalities within the limited images of the upper abdomen. There are no acute osseous findings. No suspicious bony lesions. IMPRESSION: No aortic dissection or aneurysm. No pulmonary embolus. Bilateral pleural effusions without definite pneumonia.
[2020-03-26] MEDS: ACETAMINOPHEN 325 MG TABLET PO PRN (05:32)
[2020-03-26] MEDS: HEPARIN SOD (PORCINE) 5,000 UNIT/ML 1 ML VIAL SUBCUT SCH ×3 (05:33→22:59)
[2020-03-26] MEDS ORDERED: INSULIN REG, HUMAN 100 UNIT/ML 3 ML VIAL (PYX) SUBCUT SCH (06:00)
[2020-03-26] MEDS ORDERED: INSULIN REG, HUMAN 100 UNIT/ML 3 ML VIAL (PYX) ONE (06:19)
[2020-03-26] MEDS ORDERED: DEXTROSE 50%-WATER SYRINGE 12.5 GM/25 ML DOSE IV PRN (06:30)
[2020-03-26] MEDS ORDERED: DEXTROSE 50%-WATER SYRINGE 25 GM/50 ML DOSE IV PRN (06:30)
[2020-03-26] MEDS ORDERED: DEXTROSE 40% GEL 15 GM TUBE X 2 PO PRN (06:30)
[2020-03-26] MEDS ORDERED: DEXTROSE 40% GEL 15 GM TUBE PO PRN (06:30)
[2020-03-26] MEDS ORDERED: GLUCAGON,HUMAN RECOMB 1 MG INJ IM PRN (06:30)
[2020-03-26 08:35] LABS: ANION GAP 7 (5-19); BLOOD UREA NITROGEN 25 mg/dL (7-20); CALCIUM 8.6 mg/dL (8.4-10.2); CARBON DIOXIDE 37 mmol/L (22-30); CHLORIDE 91 mmol/L (98-107); POTASSIUM 4.3 mmol/L (3.6-5.0)
[2020-03-26 08:55] LABS: GLUCOSE 461 mg/dL (75-110)
[2020-03-26] MEDS: IPRATROPIUM/ALBUTEROL 0.5-2.5 MG/3 ML AMPUL NEB SCH ×3 (09:12→23:49)
[2020-03-26] MEDS: ASPIRIN 81 MG TABLET, ENT COATED PO SCH (09:28)
[2020-03-26] MEDS: FLUTICASONE NASAL SPRAY 50 MCG/SPRY 120 SPRAY/16 GM NASL SCH ×2 (09:28→23:03)
[2020-03-26] MEDS: FUROSEMIDE INJ/PF 40 MG/4 ML SDV IV SCH (09:28)
--- NOTE | 2020-03-26 09:31 | EKG REPORT ---
SEVERITY:- ABNORMAL ECG - SINUS TACHYCARDIA PROBABLE ANTEROSEPTAL INFARCT, OLD REPOL ABNRM SUGGESTS ISCHEMIA, DIFFUSE LEADS BORDERLINE PROLONGED QT INTERVAL : Confirmed by: Merari Streeter MD 26-Mar-2020 09:31:17
--- NOTE | 2020-03-26 10:09 | PDOC PROGRESS REPORT ---
Subjective Progress Note for:: 03/26/20 Subjective:: Patient is resting comfortably. He in fact is saturating at 93% on room air. He has no wheezes. He is quite hard of hearing. This could be the PPE mask as well. He is still having significant pain in the left lateral malleolus ulcer. Reason For Visit: ACUTE AND CHRONIC RESPIRATORY FAILURE, HEART Physical Exam Vital Signs: Temp Pulse Resp BP Pulse Ox 97.7 F 72 25 H 124/68 98 03/26/20 07:43 03/26/20 09:13 03/26/20 09:13 03/26/20 07:43 03/26/20 09:13 Intake & Output 03/25/20 03/26/20 03/27/20 06:59 06:59 06:59 Intake Total 773 Output Total 1700 Balance -927 Weight 77.9 kg General appearance: PRESENT: cooperative, hard of hearing, mild distress, thin Head exam: PRESENT: atraumatic, normocephalic Eye exam: PRESENT: conjunctiva pale. ABSENT: scleral icterus Ear exam: PRESENT: normal external ear exam. ABSENT: bleeding, drainage Mouth exam: PRESENT: moist, tongue midline Teeth exam: PRESENT: poor dentation Respiratory exam: PRESENT: clear to auscultation sameer, symmetrical, unlabored. ABSENT: rales, rhonchi, tachypnea, wheezes Cardiovascular exam: PRESENT: RRR, +S1, +S2 Pulses: PRESENT: +1 pedal pulses bilateral GI/Abdominal exam: PRESENT: normal bowel sounds, soft. ABSENT: distended, guarding, tenderness Rectal exam: PRESENT: deferred Gentrourinary exam: ABSENT: indwelling catheter Extremities exam: PRESENT: other - There is an ulcer on the left lateral malleolus. This is most likely arterial due to his severe peripheral arterial disease. The dressing is dry and I had to moisten it with saline to remove. There is some discharge. It is quite tender.. ABSENT: pedal edema Neurological exam: PRESENT: alert, awake, oriented to person, other. ABSENT: oriented to place, oriented to situation Psychiatric exam: PRESENT: flat affect. ABSENT: agitated, anxious Focused psych exam: ABSENT: delusional, paranoid, restlessness Skin exam: PRESENT: other - Ulcer as above Results Laboratory Results: 03/25/20 21:45 03/26/20 07:49 03/25/20 03/25/20 03/25/20 21:45 21:45 21:45 WBC 17.9 H RBC 3.34 L Hgb 10.4 L Hct 31.7 L MCV 95 MCH 31.1 MCHC 32.8 RDW 12.8 Plt Count 412 Seg Neutrophils % 71.6 Carbonic Acid HCO3/H2CO3 Ratio ABG pH ABG pCO2 ABG pO2 ABG HCO3 ABG O2 Saturation ABG Base Excess FiO2 Sodium 134.4 L Potassium 5.0 Chloride 94 L Carbon Dioxide 34 H Anion Gap 6 BUN 21 H Creatinine 0.88 Est GFR ( Amer) > 60 Glucose 416 H* Lactic Acid 1.1 Calcium 8.7 Total Bilirubin 0.6 AST 37 Alkaline Phosphatase 182 H Total Protein 6.6 Albumin 3.4 L Urine Color Urine Appearance Urine pH Ur Specific [place] Urine Protein Urine Glucose (UA) Urine Ketones Urine Blood Urine RBC (Auto) 03/25/20 03/25/20 03/26/20 21:45 22:25 04:24 WBC RBC Hgb Hct MCV MCH MCHC RDW Plt Count Seg Neutrophils % Carbonic Acid 2.56 H 1.80 H HCO3/H2CO3 Ratio 14:1 20:1 ABG pH 7.25 L 7.40 ABG pCO2 85.1 H* 59.9 H ABG pO2 202.2 H 91.9 ABG HCO3 36.8 H 36.5 H ABG O2 Saturation 99.1 H 96.8 ABG Base Excess 6.5 10.1 FiO2 60 50% Sodium Potassium Chloride Carbon Dioxide Anion Gap BUN Creatinine Est GFR ( Amer) Glucose Lactic Acid Calcium Total Bilirubin AST Alkaline Phosphatase Total Protein Albumin Urine Color YELLOW Urine Appearance CLEAR Urine pH 6.0 Ur Specific [place] 1.017 Urine Protein 100 H Urine Glucose (UA) >=500 H Urine Ketones NEGATIVE Urine Blood SMALL H Urine RBC (Auto) 9 03/26/20 07:49 WBC RBC Hgb Hct MCV MCH MCHC RDW Plt Count Seg Neutrophils % Carbonic Acid HCO3/H2CO3 Ratio ABG pH ABG pCO2 ABG pO2 ABG HCO3 ABG O2 Saturation ABG Base Excess FiO2 Sodium 135.0 L Potassium 4.3 Chloride 91 L Carbon Dioxide 37 H Anion Gap 7 BUN 25 H Creatinine 0.90 Est GFR ( Amer) > 60 Glucose 461 H* Lactic Acid Calcium 8.6 Total Bilirubin AST Alkaline Phosphatase Total Protein Albumin Urine Color Urine Appearance Urine pH Ur Specific [place] Urine Protein Urine Glucose (UA) Urine Ketones Urine Blood Urine RBC (Auto) 03/25/20 03/25/20 03/25/20 21:45 21:45 21:45 Creatine Kinase 39 L CK-MB (CK-2) 0.65 Troponin I < 0.012 NT-Pro-B Natriuret Pep 2270 H 03/26/20 03/26/20 01:04 07:49 Creatine Kinase CK-MB (CK-2) Troponin I 0.028 0.027 NT-Pro-B Natriuret Pep Impressions: Chest X-Ray 03/25/20 21:48 IMPRESSION: No significant change in the appearance of the chest. Chest/Abdomen CTA 03/26/20 00:21 IMPRESSION: No aortic dissection or aneurysm. No pulmonary embolus. Bilateral pleural effusions without definite pneumonia. Assessment and Plan - Diagnosis (1) Acute and chronic respiratory failure with hypercapnia Is this a current diagnosis for this admission?: Yes Plan: Avoid medications reducing respiratory drive, BiPAP, follow-up ABG 03/26/2020 Attempt to wean from BiPAP. Nebulizer treatments. No antibiotics at this time. 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 He has been on Lantus in the past. Will institute twice daily Lantus dosing and aggressive sliding scale and monitor closely with Accu-Cheks before meals and at bedtime. Adjust insulin based on sliding scale requirements. (3) Acute on chronic systolic heart failure Is this a current diagnosis for this admission?: Yes Plan: 03/26/2020 Recent echocardiogram revealed ejection fraction of only 30 to 35% with no diastolic dysfunction. Continue current regimen. Monitor intake and output. (4) Hyperlipidemia associated with type 2 diabetes mellitus Is this a current diagnosis for this admission?: Yes Plan: 8 units regular insulin IV x1 followed by Humalog every 6 hours as needed, follow-up transfer summary medication reconciliation 03/26/2020 Resume statin therapy. Diabetes has been exceptionally hard to control as noted above. Diabetic/cardiac diet (5) Osteomyelitis of ankle Qualifiers: Osteomyelitis type: unspecified type Laterality: left Qualified Code(s): M86.9 - Osteomyelitis, unspecified Is this a current diagnosis for this admission?: Yes Plan: Follow-up transfer summary from [facility] and surgical eval for possible debridement 03/26/2020 Request [facility] records. Typically with osteomyelitis the patient is on IV antibiotics for at least 6 weeks. Culture from his previous hospitalization grew multiple gram-positive organisms both anaerobic and aerobic. (6) Hypertension Qualifiers: Hypertension type: essential hypertension Qualified Code(s): I10 - Essential (primary) hypertension Is this a current diagnosis for this admission?: Yes Plan: Trial Coreg, nitro patch and Lasix. 03/26/2020 We will request [facility] records. We will continue their current regimen which encompasses his coronary disease, heart failure and hypertension. (7) Coronary artery disease Qualifiers: Coronary Disease-Associated Artery/Lesion type: [place] artery Is this a current diagnosis for this admission?: Yes Plan: 03/26/2020 Patient had an end STEMI last month and was transferred to [facility]. We will continue his current medication regimen. Will monitor for any evidence of acute coronary syndrome. 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 The arterial ulcer is painful. I have ordered Santyl with moist gauze dressing changes twice daily. Consider surgical evaluation. (9) Ankle pain Qualifiers: Chronicity: chronic Is this a current diagnosis for this admission?: Yes Plan: 03/26/2020 Arterial ulcers tend to be extremely painful. Consider elevating white when possible. Analgesia as needed. (10) Abdominal aortic aneurysm Qualifiers: Presence of rupture: without rupture Qualified Code(s): I71.4 - Abdominal a ortic aneurysm, without rupture Is this a current diagnosis for this admission?: Yes Plan: 03/26/2020 Stable. Continue statin therapy and antihypertensives. (11) Aneurysm, common iliac artery Is this a current diagnosis for this admission?: Yes Plan: 03/26/2020 The patient has bilateral iliac artery aneurysms. As noted above continue statin therapy and control blood pressure. (12) Alcohol dependence Qualifiers: Substance use status: uncomplicated Qualified Code(s): F10.20 - Alcohol dependence, uncomplicated Is this a current diagnosis for this admission?: Yes Plan: 03/26/2020 The patient has been an inpatient [facility] for the nursing home facility for several weeks now. Withdrawal should not be an issue. We will monitor closely. (13) Tobacco dependence due to cigarettes Is this a current diagnosis for this admission?: Yes Plan: 03/26/2020 The patient has been hospitalized for several weeks now. He should not be having any nicotine withdrawal. No need for nicotine patch. (14) Noncompliance Is this a current diagnosis for this admission?: Yes Plan: 03/26/2020 Long history of noncompliance. Will likely be returning to the nursing home facility at this time. - Time Time Spent with patient: 15-24 minutes Medications reviewed and adjusted accordingly: Yes Anticipated discharge: SNF
[2020-03-26] MEDS: INSULIN LISPRO 100 UNIT/ML 3 ML VIAL SUBCUT SCH ×3 (11:46→23:01)
[2020-03-26] MEDS ORDERED: INSULIN GLARGINE,HUM.REC.ANLOG 1,000 UNIT/10 ML VIAL (PYX) SUBCUT ONE ×2 (11:55→13:00)
[2020-03-26] MEDS ORDERED: INSULIN GLARGINE,HUM.REC.ANLOG 1,000 UNIT/10 ML VIAL SUBCUT SCH (14:00)
[2020-03-26] MEDS: COLLAGENASE CLOSTRIDIUM HIST. OINT 30 GM TP SCH (17:14)
[2020-03-26] MEDS: PANTOPRAZOLE SODIUM 40 MG TABLET.DR PO SCH (17:14)
[2020-03-26] MEDS: MAGNESIUM OXIDE 400 MG TABLET PO SCH (17:14)
[2020-03-26] MEDS: ATORVASTATIN CALCIUM 80 MG TABLET PO SCH (22:59)
[2020-03-26] MEDS: CARVEDILOL 3.125 MG TABLET PO SCH (22:59)
[2020-03-26] MEDS: INSULIN GLARGINE,HUM.REC.ANLOG 1,000 UNIT/10 ML VIAL SUBCUT SCH (23:00)
[2020-03-27] MEDS: HEPARIN SOD (PORCINE) 5,000 UNIT/ML 1 ML VIAL SUBCUT SCH ×3 (06:21→22:56)
[2020-03-27] MEDS: ACETAMINOPHEN 325 MG TABLET PO PRN ×2 (06:31→19:55)
[2020-03-27 08:00] LABS: ABSOLUTE LYMPHOCYTES (AUTO) 1.8 10^3/uL (0.5-4.7); ABSOLUTE MONOCYTES (AUTO) 0.8 10^3/uL (0.1-1.4); ABSOLUTE NEUT (AUTO) 8.1 10^3/uL (1.7-8.2); BASOPHILS % (AUTO) 0.2 % (0-2); EOSINOPHILS % (AUTO) 0.2 % (0-6); HEMATOCRIT 26.9 % (37.9-51.0); HEMOGLOBIN 9.1 g/dL (13.5-17.0); MEAN CORPUSCULAR HEMOGLOBIN 31.3 pg (27.0-33.4); MEAN CORPUSCULAR HGB CONC 33.8 g/dL (32.0-36.0); MEAN CORPUSCULAR VOLUME 92 fl (80-97); MONOCYTES % (AUTO) 7.2 % (3-13); PLATELET COUNT 239 10^3/uL (150-450); RED BLOOD COUNT 2.91 10^6/uL (4.35-5.55); RED CELL DISTRIBUTION WIDTH 12.8 % (11.5-14.0); SEGMENTED NEUTROPHILS % (AUTO) 75.4 % (42-78); TOTAL CELLS COUNTED % (AUTO) 100 %; WHITE BLOOD COUNT 10.7 10^3/uL (4.0-10.5)
[2020-03-27] MEDS: IPRATROPIUM/ALBUTEROL 0.5-2.5 MG/3 ML AMPUL NEB SCH ×2 (08:02→16:42)
[2020-03-27 08:18] LABS: BLOOD UREA NITROGEN 26 mg/dL (7-20); CALCIUM 8.6 mg/dL (8.4-10.2); CARBON DIOXIDE 39 mmol/L (22-30); CHLORIDE 94 mmol/L (98-107); GLUCOSE 225 mg/dL (75-110)
[2020-03-27 08:25] LABS: ANION GAP 4 (5-19)
[2020-03-27] MEDS ORDERED: INSULIN GLARGINE,HUM.REC.ANLOG 1,000 UNIT/10 ML VIAL SUBCUT SCH (10:00)
[2020-03-27] MEDS: FUROSEMIDE INJ/PF 40 MG/4 ML SDV IV SCH (11:07)
[2020-03-27] MEDS: NITROGLYCERIN 5 MG (0.2 MG/HR) PATCH.TD24 TD SCH (11:07)
[2020-03-27] MEDS: MAGNESIUM OXIDE 400 MG TABLET PO SCH ×2 (11:08→18:11)
[2020-03-27] MEDS: ASPIRIN 81 MG TABLET, ENT COATED PO SCH (11:08)
[2020-03-27] MEDS: CLOPIDOGREL BISULFATE 75 MG TABLET PO SCH (11:09)
[2020-03-27] MEDS: THIAMINE HCL 100 MG TABLET PO SCH (11:09)
[2020-03-27] MEDS: CARVEDILOL 3.125 MG TABLET PO SCH ×2 (11:09→22:55)
[2020-03-27] MEDS: INSULIN LISPRO 100 UNIT/ML 3 ML VIAL SUBCUT SCH ×4 (11:10→22:59)
[2020-03-27] MEDS: PANTOPRAZOLE SODIUM 40 MG TABLET.DR PO SCH ×2 (11:10→18:11)
[2020-03-27] MEDS: COLLAGENASE CLOSTRIDIUM HIST. OINT 30 GM TP SCH ×2 (11:10→18:11)
[2020-03-27] MEDS: INSULIN GLARGINE,HUM.REC.ANLOG 1,000 UNIT/10 ML VIAL SUBCUT SCH ×2 (11:12→22:57)
[2020-03-27] MEDS: FLUTICASONE NASAL SPRAY 50 MCG/SPRY 120 SPRAY/16 GM NASL SCH ×2 (11:14→22:56)
--- NOTE | 2020-03-27 14:34 | PDOC PROGRESS REPORT ---
Subjective Progress Note for:: 03/27/20 Subjective:: Patient reports that the ankle is feeling better. COVID screening is still pending. He is complaining that he is hungry and wants more to eat. He does not realize that he is diabetic. Reason For Visit: ACUTE AND CHRONIC RESPIRATORY FAILURE, HEART Physical Exam Vital Signs: Temp Pulse Resp BP Pulse Ox 97.8 F 67 16 133/65 H 97 03/27/20 03:51 03/27/20 08:02 03/27/20 08:02 03/27/20 03:51 03/27/20 08:02 Intake & Output 03/26/20 03/27/20 03/28/20 06:59 06:59 06:59 Intake Total 773 1287 Output Total 1700 1900 Balance -927 -613 Weight 77.9 kg 77.9 kg General appearance: PRESENT: no acute distress, cooperative, thin, well- developed Head exam: PRESENT: atraumatic, normocephalic Eye exam: PRESENT: conjunctiva pink. ABSENT: scleral icterus Ear exam: PRESENT: normal external ear exam. ABSENT: bleeding, drainage Mouth exam: PRESENT: moist, tongue midline Respiratory exam: PRESENT: clear to auscultation sameer, prolonged expiratory phas, symmetrical, unlabored. ABSENT: accessory muscle use, rales, rhonchi, tachypnea, wheezes Cardiovascular exam: PRESENT: RRR, +S1, +S2. ABSENT: diastolic murmur, irregular rhythm, systolic murmur GI/Abdominal exam: PRESENT: normal bowel sounds, soft. ABSENT: distended, guarding, tenderness Rectal exam: PRESENT: deferred Extremities exam: ABSENT: pedal edema Musculoskeletal exam: PRESENT: other - Decreased muscle mass Neurological exam: PRESENT: alert, awake, oriented to person, oriented to place, oriented to situation. ABSENT: altered Psychiatric exam: PRESENT: appropriate affect. ABSENT: agitated, anxious Focused psych exam: ABSENT: delusional, paranoid, restlessness Skin exam: PRESENT: other - Left ankle ulcer not examined today Results Laboratory Results: 03/27/20 06:50 03/27/20 06:50 03/27/20 03/27/20 06:50 06:50 WBC 10.7 H RBC 2.91 L Hgb 9.1 L Hct 26.9 L MCV 92 MCH 31.3 MCHC 33.8 RDW 12.8 Plt Count 239 Seg Neutrophils % 75.4 Sodium 137.4 Potassium 4.0 Chloride 94 L Carbon Dioxide 39 H Anion Gap 4 L BUN 26 H Creatinine 0.85 Est GFR ( Amer) > 60 Glucose 225 H Calcium 8.6 Magnesium 1.8 03/25/20 03/25/20 03/25/20 21:45 21:45 21:45 Creatine Kinase 39 L CK-MB (CK-2) 0.65 Troponin I < 0.012 NT-Pro-B Natriuret Pep 2270 H 03/26/20 03/26/20 03/27/20 01:04 07:49 06:50 Creatine Kinase CK-MB (CK-2) Troponin I 0.028 0.027 0.017 NT-Pro-B Natriuret Pep Impressions: Chest X-Ray 03/25/20 21:48 IMPRESSION: No significant change in the appearance of the chest. Chest/Abdomen CTA 03/26/20 00:21 IMPRESSION: No aortic dissection or aneurysm. No pulmonary embolus. Bilateral pleural effusions without definite pneumonia. Assessment and Plan - Diagnosis (1) Acute and chronic respiratory failure with hypercapnia Is this a current diagnosis for this admission?: Yes Plan: Avoid medications reducing respiratory drive, BiPAP, follow-up ABG 03/26/2020 Attempt to wean from BiPAP. Nebulizer treatments. No antibiotics at this time. 03/27/2020 He is down to 2 L nasal cannula. His breathing is much more comfortable. Continue current plan. (2) Hyperglycemia due to type 2 diabetes mellitus Qualifiers: Diabetes mellitus detention insulin use: with detention use Qualified Code(s): E11.65 - Type 2 diabetes mellitus with hyperglycemia; Z79.4 - skilled nursing (current) use of insulin Is this a current diagnosis for this admission?: Yes Plan: 03/26/2020 Significant hyperglycemia with Accu-Cheks greater than 400. He has been on Lantus in the past. Will institute twice daily Lantus dosing and aggressive sliding scale and monitor closely with Accu-Cheks before meals and at bedtime. Adjust insulin based on sliding scale requirements. 03/27/2020 Accu-Cheks are still quite high. I increased his Lantus again. His hemoglobin A1c was 10. I do not think the patient realizes the severity of his diabetes. (3) Acute on chronic systolic heart failure Is this a current diagnosis for this admission?: Yes Plan: 03/26/2020 Recent echocardiogram revealed ejection fraction of only 30 to 35% with no diastolic dysfunction. Continue current regimen. Monitor intake and output. 03/27/2020 Maintaining negative fluid balance. Continue current regimen. (4) Hyperlipidemia associated with type 2 diabetes mellitus Is this a current diagnosis for this admission?: Yes Plan: 8 units regular insulin IV x1 followed by Humalog every 6 hours as needed, follow-up transfer summary medication reconciliation 03/26/2020 Resume statin therapy. Diabetes has been exceptionally hard to control as noted above. Diabetic/cardiac diet 03/27/2020 Continue high-dose atorvastatin (5) Osteomyelitis of ankle Qualifiers: Osteomyelitis type: unspecified type Laterality: left Qualified Code(s): M86.9 - Osteomyelitis, unspecified Is this a current diagnosis for this admission?: Yes Plan: Follow-up transfer summary from [facility] and surgical eval for possible debridement 03/26/2020 Request [facility] records. Typically with osteomyelitis the patient is on IV antibiotics for at least 6 weeks. Culture from his previous hospitalization grew multiple gram-positive organisms both anaerobic and aerobic. 03/27/2020 Patient reports that the ankle is feeling better. Will review [facility] records (6) Hypertension Qualifiers: Hypertension type: essential hypertension Qualified Code(s): I10 - Essential (primary) hypertension Is this a current diagnosis for this admission?: Yes Plan: Trial Coreg, nitro patch and Lasix. 03/26/2020 We will request [facility] records. We will continue their current regimen which encompasses his coronary disease, heart failure and hypertension. 03/27/2020 Good blood pressure control. Continue current regimen (7) Coronary artery disease Qualifiers: Coronary Disease-Associated Artery/Lesion type: [place] artery Is this a current diagnosis for this admission?: Yes Plan: 03/26/2020 Patient had an end STEMI last month and was transferred to [facility]. We will continue his current medication regimen. Will monitor for any evidence of acute coronary syndrome. 03/27/2020 No evidence of ACS. 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 The arterial ulcer is painful. I have ordered Santyl with moist gauze dressing changes twice daily. Consider surgical evaluation. 03/27/2020 No evidence of ischemia (9) Ankle pain Qualifiers: Chronicity: chronic Is this a current diagnosis for this admission?: Yes Plan: 03/26/2020 Arterial ulcers tend to be extremely painful. Consider elevating white when possible. Analgesia as needed. 03/27/2020 Improved (10) Abdominal aortic aneurysm Qualifiers: Presence of rupture: without rupture Qualified Code(s): I71.4 - Abdominal aortic aneurysm, without rupture Is this a current diagnosis for this admission?: Yes Plan: 03/26/2020 Stable. Continue statin therapy and antihypertensives. (11) Aneurysm, common iliac artery Is this a current diagnosis for this admission?: Yes Plan: 03/26/2020 The patient has bilateral iliac artery aneurysms. As noted above continue statin therapy and control blood pressure. (12) Alcohol dependence Qualifiers: Substance use status: uncomplicated Qualified Code(s): F10.20 - Alcohol dependence, uncomplicated Is this a current diagnosis for this admission?: Yes Plan: 03/26/2020 The patient has been an inpatient either [facility] for the senior care facility for several weeks now. Withdrawal should not be an issue. We will monitor closely. 03/27/2020 No evidence of withdrawal (13) Tobacco dependence due to cigarettes Is this a current diagnosis for this admission?: Yes Plan: 03/26/2020 The patient has been hospitalized for several weeks now. He should not be having any nicotine withdrawal. No need for nicotine patch. (14) Noncompliance Is this a current diagnosis for this admission?: Yes Plan: 03/26/2020 Long history of noncompliance. Will likely be returning to the senior care facility at this time. - Plan Summary Summary: 03/27/2020 COVID screen is negative. Patient can transfer to third or fourth floor - Time Time Spent with patient: 15-24 minutes Medications reviewed and adjusted accordingly: Yes Anticipated discharge: SNF
[2020-03-27] MEDS ORDERED: VITAMIN B COMPLEX TABLET PO ONE ×2 (15:00→19:00)
[2020-03-27] MEDS: ATORVASTATIN CALCIUM 80 MG TABLET PO SCH (22:55)
[2020-03-28] MEDS: IPRATROPIUM/ALBUTEROL 0.5-2.5 MG/3 ML AMPUL NEB SCH ×2 (00:53→09:10)
[2020-03-28] MEDS ORDERED: COLLAGENASE CLOSTRIDIUM HIST. OINT 30 GM ONE (02:34)
[2020-03-28] MEDS: HEPARIN SOD (PORCINE) 5,000 UNIT/ML 1 ML VIAL SUBCUT SCH ×2 (05:28→13:46)
[2020-03-28] MEDS: ACETAMINOPHEN 325 MG TABLET PO PRN (07:00)
[2020-03-28] MEDS: INSULIN LISPRO 100 UNIT/ML 3 ML VIAL SUBCUT SCH ×2 (09:00→12:00)
[2020-03-28] MEDS: NITROGLYCERIN 5 MG (0.2 MG/HR) PATCH.TD24 TD SCH (09:49)
[2020-03-28] MEDS: MAGNESIUM OXIDE 400 MG TABLET PO SCH (09:50)
[2020-03-28] MEDS: THIAMINE HCL 100 MG TABLET PO SCH (09:50)
[2020-03-28] MEDS: ASPIRIN 81 MG TABLET, ENT COATED PO SCH (09:50)
[2020-03-28] MEDS: CARVEDILOL 3.125 MG TABLET PO SCH (09:50)
[2020-03-28] MEDS: PANTOPRAZOLE SODIUM 40 MG TABLET.DR PO SCH (09:50)
[2020-03-28] MEDS: CLOPIDOGREL BISULFATE 75 MG TABLET PO SCH (09:50)
[2020-03-28] MEDS: FUROSEMIDE INJ/PF 40 MG/4 ML SDV IV SCH (09:50)
[2020-03-28] MEDS: FLUTICASONE NASAL SPRAY 50 MCG/SPRY 120 SPRAY/16 GM NASL SCH (09:51)
[2020-03-28] MEDS: INSULIN GLARGINE,HUM.REC.ANLOG 1,000 UNIT/10 ML VIAL SUBCUT SCH (09:56)
[2020-03-28] MEDS ORDERED: MULTIVITAMINS W-IRON TABLET, CHEWABLE PO SCH (10:00)
[2020-03-28] MEDS ORDERED: ZINC SULFATE 220 MG CAPSULE PO SCH (10:00)
[2020-03-28] MEDS: COLLAGENASE CLOSTRIDIUM HIST. OINT 30 GM TP SCH (10:06)
--- NOTE | 2020-03-28 12:53 | PDOC DISCHARGE SUMMARY ---
Impression - Admit/DC Date/PCP Admission Date/Primary Care Provider: 03/26/20 00:33 BRIANNA LEE MD Discharge Date: 03/28/20 - Discharge Diagnosis (1) Acute and chronic respiratory failure with hypercapnia Is this a current diagnosis for this admission?: Yes (2) Hyperglycemia due to type 2 diabetes mellitus Is this a current diagnosis for this admission?: Yes (3) Acute on chronic systolic heart failure Is this a current diagnosis for this admission?: Yes (4) Hyperlipidemia associated with type 2 diabetes mellitus Is this a current diagnosis for this admission?: Yes (5) Osteomyelitis of ankle Is this a current diagnosis for this admission?: Yes (6) Hypertension Is this a current diagnosis for this admission?: Yes (7) Coronary artery disease Is this a current diagnosis for this admission?: Yes (8) 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 Patient can transfer to third or fourth floor - Additional Information Resuscitation Status: Do Not Resuscitate Discharge Diet: Cardiac, Diabetic Discharge Activity: Balance Activity w/Rest Referrals: [facility] [Outside] [facility] [Outside] (PATIENT WILL BE FOLLOWED BY [facility]. UPON D/C PATIENT SHOULD SELF QUARANTINE UNTIL CLEARED BY HEALTH DEPT. ONCE CLEARED PATIENT MAY THEN SCHEDULE AN APPT. WITH PRIMARY CARE PROVIDER.) Prescriptions: Amoxicillin/Potassium Clav [Augmentin 875-125 Tablet] 1 tab PO Q12 10 Days #20 tablet Nitroglycerin [Nitro-Dur 5 mg (0.2 mg/Hr) Transdermal Patch] 1 each TD DAILY 30 Days #30 patch.td24 Home Medications: Aspirin [Aspirin 81 mg Chewable Tablet] 81 mg PO DAILY 03/26/20 Atorvastatin Calcium [Lipitor 80 mg Tablet] 80 mg PO QHS 03/26/20 Carvedilol [Coreg 12.5 mg Tablet] 12.5 mg PO Q12 03/26/20 Clopidogrel Bisulfate [Plavix 75 mg Tablet] 75 mg PO DAILY 03/26/20 Furosemide [Lasix 40 mg Tablet] 40 mg PO BID 03/26/20 Insulin Aspart [Novolog Flexpen] 7 unit SUBCUT ACHS 03/26/20 Ipratropium/Albuterol Sulfate [Duoneb 3 ml Ampul] 3 ml NEB Q4HP PRN 03/26/20 Magnesium Oxide [Mag-Ox 400 mg Tablet] 400 mg PO BID 03/26/20 Oxycodone HCl [Oxy-Ir 5 mg Tablet] 5 mg PO Q4HP PRN 03/26/20 Pantoprazole Sodium [Protonix [address] Tablet] 40 mg PO BID 03/26/20 Thiamine HCl [Thiamine 100 mg Tablet] 100 mg PO DAILY 03/26/20 Amoxicillin/Potassium Clav [Augmentin 875-125 Tablet] 1 tab PO Q12 10 Days #20 tablet 03/28/20 Aspirin [Ecotrin 81 mg EC Tablet] 81 mg PO DAILY tabec 03/28/20 Collagenase Clostridium Hist. [Santyl Ointment 30 gm] 1 applic TP BID tube 03/28/20 Fluticasone Propionate [Flonase Nasal [place] 50 Mcg/[place] 16 gm] 2 spray NASL Q12 spray.pump 03/28/20 Insulin Glargine,Hum.rec.anlog [Lantus Insulin 100 Unit/1 ml 10 ml] 18 unit SUBCUT Q12 unit 03/28/20 Multivitamins W-Iron [Flintstones Chewable Multivit W/Fe Tab] 2 tab PO DAILY tab.chew 03/28/20 Nitroglycerin [Nitro-Dur 5 mg (0.2 mg/Hr) Transdermal Patch] 1 each TD DAILY 30 Days #30 patch.td24 03/28/20 Zinc Sulfate [Zinc-220 Capsule] 220 mg PO DAILY capsule 03/28/20 History of Present Illiness History of Present Illness: JOHANA BOND is a 84 year old male Physical Exam Vital Signs: Temp Pulse Resp BP Pulse Ox 98.0 F 74 18 138/60 H 95 03/28/20 08:12 03/28/20 09:15 03/28/20 09:15 03/28/20 08:12 03/28/20 09:15 Intake & Output 03/27/20 03/28/20 03/29/20 06:59 06:59 06:59 Intake Total 1287 520 Output Total 8005 764 Balance -613 -330 Weight 77.9 kg 70.1 kg Results Laboratory Results: WBC 10.7 10^3/uL (4.0-10.5) H 03/27/20 06:50 RBC 2.91 10^6/uL (4.35-5.55) L 03/27/20 06:50 Hgb 9.1 g/dL (13.5-17.0) L 03/27/20 06:50 Hct 26.9 % (37.9-51.0) L 03/27/20 06:50 MCV 92 fl (80-97) 03/27/20 06:50 MCH 31.3 pg (27.0-33.4) 03/27/20 06:50 MCHC 33.8 g/dL (32.0-36.0) 03/27/20 06:50 RDW 12.8 % (11.5-14.0) 03/27/20 06:50 Plt Count 239 10^3/uL (150-450) 03/27/20 06:50 Lymph % (Auto) 17.0 % (13-45) 03/27/20 06:50 [place] % (Auto) 7.2 % (3-13) 03/27/20 06:50 Eos % (Auto) 0.2 % (0-6) 03/27/20 06:50 Baso % (Auto) 0.2 % (0-2) 03/27/20 06:50 Absolute Neuts (auto) 8.1 10^3/uL (1.7-8.2) 03/27/20 06:50 Absolute Lymphs (auto) 1.8 10^3/uL (0.5-4.7) 03/27/20 06:50 Absolute Monos (auto) 0.8 10^3/uL (0.1-1.4) 03/27/20 06:50 Absolute Eos (auto) 0.0 10^3/uL (0.0-0.6) 03/27/20 06:50 Absolute Basos (auto) 0.0 10^3/uL (0.0-0.2) 03/27/20 06:50 Seg Neutrophils % 75.4 % (42-78) 03/27/20 06:50 PT 15.5 SEC (11.4-15.4) H 03/25/20 21:45 INR 1.23 03/25/20 21:45 Carbonic Acid 1.80 mmol/L (1.05-1.35) H 03/26/20 04:24 HCO3/H2CO3 Ratio 20:1 03/26/20 04:24 ABG pH 7.40 (7.35-7.45) 03/26/20 04:24 ABG pCO2 59.9 mmHg (35-45) H 03/26/20 04:24 ABG pO2 91.9 mmHg (80-100) 03/26/20 04:24 ABG HCO3 36.5 mmol/L (20-24) H 03/26/20 04:24 ABG Total CO2 38.4 mmol/L (23-27) H 03/26/20 04:24 ABG O2 Saturation 96.8 % (94-98) 03/26/20 04:24 ABG Base Excess 10.1 mmol/L 03/26/20 04:24 FiO2 50% 03/26/20 04:24 Sodium 137.4 mmol/L (137-145) 03/27/20 06:50 Potassium 4.0 mmol/L (3.6-5.0) 03/27/20 06:50 Chloride 94 mmol/L (98-107) L 03/27/20 06:50 Carbon Dioxide 39 mmol/L (22-30) H 03/27/20 06:50 Anion Gap 4 (5-19) L 03/27/20 06:50 BUN 26 mg/dL (7-20) H 03/27/20 06:50 Creatinine 0.85 mg/dL (0.52-1.25) 03/27/20 06:50 Est GFR ( Amer) > 60 (>60) 03/27/20 06:50 Est GFR (MDRD) Non-Af > 60 (>60) 03/27/20 06:50 Glucose 225 mg/dL (75-110) H 03/27/20 06:50 POC Glucose 196 mg/dL (70-110) H 03/28/20 08:11 Hemoglobin A1c % 10.0 % (4.7-6.0) H 03/27/20 06:50 Lactic Acid 1.1 mmol/L (0.7-2.1) 03/25/20 21:45 Calcium 8.6 mg/dL (8.4-10.2) 03/27/20 06:50 Magnesium 1.8 mg/dL (1.6-2.3) 03/27/20 06:50 Total Bilirubin 0.6 mg/dL (0.2-1.3) 03/25/20 21:45 Direct Bilirubin 0.2 mg/dL (0.0-0.4) 03/25/20 21:45 Neonat Total Bilirubin Not Reportable 03/25/20 21:45 Neonat Direct Bilirubin Not Reportable 03/25/20 21:45 Neonat Indirect Bili Not Reportable 03/25/20 21:45 AST 37 U/L (17-59) 03/25/20 21:45 ALT 38 U/L (<50) 03/25/20 21:45 Alkaline Phosphatase 182 U/L (38-126) H 03/25/20 21:45 Creatine Kinase 39 U/L (55-170) L 03/25/20 21:45 CK-MB (CK-2) 0.65 ng/mL (<4.55) 03/25/20 21:45 Troponin I 0.017 ng/mL 03/27/20 06:50 NT-Pro-B Natriuret Pep 2270 pg/mL (<450) H 03/25/20 21:45 Total Protein 6.6 g/dL (6.3-8.2) 03/25/20 21:45 Albumin 3.4 g/dL (3.5-5.0) L 03/25/20 21:45 Urine Color YELLOW 03/25/20 22:25 Urine Appearance CLEAR 03/25/20 22:25 Urine pH 6.0 (5.0-9.0) 03/25/20 22:25 Ur Specific [place] 1.017 03/25/20 22:25 Urine Protein 100 mg/dL (NEGATIVE) H 03/25/20 22:25 Urine Glucose (UA) >=500 mg/dL (NEGATIVE) H 03/25/20 22:25 Urine Ketones NEGATIVE mg/dL (NEGATIVE) 03/25/20 22:25 Urine Blood SMALL (NEGATIVE) H 03/25/20 22:25 Urine Nitrite (Reflex) NEGATIVE (NEGATIVE) 03/25/20 22:25 Urine Bilirubin NEGATIVE (NEGATIVE) 03/25/20 22:25 Urine Urobilinogen 2.0 mg/dL (<2.0) H 03/25/20 22:25 Leukocyte Esterase Rfl NEGATIVE (NEGATIVE) 03/25/20 22:25 Urine RBC (Auto) 9 /HPF 03/25/20 22:25 U Hyaline Cast (Auto) 16 /LPF 03/25/20 22:25 Urine Bacteria (Auto) TRACE /HPF 03/25/20 22:25 Urine WBC (Reflex) 5 /HPF 03/25/20 22:25 Squamous Epi Cells Auto <1 /HPF 03/25/20 22:25 Urine Mucus (Auto) RARE /LPF 03/25/20 22:25 Urine Yeast ([place]) PRESENT /HPF 03/25/20 22:25 Urine Ascorbic Acid NEGATIVE (NEGATIVE) 03/25/20 22:25 COVID-19 Source NASOPHARYNGEAL 03/25/20 22:33 COVID-19 ([place]) NOT DETECTED 03/25/20 22:33 03/25/20 03/25/20 03/26/20 21:45 21:45 01:04 CK-MB (CK-2) 0.65 Troponin I < 0.012 0.028 NT-Pro-B Natriuret Pep 2270 H 03/26/20 03/27/20 07:49 06:50 CK-MB (CK-2) Troponin I 0.027 0.017 NT-Pro-B Natriuret Pep Impressions: Chest X-Ray 03/25/20 21:48 IMPRESSION: No significant change in the appearance of the chest. Chest/Abdomen CTA 03/26/20 00:21 IMPRESSION: No aortic dissection or aneurysm. No pulmonary embolus. Bilateral pleural effusions without definite pneumonia. Plan Health Concerns: Medication compliance in general Patient diagnosed with osteomyelitis [facility]. He refuses to stay in a detention facility to complete his long-term IV antibiotics. He is scheduled for an appointment at the wound care center. I have given him oral antibiotics in the interim. Hopefully he will agree to placement. I do not feel he is able to administer IV antibiotics to himself in a clean and safe manner
--- NOTE | 2020-03-28 14:01 | PDOC TRANSFER SUMMARY ---
Impression - Admit/DC Date/PCP Admission Date/Primary Care Provider: 03/26/20 00:33 BRIANNA LEE MD Discharge Date: 03/28/20 - Discharge Diagnosis (1) Acute and chronic respiratory failure with hypercapnia Is this a current diagnosis for this admission?: Yes (2) Hyperglycemia due to type 2 diabetes mellitus Is this a current diagnosis for this admission?: Yes (3) Acute on chronic systolic heart failure Is this a current diagnosis for this admission?: Yes (4) Hyperlipidemia associated with type 2 diabetes mellitus Is this a current diagnosis for this admission?: Yes (5) Osteomyelitis of ankle Is this a current diagnosis for this admission?: Yes (6) Hypertension Is this a current diagnosis for this admission?: Yes (7) Coronary artery disease Is this a current diagnosis for this admission?: Yes (8) 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 Patient can transfer to third or fourth floor - Additional Information Resuscitation Status: Do Not Resuscitate Discharge Diet: Cardiac, Diabetic Discharge Activity: Balance Activity w/Rest Referrals: [facility] [Outside] [facility] [Outside] (PATIENT WILL BE FOLLOWED BY [facility]. UPON D/C PATIENT SHOULD SELF QUARANTINE UNTIL CLEARED BY HEALTH DEPT. ONCE CLEARED PATIENT MAY THEN SCHEDULE AN APPT. WITH PRIMARY CARE PROVIDER.) Prescriptions: Nitroglycerin [Nitro-Dur 5 mg (0.2 mg/Hr) Transdermal Patch] 1 each TD DAILY 30 Days #30 patch.td24 Piperacillin Sodium/Tazobactam [Zosyn Inj 3.375 gm Vial] 3.375 gm IV Q6 28 Days #112 vial Home Medications: Aspirin [Aspirin 81 mg Chewable Tablet] 81 mg PO DAILY 03/26/20 Atorvastatin Calcium [Lipitor 80 mg Tablet] 80 mg PO QHS 03/26/20 Carvedilol [Coreg 12.5 mg Tablet] 12.5 mg PO Q12 03/26/20 Clopidogrel Bisulfate [Plavix 75 mg Tablet] 75 mg PO DAILY 03/26/20 Furosemide [Lasix 40 mg Tablet] 40 mg PO BID 03/26/20 Insulin Aspart [Novolog Flexpen] 7 unit SUBCUT ACHS 03/26/20 Ipratropium/Albuterol Sulfate [Duoneb 3 ml Ampul] 3 ml NEB Q4HP PRN 03/26/20 Magnesium Oxide [Mag-Ox 400 mg Tablet] 400 mg PO BID 03/26/20 Oxycodone HCl [Oxy-Ir 5 mg Tablet] 5 mg PO Q4HP PRN 03/26/20 Pantoprazole Sodium [Protonix [address] Tablet] 40 mg PO BID 03/26/20 Thiamine HCl [Thiamine 100 mg Tablet] 100 mg PO DAILY 03/26/20 Aspirin [Ecotrin 81 mg EC Tablet] 81 mg PO DAILY tabec 03/28/20 Collagenase Clostridium Hist. [Santyl Ointment 30 gm] 1 applic TP BID tube 03/28/20 Fluticasone Propionate [Flonase Nasal Decker 50 Mcg/Decker 16 gm] 2 spray NASL Q12 spray.pump 03/28/20 Insulin Glargine,Hum.rec.anlog [Lantus Insulin 100 Unit/1 ml 10 ml] 18 unit SUBCUT Q12 unit 03/28/20 Multivitamins W-Iron [Flintstones Chewable Multivit W/Fe Tab] 2 tab PO DAILY tab.chew 03/28/20 Nitroglycerin [Nitro-Dur 5 mg (0.2 mg/Hr) Transdermal Patch] 1 each TD DAILY 30 Days #30 patch.td24 03/28/20 Piperacillin Sodium/Tazobactam [Zosyn Inj 3.375 gm Vial] 3.375 gm IV Q6 28 Days #112 vial 03/28/20 Zinc Sulfate [Zinc-220 Capsule] 220 mg PO DAILY capsule 03/28/20 History of Present Illiness History of Present Illness: JOHANA BOND is a 84 year old male who is a resident of [facility] with a history of COPD, congestive heart failure, coronary artery disease, insulin- dependent diabetes, osteomyelitis of left malleolus and profound physical deconditioning. Assisted living because EMS for respiratory distress and altered mental status. Via EMS he receives nitroglycerin, 100% oxygen, and brought to the emergency room for evaluation where he is found to have confusion and respiratory distress with pulse oximetry in the 70s., Hypercapnic respiratory failure with a PCO2 of 85, hyperglycemia and leukocytosis. He started on BiPAP, his mental status improved and referred to the hospitalist for admission. Patient is unable to provide any history though briefly arousable on BiPAP denying pain. He has ecchymosis to the left thigh and purulent drainage to the left lateral malleolus. CODE STATUS is verified by portable DNR document Hospital Course Hospital Course: (1) Acute and chronic respiratory failure with hypercapnia Is this a current diagnosis for this admission?: Yes Plan: Avoid medications reducing respiratory drive, BiPAP, follow-up ABG 03/26/2020 Attempt to wean from BiPAP. Nebulizer treatments. No antibiotics at this time. 03/27/2020 He is down to 2 L nasal cannula. His breathing is much more comfortable. Continue current plan. 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 He has been on Lantus in the past. Will institute twice daily Lantus dosing and aggressive sliding scale and monitor closely with Accu-Cheks before meals and at bedtime. Adjust insulin based on sliding scale requirements. 03/27/2020 Accu-Cheks are still quite high. I increased his Lantus again. His hemoglobin A1c was 10. I do not think the patient realizes the severity of his diabetes. (3) Acute on chronic systolic heart failure Is this a current diagnosis for this admission?: Yes Plan: 03/26/2020 Recent echocardiogram revealed ejection fraction of only 30 to 35% with no diastolic dysfunction. Continue current regimen. Monitor intake and output. 03/27/2020 Maintaining negative fluid balance. Continue current regimen. (4) Hyperlipidemia associated with type 2 diabetes mellitus Is this a current diagnosis for this admission?: Yes Plan: 8 units regular insulin IV x1 followed by Humalog every 6 hours as needed, follow-up transfer summary medication reconciliation 03/26/2020 Resume statin therapy. Diabetes has been exceptionally hard to control as noted above. Diabetic/cardiac diet 03/27/2020 Continue high-dose atorvastatin (5) Osteomyelitis of ankle Qualifiers: Osteomyelitis type: unspecified type Laterality: left Qualified Code(s): M86.9 - Osteomyelitis, unspecified Is this a current diagnosis for this admission?: Yes Plan: Follow-up transfer summary from [facility] and surgical eval for possible debridement 03/26/2020 Request [facility] records. Typically with osteomyelitis the patient is on IV antibiotics for at least 6 weeks. Culture from his previous hospitalization grew multiple gram-positive organisms both anaerobic and aerobic. 03/27/2020 Patient in fact is on a 6-week course of IV antibiotics that we will resume at [facility] (6) Hypertension Qualifiers: Hypertension type: essential hypertension Qualified Code(s): I10 - Essential (primary) hypertension Is this a current diagnosis for this admission?: Yes Plan: Trial Coreg, nitro patch and Lasix. 03/26/2020 We will request [facility] records. We will continue their current regimen which encompasses his coronary disease, heart failure and hypertension. 03/27/2020 Good blood pressure control. Continue current regimen (7) Coronary artery disease Qualifiers: Coronary Disease-Associated Artery/Lesion type: [place] artery Is this a current diagnosis for this admission?: Yes Plan: 03/26/2020 Patient had an end STEMI last month and was transferred to [facility]. We will continue his current medication regimen. Will monitor for any evidence of acute coronary syndrome. 03/27/2020 No evidence of ACS. 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 The arterial ulcer is painful. I have ordered Santyl with moist gauze dressing changes twice daily. Consider surgical evaluation. 03/27/2020 No evidence of ischemia (9) Ankle pain Qualifiers: Chronicity: chronic Is this a current diagnosis for this admission?: Yes Plan: 03/26/2020 Arterial ulcers tend to be extremely painful. Consider elevating white when possible. Analgesia as needed. 03/27/2020 Improved (10) Abdominal aortic aneurysm Qualifiers: Presence of rupture: without rupture Qualified Code(s): I71.4 - Abdominal aortic aneurysm, without rupture Is this a current diagnosis for this admission?: Yes Plan: 03/26/2020 Stable. Continue statin therapy and antihypertensives. (11) Aneurysm, common iliac artery Is this a current diagnosis for this admission?: Yes Plan: 03/26/2020 The patient has bilateral iliac artery aneurysms. As noted above continue s tatin therapy and control blood pressure. (12) Alcohol dependence Qualifiers: Substance use status: uncomplicated Qualified Code(s): F10.20 - Alcohol dependence, uncomplicated Is this a current diagnosis for this admission?: Yes Plan: 03/26/2020 The patient has been an inpatient [facility] for the care home facility for several weeks now. Withdrawal should not be an issue. We will monitor closely. 03/27/2020 No evidence of withdrawal (13) Tobacco dependence due to cigarettes Is this a current diagnosis for this admission?: Yes Plan: 03/26/2020 The patient has been hospitalized for several weeks now. He should not be having any nicotine withdrawal. No need for nicotine patch. (14) Noncompliance Is this a current diagnosis for this admission?: Yes Plan: 03/26/2020 Long history of noncompliance. Will likely be returning to the care home facility at this time. Physical Exam Vital Signs: Temp Pulse Resp BP Pulse Ox 98.0 F 74 18 138/60 H 96 03/28/20 08:12 03/28/20 09:15 03/28/20 09:15 03/28/20 08:12 03/28/20 12:12 Intake & Output 03/27/20 03/28/20 03/29/20 06:59 06:59 06:59 Intake Total 1287 520 Output Total 1900 850 Balance -613 -330 Weight 77.9 kg 70.1 kg General appearance: PRESENT: no acute distress, thin, well-developed Head exam: PRESENT: atraumatic, normocephalic Eye exam: PRESENT: conjunctiva pink. ABSENT: scleral icterus Respiratory exam: PRESENT: clear to auscultation sameer, symmetrical, unlabored. ABSENT: rales, rhonchi, tachypnea, wheezes Cardiovascular exam: PRESENT: RRR, +S1, +S2 GI/Abdominal exam: PRESENT: normal bowel sounds, soft. ABSENT: distended, guarding, tenderness Neurological exam: PRESENT: alert, awake, oriented to person, oriented to place, oriented to situation, CN II-XII grossly intact Psychiatric exam: ABSENT: agitated, anxious Skin exam: PRESENT: other - Ulcer left lateral malleolus Results Laboratory Results: WBC 10.7 10^3/uL (4.0-10.5) H 03/27/20 06:50 RBC 2.91 10^6/uL (4.35-5.55) L 03/27/20 06:50 Hgb 9.1 g/dL (13.5-17.0) L 03/27/20 06:50 Hct 26.9 % (37.9-51.0) L 03/27/20 06:50 MCV 92 fl (80-97) 03/27/20 06:50 MCH 31.3 pg (27.0-33.4) 03/27/20 06:50 MCHC 33.8 g/dL (32.0-36.0) 03/27/20 06:50 RDW 12.8 % (11.5-14.0) 03/27/20 06:50 Plt Count 239 10^3/uL (150-450) 03/27/20 06:50 Lymph % (Auto) 17.0 % (13-45) 03/27/20 06:50 Carroll % (Auto) 7.2 % (3-13) 03/27/20 06:50 Eos % (Auto) 0.2 % (0-6) 03/27/20 06:50 Baso % (Auto) 0.2 % (0-2) 03/27/20 06:50 Absolute Neuts (auto) 8.1 10^3/uL (1.7-8.2) 03/27/20 06:50 Absolute Lymphs (auto) 1.8 10^3/uL (0.5-4.7) 03/27/20 06:50 Absolute Monos (auto) 0.8 10^3/uL (0.1-1.4) 03/27/20 06:50 Absolute Eos (auto) 0.0 10^3/uL (0.0-0.6) 03/27/20 06:50 Absolute Basos (auto) 0.0 10^3/uL (0.0-0.2) 03/27/20 06:50 Seg Neutrophils % 75.4 % (42-78) 03/27/20 06:50 PT 15.5 SEC (11.4-15.4) H 03/25/20 21:45 INR 1.23 03/25/20 21:45 Carbonic Acid 1.80 mmol/L (1.05-1.35) H 03/26/20 04:24 HCO3/H2CO3 Ratio 20:1 03/26/20 04:24 ABG pH 7.40 (7.35-7.45) 03/26/20 04:24 ABG pCO2 59.9 mmHg (35-45) H 03/26/20 04:24 ABG pO2 91.9 mmHg (80-100) 03/26/20 04:24 ABG HCO3 36.5 mmol/L (20-24) H 03/26/20 04:24 ABG Total CO2 38.4 mmol/L (23-27) H 03/26/20 04:24 ABG O2 Saturation 96.8 % (94-98) 03/26/20 04:24 ABG Base Excess 10.1 mmol/L 03/26/20 04:24 FiO2 50% 03/26/20 04:24 Sodium 137.4 mmol/L (137-145) 03/27/20 06:50 Potassium 4.0 mmol/L (3.6-5.0) 03/27/20 06:50 Chloride 94 mmol/L (98-107) L 03/27/20 06:50 Carbon Dioxide 39 mmol/L (22-30) H 03/27/20 06:50 Anion Gap 4 (5-19) L 03/27/20 06:50 BUN 26 mg/dL (7-20) H 03/27/20 06:50 Creatinine 0.85 mg/dL (0.52-1.25) 03/27/20 06:50 Est GFR ( Amer) > 60 (>60) 03/27/20 06:50 Est GFR (MDRD) Non-Af > 60 (>60) 03/27/20 06:50 Glucose 225 mg/dL (75-110) H 03/27/20 06:50 POC Glucose 259 mg/dL (70-110) H 03/28/20 12:54 Hemoglobin A1c % 10.0 % (4.7-6.0) H 03/27/20 06:50 Lactic Acid 1.1 mmol/L (0.7-2.1) 03/25/20 21:45 Calcium 8.6 mg/dL (8.4-10.2) 03/27/20 06:50 Magnesium 1.8 mg/dL (1.6-2.3) 03/27/20 06:50 Total Bilirubin 0.6 mg/dL (0.2-1.3) 03/25/20 21:45 Direct Bilirubin 0.2 mg/dL (0.0-0.4) 03/25/20 21:45 Neonat Total Bilirubin Not Reportable 03/25/20 21:45 Neonat Direct Bilirubin Not Reportable 03/25/20 21:45 Neonat Indirect Bili Not Reportable 03/25/20 21:45 AST 37 U/L (17-59) 03/25/20 21:45 ALT 38 U/L (<50) 03/25/20 21:45 Alkaline Phosphatase 182 U/L (38-126) H 03/25/20 21:45 Creatine Kinase 39 U/L (55-170) L 03/25/20 21:45 CK-MB (CK-2) 0.65 ng/mL (<4.55) 03/25/20 21:45 Troponin I 0.017 ng/mL 03/27/20 06:50 NT-Pro-B Natriuret Pep 2270 pg/mL (<450) H 03/25/20 21:45 Total Protein 6.6 g/dL (6.3-8.2) 03/25/20 21:45 Albumin 3.4 g/dL (3.5-5.0) L 03/25/20 21:45 Urine Color YELLOW 03/25/20 22:25 Urine Appearance CLEAR 03/25/20 22:25 Urine pH 6.0 (5.0-9.0) 03/25/20 22:25 Ur Specific [place] 1.017 03/25/20 22:25 Urine Protein 100 mg/dL (NEGATIVE) H 03/25/20 22:25 Urine Glucose (UA) >=500 mg/dL (NEGATIVE) H 03/25/20 22:25 Urine Ketones NEGATIVE mg/dL (NEGATIVE) 03/25/20 22:25 Urine Blood SMALL (NEGATIVE) H 03/25/20 22:25 Urine Nitrite (Reflex) NEGATIVE (NEGATIVE) 03/25/20 22:25 Urine Bilirubin NEGATIVE (NEGATIVE) 03/25/20 22:25 Urine Urobilinogen 2.0 mg/dL (<2.0) H 03/25/20 22:25 Leukocyte Esterase Rfl NEGATIVE (NEGATIVE) 03/25/20 22:25 Urine RBC (Auto) 9 /HPF 03/25/20 22:25 U Hyaline Cast (Auto) 16 /LPF 03/25/20 22:25 Urine Bacteria (Auto) TRACE /HPF 03/25/20 22:25 Urine WBC (Reflex) 5 /HPF 03/25/20 22:25 Squamous Epi Cells Auto <1 /HPF 03/25/20 22:25 Urine Mucus (Auto) RARE /LPF 03/25/20 22:25 Urine Yeast (Budding) PRESENT /HPF 03/25/20 22:25 Urine Ascorbic Acid NEGATIVE (NEGATIVE) 03/25/20 22:25 COVID-19 Source NASOPHARYNGEAL 03/25/20 22:33 COVID-19 ([place]) NOT DETECTED 03/25/20 22:33 03/25/20 03/25/20 03/26/20 21:45 21:45 01:04 CK-MB (CK-2) 0.65 Troponin I < 0.012 0.028 NT-Pro-B Natriuret Pep 2270 H 03/26/20 03/27/20 07:49 06:50 CK-MB (CK-2) Troponin I 0.027 0.017 NT-Pro-B Natriuret Pep Impressions: Chest X-Ray 03/25/20 21:48 IMPRESSION: No significant change in the appearance of the chest. Chest/Abdomen CTA 03/26/20 00:21 IMPRESSION: No aortic dissection or aneurysm. No pulmonary embolus. Bilateral pleural effusions without definite pneumonia. Plan Health Concerns: Complete treatment of the osteomyelitis Plan of Treatment: Ongoing Zosyn for 4 more weeks. CBC, sed rate and BMP weekly for monitoring Goals: Complete resolution of osteomyelitis. Complete healing of the ulcer. Increase strength and mobility. Time Spent: Greater than 30 Minutes Stroke Is this a Stroke Patient?: No Acute Heart Failure - Is this a Heart Failure Patient?: No
[2020-03-28 15:34] VITALS: BP 125/86
== END 2020-03-28 15:48 | DRG 189 ==
LOC: ER 21:35 → EH 03-26 00:33 → 5 03-26 05:21 → 3W 03-27 21:38
PROVIDERS: ADMIT Internal Medicine; ATTEND Hospitalist
PROC: 5A09457 Assistance with Respiratory Ventilation, 24-96 Consecutive Hours, Continuous Positive Airway Pressure (ICD-10-PCS; principal; 2020-03-26)
DX: J96.22 Acute and chronic respiratory failure with hypercapnia (principal); I50.23 Acute on chronic systolic (congestive) heart failure; M86.672 Other chronic osteomyelitis, left ankle and foot; L97.329 Non-pressure chronic ulcer of left ankle with unspecified severity; I25.2 Old myocardial infarction; J44.9 Chronic obstructive pulmonary disease, unspecified; M19.90 Unspecified osteoarthritis, unspecified site; I11.0 Hypertensive heart disease with heart failure; E11.69 Type 2 diabetes mellitus with other specified complication; E11.65 Type 2 diabetes mellitus with hyperglycemia; E11.51 Type 2 diabetes mellitus with diabetic peripheral angiopathy without gangrene; Z66 Do not resuscitate; E11.622 Type 2 diabetes mellitus with other skin ulcer; R58 Hemorrhage, not elsewhere classified; F10.20 Alcohol dependence, uncomplicated; D72.829 Elevated white blood cell count, unspecified; I72.3 Aneurysm of iliac artery; F17.210 Nicotine dependence, cigarettes, uncomplicated; Z20.828 Contact with and (suspected) exposure to other viral communicable diseases; E78.49 Other hyperlipidemia; I25.10 Atherosclerotic heart disease of native coronary artery without angina pectoris; I71.4 Abdominal aortic aneurysm, without rupture; Z79.82 Long term (current) use of aspirin; Z79.4 Long term (current) use of insulin; Z91.19 Patient's noncompliance with other medical treatment and regimen; Z85.118 Personal history of other malignant neoplasm of bronchus and lung; Z95.820 Peripheral vascular angioplasty status with implants and grafts
CPT/HCPCS: 36415; 36600; 71045; 71275; 80048; 80053; 81001; 82550; 82553; 82803; 82962; 83036; 83605; 83735; 83880; 84484; 85025; 85610; 87040; 87635; 93005; 93010; 94660; 96365; 96366; 96375; 99291; C9803; J1644; J1815; J1940; J2930; J3490; J7030; J7620

== ENCOUNTER → 2020-04-05 | Outpatient (CLI) | payer MEDICARE, OTHER | LOC: RAD 13:43 | PROVIDERS: ATTEND Nurse Practitioner Family | DX: L97.314 Non-pressure chronic ulcer of right ankle with necrosis of bone (principal); Z53.8 Procedure and treatment not carried out for other reasons ==

== ENCOUNTER → 2020-05-06 | Outpatient (CLI) | payer MEDICARE, OTHER ==
--- NOTE | 2020-05-06 12:12 | RADIOLOGY REPORT (SQ) ---
EXAM DESCRIPTION: MRI LT LOWER EXTREMITY COMBO IMAGES COMPLETED DATE/TIME: 05/06/2020 11:08 am REASON FOR STUDY: L97.524 NON-PRS CHRONIC ULCER OTH PRT LEFT FOOT W NECROSIS OF BONE L97.524 NON-ID S CHRONIC ULCER OTH PRT LEFT FOOT W NECROSIS O COMPARISON: No recent comparison studies. Correlated with radiographs from 03/01/2020. TECHNIQUE: Multiplanar imaging of the left ankle to include T1-weighted, postcontrast T1-weighted, a nd T2-weighted images. CONTRAST TYPE AND DOSE: mL RENAL FUNCTION: Not indicated. ACR Type II contrast agent associated with few, if any, unconfounded cases of NSF LIMITATIONS: None. FINDINGS: BONE MARROW: Marrow edema in the distal fibula. Rarefaction of cortex with abnormal corre sponding intermediate T1 signal. Consistent with osteomyelitis. Areas of bone infarct in the calcan eus. Osteonecrosis in the talar dome without articular surface collapse. SOFT TISSUES: Soft tissue thickening and edema along the lateral ankle overlying the region of osteom yelitis. Probable necrotic subcutaneous tissue with peripheral enhancing scar but no drainable absce ss. Measures up to 2.6 cm in the axial plane. OTHER: No other significant finding. IMPRESSION: 1. Lateral chronic ankle ulcer with underlying osteomyelitis in the fibula. Call report tasked to the [facility] CORE team at the time of interpretation. TECHNICAL DOCUMENTATION: JOB ID: [id number] 2010 [employer]- All Rights Reserved Reading location - IP/workstation name: [email or web address]
== END ==
LOC: RAD 09:59
PROVIDERS: ATTEND Nurse Practitioner Family
DX: M86.8X6 Other osteomyelitis, lower leg (principal); L97.524 Non-pressure chronic ulcer of other part of left foot with necrosis of bone
CPT/HCPCS: 73720; A9576

== ENCOUNTER → 2020-07-19 | Outpatient (CLI) | payer MEDICARE, OTHER ==
--- NOTE | 2020-07-19 15:44 | RADIOLOGY REPORT (SQ) ---
EXAM DESCRIPTION: CHEST 2 VIEWS IMAGES COMPLETED DATE/TIME: 07/19/2020 2:01 pm REASON FOR STUDY: J93.9 PNEUMOTHORAX, UNSPECIFIED COMPARISON: 03/25/2020 EXAM PARAMETERS: NUMBER OF VIEWS: two views TECHNIQUE: Digital Frontal and Lateral radiographic views of the chest acquired. RADIATION DOSE: NA LIMITATIONS: none FINDINGS: LUNGS AND PLEURA: Hyperexpansion of the lungs. No pneumothorax. No pleural effusion. Ch ronic interstitial changes. MEDIASTINUM AND HILAR STRUCTURES: No masses or contour abnormalities. HEART AND VASCULAR STRUCTURES: Heart normal size. No evidence for failure. BONES: Lateral fracture of the right 6th rib does not appear to be acute. HARDWARE: None in the chest. OTHER: No other significant finding. IMPRESSION: Chronic lung changes. No pneumothorax. TECHNICAL DOCUMENTATION: JOB ID: [id number] 2010 [employer]- All Rights Reserved Reading location - IP/workstation name: [email or web address]
--- NOTE | 2020-07-19 16:42 | RADIOLOGY REPORT (SQ) ---
EXAM DESCRIPTION: MRI LT LOWER JOINT WITHOUT IMAGES COMPLETED DATE/TIME: 07/19/2020 2:52 pm REASON FOR STUDY: L97.524 NON-PRS CHRONIC ULCER OTH PRT LEFT FOOT W NECROSIS OF BONE L97.524 NON-WA S CHRONIC ULCER OTH PRT LEFT FOOT W NECROSIS O COMPARISON: 05/06/2020 TECHNIQUE: Left ankle images acquired and stored on PACS. Multiplanar images include fat sensitive s equences as T1, fluid sensitive sequences as FST2/STIR, cartilage sensitive sequences as FSPD, and gr adient echo sequences. LIMITATIONS: None. FINDINGS: BONE MARROW: Mild marrow edema in the lateral malleolus. Likely reactive to the overlying wound. Edema looks less pronounced compared to prior. No bone destruction to suggest osteomyelitis . Chronic medial malleolus tip avulsion fragment. Chronic areas of AVN in the calcaneus and now mor e well-defined in the talar dome. EFFUSIONS: No subtalar or tibiotalar effusions. No loose bodies. OSSEOUS ARTICULATIONS: No overt subluxation or dislocation. TALAR DOME AND TIBIAL PLAFOND: As above. ACHILLES TENDON: Intact without partial or full-thickness tear. No adjacent bursal fluid or edema. TIBIALIS ANTERIOR TENDON: Intact without edema at the 1st MT attachment. TIBIALIS POSTERIOR TENDON: Normal morphology and no edema at the navicular attachment. No tendon camacho th fluid. FLEXOR HALLUCIS LONGUS AND FLEXOR DIGITORUM TENDONS: Normal morphology and no tendon sheath fluid. No edema of the os trigonum. PERONEUS LONGUS AND BREVIS TENDON: Peroneus longus tendon with tendinosis but otherwise intact. Segm ental nonvisualization of the peroneus brevis tendon as it courses along the lateral ankle with mild chronic subcutaneous edema and thickening here which looks improved. ATFL, CFL, PTFL: Intact. No thickening or signal alteration. No andreina-ligamentous fluid. DELTOID LIGAMENT: Visualized components intact. TARSAL TUNNEL: No masses. No muscle atrophy. SINUS TARSI: No fluid. No reactive marrow edema or erosions. PLANTAR FASCIA: No signal alteration or tear. ADJACENT SOFT TISSUES: No drainable collections. Mild edema about the ankle. OTHER: No other significant finding. IMPRESSION: 1. Skin changes along the lateral ankle, reported wound here with underlying reactive marrow edema. The appearance looks improved overall compared to the prior. No suggestion of osteomyelitis. 2. 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 3. Other findings as noted above. TECHNICAL DOCUMENTATION: JOB ID: [id number] 2010 [employer]- All Rights Reserved Reading location - IP/workstation name: [email or web address]
== END ==
LOC: RAD 13:43
PROVIDERS: ATTEND Nurse Practitioner Family
DX: E11.621 Type 2 diabetes mellitus with foot ulcer (principal); L97.524 Non-pressure chronic ulcer of other part of left foot with necrosis of bone; M87.875 Other osteonecrosis, left foot
CPT/HCPCS: 71046

== ENCOUNTER → 2020-08-23 | Outpatient (CLI) | payer MEDICARE, OTHER ==
--- NOTE | 2020-08-23 15:37 | RADIOLOGY REPORT (SQ) ---
EXAM DESCRIPTION: ANKLE LEFT COMPLETE IMAGES COMPLETED DATE/TIME: 08/23/2020 2:14 pm REASON FOR STUDY: NON-PRS CHRONIC ULCER OTH PRT LEFT FOOT W NECROSIS OF BONE L97.524 NON-PRS CHRONI C ULCER OTH PRT LEFT FOOT W NECROSIS O COMPARISON: None. NUMBER OF VIEWS: Three views. TECHNIQUE: AP, lateral, and oblique radiographic images acquired of the left ankle. LIMITATIONS: None. FINDINGS: MINERALIZATION: Normal. BONES: No evidence of osteomyelitis. JOINTS: No effusions. SOFT TISSUES: No soft tissue swelling. No foreign body. OTHER: No other significant finding. IMPRESSION: There is no evidence of osteomyelitis. No acute fracture. TECHNICAL DOCUMENTATION: JOB ID: [id number] 2010 [employer]- All Rights Reserved Reading location - IP/workstation name: [email or web address]
== END ==
LOC: EDBD 13:44 → RAD 13:44
PROVIDERS: ATTEND Nurse Practitioner Family
DX: L97.524 Non-pressure chronic ulcer of other part of left foot with necrosis of bone (principal)